=== PATIENT | female | born 1940 | race Caucasian/White ===

== ENCOUNTER 2017-06-24 11:00 | Inpatient (IN) | payer MEDICARE ==
[2017-06-24] MEDS ORDERED: NS 0.9% 1000 ML* 1,000 ML IV ONE ×2 (11:01→11:21)
[2017-06-24] MEDS ORDERED: Piperacillin/Tazobac ADVAN(*) 3.375 GM in NS 0.9% 100 ML* 100 ML IVPB ONE (11:21)
[2017-06-24] MEDS ORDERED: Acetaminophen TAB* 325 MG PO ONE (11:27)
--- NOTE | 2017-06-24 11:28 | RAD ---
INDICATION: "Head feels funny" COMPARISON: None. TECHNIQUE: Contiguous axial sections of the brain were obtained from the skull base to the vertex without contrast. Sagittal and coronal reformats were created and reviewed FINDINGS: The ventricles, cisterns and sulci are within normal limits. There is mild periventricular and subcortical white matter hypoattenuation most consistent with mild microvascular disease. Otherwise the thompson-white matter differentiation is adequately maintained and there is no sulcal effacement. On the first set of axial images there is the appearance of loss of differentiation of the thompson-white matter at the right posterior parietal and occipital lobes (axial image 20 of 36). Subsequent axial imaging acquired 3 minutes later does not demonstrate this finding and this is likely secondary to oblique positioning as opposed to a true intracranial abnormality. This appearance is not discernible in either the coronal or sagittal reformats. No significant focal abnormality or mass effect is present. There is no evidence for intracranial hemorrhage. No significant focal osseous abnormality is present. The visualized portion of the paranasal sinuses and mastoid air cells appear clear. IMPRESSION: Evidence of mild microvascular disease without acute intracranial hemorrhage or other acute intracranial abnormality. Findings discussed with Dr. Epperson over the telephone at 1122 hours on June 24, 2017.
[2017-06-24] MEDS ORDERED: Vancomycin(*) 1,250 MG in NS 0.9% 250 ML* 250 ML IVPB ONE (11:44)
[2017-06-24] MEDS ORDERED: LORazepam INJ* 2 MG/ML 1 ML VIAL IV PUSH ONE (11:45)
[2017-06-24 12:04] LABS: ABS Basophils 0.2 10^3/ul (0-0.2); ABS Eosinophils 0 10^3/ul (0-0.6); ABS Lymphocytes 0.3 10^3/ul (1.0-4.8); ABS Monocytes 0.6 10^3/ul (0-0.8); ABS Neutrophils 14.8 10^3/ul (1.5-7.7); ABS Nucleated RBC 0 10^3/ul; Eosinophil % 0 % (0-6); Hematocrit 37 % (35-47); Hemoglobin 12.4 g/dl (12.0-16.0); Mean Corpuscular HGB Conc 34 g/dl (31-36); Mean Corpuscular Hemoglobin 35 pg (27-31); Mean Corpuscular Volume 105 fL (80-97); Mean Platelet Volume 8 um3 (7.4-10.4); Nucleated Red Blood Cells % 0; Platelet Count 192 10^3/ul (150-450); Red Cell Distribution Width 14 % (10.5-15)
[2017-06-24 12:13] LABS: INR 1.02 (0.77-1.02)
[2017-06-24] MEDS ORDERED: Acetaminophen SUPP* 650 MG SUPP PR ONE (12:14)
--- NOTE | 2017-06-24 12:26 | RAD ---
INDICATION: Neurologic change. Code thompson COMPARISON: None TECHNIQUE: An AP portable view obtained at 1200 hours is submitted. FINDINGS: Bones/Soft Tissues: There are no acute bony findings. Cardiomediastinal: The cardiomediastinal silhouette is normal. Lungs: The interstitium is prominent likely related to a component of interstitial congestion. There may be underlying chronic changes as well. Pleura: There are no pleural effusions. Other: None IMPRESSION: MILD INTERSTITIAL PROMINENCE WITH SUSPECTED INTERSTITIAL CONGESTION.
[2017-06-24 12:28] LABS: EGFR Non-African American 85.1 (>60)
[2017-06-24 12:52] LABS: Monocytes % 3 % (0-13)
[2017-06-24] MEDS ORDERED: D5W IVPB ONE (13:00)
[2017-06-24] MEDS ORDERED: VANCOMYCIN IVPB ONE (13:00)
[2017-06-24] MEDS ORDERED: NS 0.9% 1000 ML* 2,000 ML IV ONE (13:34)
[2017-06-24] MEDS ORDERED: ACYCLOVIR IVPB ONE (14:00)
[2017-06-24] MEDS ORDERED: NS 0.9% IVPB ONE (14:00)
[2017-06-24] MEDS ORDERED: Acetaminophen SUPP* 650 MG SUPP PR PRN (14:37)
[2017-06-24] MEDS ORDERED: Vancomycin per Pharmacy* NOTE FOLLOW UP SCH (15:00)
[2017-06-24 15:09] LABS: Urine Appearance Cloudy; Urine Blood 2+ (Negative); Urine Color Yellow; Urine Ketones Trace (Negative); Urine Protein 1+(30 mg/dL) (Negative); Urine Specific Gravity 1.017 (1.010-1.030); Urine Urobilinogen Negative (Negative)
[2017-06-24] MEDS ORDERED: Ondansetron INJ* 2 MG/ML VIAL ONE (15:43)
[2017-06-24] MEDS ORDERED: Ondansetron INJ* 2 MG/ML VIAL IV ONE (15:47)
[2017-06-24] MEDS: cefTRIAXone(*) 2 GM in NS 0.9% 100 ML* 100 ML IVPB SCH (16:34)
--- NOTE | 2017-06-24 17:08 | PN ---
Progress Note - Progress Note Date of Service: 06/24/08 - Note: Case discussed with Adrianna Carey RN, and patient examined at bedside. This is a 77 y/o female admitted with an acute meningitis that is most likely bacterial ( low CSF glucose) - she is being treated with high-dose ceftriaxone and vancomycin, and a consult has been sent to the ID service. Is hemodynamically stable. Cultures (CSF and blood) pending, and pneumococcal urinary antigen pending. Patient has a history of rheumatoid arthritis, Rx methotrexate and ? steroids.
[2017-06-24] MEDS: methylPREDNISolone 125 MG* 2 ML VIAL IV SCH (18:31)
[2017-06-24] MEDS: NS 0.9% 1000 ML* 1,000 ML IV SCH (19:26)
--- NOTE | 2017-06-24 19:35 | PN ---
Hospitalist Progress Note Date of Service: 06/24/17 . Hospitalist Cross Cover Note: In consultation with Dr. Rod (ICU Attending) I am adding high dose ampicillin to Vancomycin and Ceftriaxone, in accordance with "recommendations for the empiric antimicrobial therapy for purulent meningitis based on patient age and specific predisposing conditions". Reference: [email or web address]= [email or web address]=[email or web address]&rank=2~150&source=see_link
[2017-06-24] MEDS ORDERED: NS 0.9% IVPB SCH (20:00)
[2017-06-24] MEDS ORDERED: ACYCLOVIR IVPB SCH (20:00)
--- NOTE | 2017-06-24 21:22 | HP ---
CC: Rosy Arora NP * HOSPITAL MEDICINE HISTORY AND PHYSICAL: DATE OF ADMISSION: 06/24/17 DOWELER: Rosy Arora NP ATTENDING PHYSICIAN: Ever Rod MD * (Dictation provided by Adrianna Carey NP ) CHIEF COMPLAINT: Patient found confused and down on floor. HISTORY OF PRESENT ILLNESS: Ms. Hernandes is a 77-year-old female with a past medical history of rheumatoid arthritis who presented to the hospital today after her family found her on the floor in the bathroom. Ms. Hernandes was reportedly in her normal state of health. She lives independently with her grandson and is very active. She is on multiple medications including Humira, methotrexate, and hydroxychloroquine for rheumatoid arthritis. She reportedly told her son's girlfriend that she was having some pain in her arm and was going to go to bed early last night. This morning, they called over and when she did not answer the phone, they drove down to check on her. They found her in the bathroom. She appeared restless and uncomfortable. She had slurred speech and EMS was called. EMS reports the patient was complaining of pain along her ribs. The patient also reported when she arrived to the emergency room that she had had increased diarrhea yesterday. I note that from Rosy Arora's note that the patient has 2 to 3 loose stools at baseline daily, but it seems perhaps that this is worsened in the past 24 hours. In the emergency room, the patient has had three loose stools. She seems to be evidencing abdominal pain. Because of her fever and her altered mental status, Ms. Hernandes had an LP. The results of that are pending; however, emergency room physicians made note of extremely purulent CSF by visual inspection. The patient was given Ativan to tolerate this procedure and is now minimally responsive with me. Prior to that, nursing staff reports that she was stiff and moaning, but able to say her name, knew where she was and was able to offer some details about the events leading up to today, more specifically this issue with diarrhea. The patient evidenced severe sepsis with white blood cell count of 16.0, her bands are 7, her neutrophils are 89. Her blood gas shows an acidosis, likely a mixed metabolic and respiratory acidosis with a pH of 7.30. Her BUN and creatinine are normal. She has mild hyponatremia. Her vital signs show a temperature of 102.1. She was hypotensive after getting Ativan with a systolic blood pressure running in the 70s to 80s, but now has systolic blood pressure running around 110. She is not tachycardic. PAST MEDICAL HISTORY: 1. Rheumatoid arthritis. 2. SBO x3. 3. Appendectomy. 4. Hysterectomy. 5. History of cholecystectomy. MEDICATIONS: The patient's pharmacy was called for a list of medications and it was confirmed that she is on: 1. Methotrexate 15 mg p.o. weekly. 2. Folic acid 2 mg p.o. daily. 3. Hydroxychloroquine 200 mg p.o. b.i.d. 4. The note from the patient's commercial collector also notes fexofenadine 60 mg daily. 5. Humira every other week 40 mg. 6. Lidoderm patch as needed. 7. Voltaren 1% to affected area b.i.d. 8. Prolia 60 mg subcutaneous q.6 months. 9. Vitamin E 1 p.o. daily. 10. Vitamin D 1000 units p.o. daily. 11. Lactose intolerance pill 1 daily. 12. Multivitamin 1 p.o. daily. 13. Vitamin C 500 mg p.o. 1 daily. 14. Calcium 1250 mg 1 p.o. daily. 15. Fiber cap 1 p.o. daily. 16. Imodium 2 mg p.r.n. 17. Vitamin A 10,000 units p.o. daily. 18. Combigan 0.2/0.5% one drop both eyes b.i.d. 19. Tylenol Arthritis Pain 650 mg as needed. ALLERGIES: No known drug allergies. FAMILY HISTORY: Unobtainable. SOCIAL HISTORY: Unobtainable, though I do note from the patient's nurse practitioner Ulysses that she is a current smoker, at least she was as of January. REVIEW OF SYSTEMS: Unobtainable. PHYSICAL EXAMINATION GENERAL: Ms. Hernandes is lying on her side in the bed. She appears uncomfortable. Her brow was furrowed and she is moaning gently. The patient is a cachectic elderly female. VITAL SIGNS: Temperature 102.1, pulse rate 93, respiratory rate 29, O2 saturation 98% on room air, blood pressure 120/70. LUNGS: Clear to auscultation bilaterally with no accessory muscle use and good aeration. HEART: S1, S2. No murmur, rub, or gallop, and regular. ABDOMEN: Soft. It appears tender to palpation as the patient has evidence of pain and more moaning when I pressed on her abdomen. The bowel sounds are hyperactive. EXTREMITIES: No cyanosis or edema. NEURO: She is minimally responsive to painful stimulus, withdrawing somewhat. She has positive Babinski's in both legs. She has pupils that are equal and reactive. SKIN: Intact. DIAGNOSTIC STUDIES/LABORATORY DATA: Sodium 132, potassium 3.9, chloride 100, serum bicarbonate 23, BUN 15, creatinine 0.67, glucose 144. Lactic acid 1.6. WBC 16.0, hemoglobin 12.4, hematocrit 37, platelet count 192. INR is 1.02. Blood gas, it is a VBG, showing pH 7.30, pCO2 49, pO2 20, bicarbonate 21.3. Base excess negative 2.7. The patient had a CT brain, which was read as follows, "evidence of mild microvascular disease without acute intracranial hemorrhage or other intracranial abnormality." Chest x-ray is read as follows, "mild interstitial prominence with suspected interstitial congestion." EKG shows a sinus rhythm with a heart rate of 90 with no overt evidence of ischemia. ASSESSMENT: Ms. Hernandes is a 77-year-old female with a past medical history of rheumatoid arthritis, on immunosuppressants, who presents to the hospital with complaint of possible diarrhea over the past 24 hours culminating being found down on the floor in her bathroom by family. In the emergency room today , she had an LP with concern for purulent CSF and possible bacterial meningitis. She is also evidencing severe sepsis with altered mental status. Our plans are for inpatient admission to the intensive care unit for the followin. Severe sepsis. Based on the description of the CSF, bacterial meningitis is the most likely cause of her severe sepsis, especially in the setting of the patient's immunocompromised state. The CSF testing is still being run at this time. In the meantime, she will have ceftriaxone 2 g q.12 hours for meningitis dosing. She will continue on vancomycin per pharmacy dosing and I would like to continue acyclovir until the determination is made regarding meningitis. The patient has 4 L of IV fluids ordered in the emergency room. Blood cultures have been ordered. Lactic acid is normal. 2. Rheumatoid arthritis, plan to hold on her immunosuppressants while she is acutely ill. She will have pain medications as needed. 3. Diarrhea. The patient has had report of increased diarrhea and 3 bowel movements since arriving to the ED. On my examination, I am concerned that she is tender to palpation in the abdomen. Consideration will be given for a CT of the abdomen based on the clinical course. 4. Code status is DNR/DNI and a MOLST form was completed with the patient's son who is at the bedside today. TIME SPENT: Approximately 75 minutes were spent on the admission of this patient, more than half of the time was spent with the patient at the bedside reviewing the events leading up to this hospitalization, performing the physical examination, and reviewing the plan of care. ADRIANNA CAREY, JAQUAN [id number]/[facility] #: [id number] I agree with Adrianna Carey's assessment and management plan - after admission, patient was discovered to have a pneumococcal meningitis, which was managed with ceftriaxone and vancomycin. Ever RODGERS
[2017-06-24] MEDS: Ampicillin IV* 2 GM in NS 0.9% 100 ML* 100 ML IVPB SCH (21:53)
[2017-06-24] MEDS: Heparin VIAL(*) 5000 UNITS/ML VIAL (FIVE THOUSAND) SUBCUT SCH (21:53)
[2017-06-25] MEDS ORDERED: VANCOMYCIN IVPB SCH (02:00)
[2017-06-25] MEDS ORDERED: D5W IVPB SCH (02:00)
[2017-06-25] MEDS: Ampicillin IV* 2 GM in NS 0.9% 100 ML* 100 ML IVPB SCH ×2 (03:38→09:21)
[2017-06-25] MEDS: cefTRIAXone(*) 2 GM in NS 0.9% 100 ML* 100 ML IVPB SCH ×2 (04:16→18:06)
[2017-06-25] MEDS ORDERED: Morphine INJ* 2 MG/ML 1 ML SYRINGE (TWO MG - NEW SYRINGE VERSION) ONE (04:37)
[2017-06-25] MEDS: Heparin VIAL(*) 5000 UNITS/ML VIAL (FIVE THOUSAND) SUBCUT SCH ×3 (06:05→22:47)
[2017-06-25] MEDS: NS 0.9% 1000 ML* 1,000 ML IV SCH (06:06)
[2017-06-25 06:46] LABS: ABS Basophils 0 10^3/ul (0-0.2); ABS Eosinophils 0 10^3/ul (0-0.6); ABS Lymphocytes 0.5 10^3/ul (1.0-4.8); ABS Monocytes 1.1 10^3/ul (0-0.8); ABS Neutrophils 19.1 10^3/ul (1.5-7.7); ABS Nucleated RBC 0.03 10^3/ul; Eosinophil % 0 % (0-6); Hematocrit 34 % (35-47); Hemoglobin 11.6 g/dl (12.0-16.0); Lymphocyte % 2.2 % (25-47); Mean Corpuscular HGB Conc 34 g/dl (31-36); Mean Corpuscular Hemoglobin 35 pg (27-31); Mean Corpuscular Volume 104 fL (80-97); Mean Platelet Volume 9 um3 (7.4-10.4); Nucleated Red Blood Cells % 0.1; Platelet Count 166 10^3/ul (150-450); Red Blood Count 3.29 10^6/ul (4.0-5.4); Red Cell Distribution Width 14 % (10.5-15); White Blood Count 20.7 10^3/ul (3.5-10.8)
[2017-06-25 06:57] LABS: EGFR Non-African American 138.3 (>60)
[2017-06-25] MEDS: methylPREDNISolone 125 MG* 2 ML VIAL IV SCH (08:31)
[2017-06-25] MEDS: Famotidine TAB* 20 MG PO SCH (08:37)
--- NOTE | 2017-06-25 10:22 | PN ---
Critical Care Services: Patient has bacteremic pneumococcal meningitis, with positive cultures in CSF and blood (x2). Is on high-dose ceftriaxone and vancomycin (the recommended initial Rx), and there is no evidence of multiorgan involvement or septic shock. The patient is somnolent but arousable this AM, and complains of a headache when awake. Vital Signs: Temp Pulse Resp BP SpO2 FiO2 98.4 F 85 28 118/63 92 Physical Exam: Gen:Somnolent but arouses. Asking "will I get better" when awake. HEENT: Pupils midposition and reactive. No nuchal rigidity Lungs: clear Extremities: Warm Fluid Balance (Past 24 Hours): 06/25/17 06:59 Intake Total 1619 Output Total 1100 Balance +519 Weight 97 lb Intake: IV Fluids 979 NS (0.9%) 879 IVPB 640 NS (0.9%) 640 Oral 0 Output: [place] 1100 Other: Date of Last Bowel 06/24/2017 Movement Labs: 06/24/17 06/25/17 06/25/17 15:30 06:10 06:10 WBC 20.7 Hgb 11.6 Hct 34 Plt Count 166 Sodium 133 Potassium 3.2 Chloride 103 Carbon Dioxide 22 BUN 8 Creatinine 0.44 Glucose 119 Influenza A (Rapid) Negative Influenza B (Rapid) Negative Studies: CSF and blood cultures: as reported above. Nutrition: None at present. Impression: Pneumococcal meningitis with bacteremia. No evidence for pneumococcal pneumonia. Plan: 1. Continue high-dose ceftriaxone and vancomycin (with target trough level of 20 -25 mcg/mL), pending sensitivities. 2. Begin oral feeding as soon as feasible. 3. ID consult pending.
[2017-06-25] MEDS: KCL premix 10MEQ/50 ML x 3 RUNS IV SCH ×4 (11:30→16:01)
[2017-06-25] MEDS ORDERED: KCL 20 MEQ/100 ML IVPREMIX* 20 MEQ/100 ML BAG IV SCH (12:00)
[2017-06-25] MEDS: Morphine INJ* 2 MG/ML 1 ML SYRINGE (TWO MG - NEW SYRINGE VERSION) IV PRN ×2 (14:29→20:34)
[2017-06-25] MEDS: Vancomycin(*) 750 MG in NS 0.9% 250 ML* 250 ML IVPB SCH ×2 (14:42→22:41)
--- NOTE | 2017-06-25 20:02 | CONS ---
CONSULTATION REPORT: DATE OF CONSULT: 06/25/17 REQUESTING PHYSICIAN: Dr. Willson. CONSULTING SERVICE: Infectious Disease. REASON FOR CONSULT: Bacterial meningitis. IMPRESSION: 1. Invasive pneumococcal infection with bacterial meningitis and pneumococcal bacteremia. 2. Sepsis present on admission due to #1. 3. Encephalopathy present on admission and persistent due to #1. 4. Rheumatoid arthritis, on low-dose corticosteroid and methotrexate. RECOMMENDATION: 1. Agree with ceftriaxone 2 g IV twice daily and vancomycin until the pneumococcal susceptibility data is back, if it is not intermediate to cephalosporins, we could stop the vancomycin. She is still critically ill and has a reasonable risk of mortality from this infection. If she improves then, plan on 2 weeks of IV ceftriaxone. 2. Stress-dose steroids. HISTORY OF PRESENT ILLNESS: This is a 77-year-old woman with rheumatoid arthritis, admitted with severe headache and neck stiffness on 06/24/17. She cannot provide any history of admission because of her infection, which was obtained instead from discussion with Dr. Willson and review of the medical records. The family had found her on the floor in her home and she is otherwise a pretty active person and independent. She had apparently had worsening diarrhea. She had a lumbar puncture done in the emergency room. It showed 2800 white cells, 100% neutrophils, glucose less than 10, protein 420, Gram stain showed gram-positive cocci in chains. I discussed the case with Dr. Willson last night and recommended antibiotics as has been done. She was in the ICU overnight and transferred out with a stable blood pressure. She still cannot provide any history. PAST MEDICAL HISTORY: 1. Rheumatoid arthritis. 2. Small bowel obstruction. 3. Appendectomy. 4. Status post hysterectomy. 5. Status post cholecystectomy. MEDICATIONS: 1. Tylenol. 2. Famotidine. 3. Heparin subcutaneous injection. 4. Methylprednisolone 60 mg a day. 5. Ceftriaxone 2 g every 12 hours. 6. Vancomycin 750 mg every 8 hours. ALLERGIES: No known drug allergies. FAMILY HISTORY: Unobtainable. SOCIAL HISTORY: Unobtainable. REVIEW OF SYSTEMS: Unobtainable given her mental status. PHYSICAL EXAM: Vital Signs: Temperature 37, heart rate 70, respiratory rate 30 , blood pressure 109/43, O2 sat 94% on room air. General: She is asleep. She withdraws to pain. She answers yes or no to a couple of questions; otherwise does not participate. She does not open her eyes. HEENT: There is no conjunctival hemorrhage. Oropharynx without lesions. Neck: Neck is rigid. Lymph Nodes: There is no cervical, supraclavicular, inguinal, axillary, or epitrochlear lymphadenopathy. Heart: Regular and tachycardic without murmurs. Lungs: Clear to auscultation bilaterally. Abdomen: Soft, nontender, and nondistended. There are bowel sounds present. Skin: There is no rash or splinter hemorrhages. Musculoskeletal: There is no spine tenderness to palpation. There is no joint synovitis. She maintains her hips and knees flexed in bed. Neurologic: She withdraws both feet to painful stimuli, both arms to painful stimuli. LABORATORY DATA: White blood cell count 20, hemoglobin 11, and platelets 166. Creatinine is 0.4. Please see impressions and recommendations as outlined above. Thanks for asking me to see Ms. Hernandes in consultation. [id number]/[facility] #: [id number] VISHAL
[2017-06-26] MEDS: Morphine INJ* 2 MG/ML 1 ML SYRINGE (TWO MG - NEW SYRINGE VERSION) IV PRN ×2 (02:56→08:21)
[2017-06-26] MEDS: cefTRIAXone(*) 2 GM in NS 0.9% 100 ML* 100 ML IVPB SCH ×2 (05:06→17:02)
[2017-06-26] MEDS: Heparin VIAL(*) 5000 UNITS/ML VIAL (FIVE THOUSAND) SUBCUT SCH ×3 (05:16→21:41)
[2017-06-26] MEDS: Vancomycin(*) 750 MG in NS 0.9% 250 ML* 250 ML IVPB SCH (05:54)
[2017-06-26 08:20] LABS: Hematocrit 32 % (35-47); Hemoglobin 11.1 g/dl (12.0-16.0); Mean Corpuscular HGB Conc 34 g/dl (31-36); Mean Corpuscular Hemoglobin 35 pg (27-31); Mean Corpuscular Volume 102 fL (80-97); Mean Platelet Volume 8 um3 (7.4-10.4); Platelet Count 184 10^3/ul (150-450); Red Blood Count 3.17 10^6/ul (4.0-5.4); Red Cell Distribution Width 14 % (10.5-15); White Blood Count 25.5 10^3/ul (3.5-10.8)
[2017-06-26] MEDS: methylPREDNISolone 125 MG* 2 ML VIAL IV SCH (08:20)
[2017-06-26] MEDS: Famotidine TAB* 20 MG PO SCH (08:21)
[2017-06-26 08:56] LABS: EGFR Non-African American 138.3 (>60)
--- NOTE | 2017-06-26 09:08 | PN ---
Subjective Date of Service: 06/26/17 Interval History: Pt is c/o mild tailbone pain this AM. She also states she has a persistent headache. She has tried to get up to the side of the bed to go to the bathroom this AM. She had a loose stool and was able to tell me that she will have diarrhea at home intermittently. Objective Active Medications: Acetaminophen (Tylenol Supp*) 650 mg NC Q6H PRN PRN Reason: FEVER Last Admin: 06/25/17 00:46 Dose: 650 mg Famotidine (Pepcid Tab*) 20 mg PO DAILY [facility] Last Admin: 06/26/17 08:21 Dose: 20 mg Heparin Sodium (Porcine) (Heparin Vial(*)) 5,000 units SUBCUT Q8HR [facility] Last Admin: 06/26/17 05:16 Dose: 5,000 units Ceftriaxone Sodium 2 gm/ (Sodium Chloride) 100 mls @ 200 mls/hr IVPB Q12H [facility] Last Admin: 06/26/17 05:06 Dose: 200 mls/hr Lactated Ringer's (Lactated Ringers 1000 Ml Bag*) 1,000 mls @ 75 mls/hr IV PER RATE [facility] Last Admin: 06/26/17 03:21 Dose: 75 mls/hr Methylprednisolone Sodium Succinate (Solu-Medrol 125mg *) 60 mg IV DAILY [facility] Last Admin: 06/26/17 08:20 Dose: 60 mg Morphine Sulfate (Morphine Inj (Syringe)*) 2 mg IV Q4H PRN PRN Reason: PAIN - MILD Last Admin: 06/26/17 08:21 Dose: 2 mg Oxycodone/Acetaminophen (Percocet 5/325 Tab*) 1 tab PO Q4H PRN PRN Reason: PAIN Vital Signs - 8 hr 06/26/17 06/26/17 06/26/17 02:50 02:56 03:06 Temperature 98.8 F Pulse Rate 75 Respiratory 20 20 16 Rate Blood Pressure 106/45 (mmHg) O2 Sat by Pulse 95 Oximetry 06/26/17 06/26/17 06:12 08:21 Temperature 99.1 F Pulse Rate 75 Respiratory 15 18 Rate Blood Pressure 107/43 (mmHg) O2 Sat by Pulse 97 Oximetry Oxygen Devices in Use Now: Nasal Cannula - 2L Appearance: Elderly cachectic female lying in bed getting cleaned up, NAD Eyes: No Scleral Icterus Ears/Nose/Mouth/Throat: - - dry oral mucosa Respiratory: Symmetrical Chest Expansion and Respiratory Effort, Clear to Auscultation Cardiovascular: NL Sounds; No Murmurs; No JVD, RRR, No Edema Abdominal: NL Sounds; No Tenderness; No Distention Extremities: No Clubbing, Cyanosis, - - RA related joint changes Skin: No Rash or Ulcers, No Nodules or Sclerosis Neurological: - - alert, oriented to being at [facility] [place] and year Result Diagrams: 06/26/17 07:59 06/26/17 07:59 Microbiology and Other Data: Microbiology 06/24/17 20:30 Nasal Screen MRSA (PCR)(MICHAEL) - Final Nasal Mrsa Negative Assess/Plan/Problems-Billing Ms Hernandes is a 77 yo F who has a h/o RA and is on MTX weekly who presented to the ER with AMS and was found to have S. pneumoniae bacteremia and meningitis. - Patient Problems (1) Streptococcus pneumoniae meningitis Current Visit: Yes Status: Acute Code(s): G00.1 - PNEUMOCOCCAL MENINGITIS SNOMED Code(s): 42330540 Comment: The patient presented to the ER with altered mental status and was subsequently found to be septic secondary to S pneumoniae bacteremia and meningitis. The patient was treated with initially vancomycin and high dose ceftriaxone. Sensitivities are back on the blood cultures and she is sensitive to ceftriaxone so will stop the vancomycin. Will get follow up blood cultures to ensure she has cleared her blood. She will need 2 weeks of IV abx per Dr. Fernandez. Continue pain control for her headache. WBC count up today-? secondary to her infection vs solumedrol. (2) E-coli UTI Current Visit: Yes Status: Acute Code(s): N39.0 - URINARY TRACT INFECTION, SITE NOT SPECIFIED; B96.20 - UNSP ESCHERICHIA COLI THE CAUSE OF DISEASES CLASSD [facility] SNOMED Code(s): 072135817 Comment: The patient's urine has grown Ecoli. Sensitivities are pending, for now continue ceftriaxone alone. (3) Rheumatoid arthritis Current Visit: Yes Status: Acute Code(s): M06.9 - RHEUMATOID ARTHRITIS, UNSPECIFIED SNOMED Code(s): 96424112 Comment: MTX on hold and will need to be held while being treated for her meningitis. (4) DVT prophylaxis Current Visit: Yes Status: Acute Code(s): GHJ3538 - SNOMED Code(s): 083637060 Comment: SQ heparin (5) Full code status Current Visit: Yes Status: Acute Code(s): Z78.9 - OTHER SPECIFIED HEALTH STATUS SNOMED Code(s): 971886004
[2017-06-26] MEDS ORDERED: Potassium Chlor TAB* 20 MEQ TAB.ER PO ONE (09:12)
[2017-06-26] MEDS: KCL 10 MEQ/50 ML IVPREMIX* 10 MEQ/50 ML BAG IV SCH ×3 (09:52→12:50)
[2017-06-26] MEDS ORDERED: Vancomycin Trough Check NOTE FOLLOW UP ONE (14:00)
[2017-06-26] MEDS: oxyCODONE/Acetamin 5/325 MG* TAB PO PRN ×2 (17:13→21:45)
[2017-06-27] MEDS: cefTRIAXone(*) 2 GM in NS 0.9% 100 ML* 100 ML IVPB SCH ×2 (04:24→18:00)
[2017-06-27] MEDS: Heparin VIAL(*) 5000 UNITS/ML VIAL (FIVE THOUSAND) SUBCUT SCH ×3 (05:35→22:18)
[2017-06-27 07:22] LABS: Hematocrit 33 % (35-47); Hemoglobin 11.4 g/dl (12.0-16.0); Mean Corpuscular HGB Conc 34 g/dl (31-36); Mean Corpuscular Hemoglobin 35 pg (27-31); Mean Corpuscular Volume 103 fL (80-97); Mean Platelet Volume 8 um3 (7.4-10.4); Platelet Count 232 10^3/ul (150-450); Red Blood Count 3.26 10^6/ul (4.0-5.4); Red Cell Distribution Width 14 % (10.5-15); White Blood Count 19.4 10^3/ul (3.5-10.8)
[2017-06-27 07:37] LABS: EGFR Non-African American 138.3 (>60)
[2017-06-27] MEDS: Famotidine TAB* 20 MG PO SCH (09:10)
[2017-06-27] MEDS: oxyCODONE/Acetamin 5/325 MG* TAB PO PRN ×2 (09:10→18:34)
[2017-06-27] MEDS: methylPREDNISolone 125 MG* 2 ML VIAL IV SCH (09:13)
[2017-06-27] MEDS ORDERED: Potassium Chlor TAB* 20 MEQ TAB.ER PO ONE (11:47)
--- NOTE | 2017-06-27 12:09 | PN ---
Subjective Date of Service: 06/27/17 Interval History: Pt is generally feeling ok. She developed some RLQ abdominal pain earlier today. She had some diarrhea this AM. She continues to have headache. No nausea. Objective Active Medications: Acetaminophen (Tylenol Supp*) 650 mg ME Q6H PRN PRN Reason: FEVER Last Admin: 06/25/17 00:46 Dose: 650 mg Famotidine (Pepcid Tab*) 20 mg PO DAILY [facility] Last Admin: 06/27/17 09:10 Dose: 20 mg Heparin Sodium (Porcine) (Heparin Vial(*)) 5,000 units SUBCUT Q8HR [facility] Last Admin: 06/27/17 05:35 Dose: 5,000 units Ceftriaxone Sodium 2 gm/ (Sodium Chloride) 100 mls @ 200 mls/hr IVPB Q12H [facility] Last Admin: 06/27/17 04:24 Dose: 200 mls/hr Lactated Ringer's (Lactated Ringers 1000 Ml Bag*) 1,000 mls @ 75 mls/hr IV PER RATE [facility] Last Admin: 06/27/17 00:10 Dose: 75 mls/hr Methylprednisolone Sodium Succinate (Solu-Medrol 125mg *) 60 mg IV DAILY [facility] Last Admin: 06/27/17 09:13 Dose: 60 mg Morphine Sulfate (Morphine Inj (Syringe)*) 2 mg IV Q4H PRN PRN Reason: PAIN - MILD Last Admin: 06/26/17 08:21 Dose: 2 mg Oxycodone/Acetaminophen (Percocet 5/325 Tab*) 1 tab PO Q4H PRN PRN Reason: PAIN Last Admin: 06/27/17 09:10 Dose: 1 tab Vital Signs - 8 hr 06/27/17 09:10 Respiratory 16 Rate Oxygen Devices in Use Now: Nasal Cannula Appearance: Elderly thin female sitting up in bed, visiting with family, NAD Eyes: No Scleral Icterus Ears/Nose/Mouth/Throat: - - dry oral mucosa Respiratory: Symmetrical Chest Expansion and Respiratory Effort, Clear to Auscultation Cardiovascular: NL Sounds; No Murmurs; No JVD, RRR, No Edema Abdominal: NL Sounds; No Tenderness; No Distention Extremities: No Clubbing, Cyanosis Skin: No Rash or Ulcers, No Nodules or Sclerosis Neurological: Alert and Oriented x 3 Result Diagrams: 06/27/17 06:46 06/27/17 06:46 Microbiology and Other Data: Microbiology 06/24/17 20:30 Nasal Screen MRSA (PCR)(MICHAEL) - Final Nasal Mrsa Negative Assess/Plan/Problems-Billing Ms Hernandes is a 77 yo F who has a h/o RA and is on MTX weekly who presented to the ER with AMS and was found to have S. pneumoniae bacteremia and meningitis. - Patient Problems (1) Streptococcus pneumoniae meningitis Current Visit: Yes Status: Acute Code(s): G00.1 - PNEUMOCOCCAL MENINGITIS SNOMED Code(s): 68601018 Comment: The patient presented to the ER with altered mental status and was subsequently found to be septic secondary to S pneumoniae bacteremia and meningitis. Continue ceftriaxone 2g IV daily. She will need 14 days of IV Abx. Continue pain control. WBC count has improved some today. Stop solumedrol today. She has had 4 doses of solumedrol. (2) E-coli UTI Current Visit: Yes Status: Acute Code(s): N39.0 - URINARY TRACT INFECTION, SITE NOT SPECIFIED; B96.20 - UNSP ESCHERICHIA COLI THE CAUSE OF DISEASES CLASSD [facility] SNOMED Code(s): 061407708 Comment: The patient's urine has grown Ecoli sensitive to ceftriaxone. (3) Rheumatoid arthritis Current Visit: Yes Status: Acute Code(s): M06.9 - RHEUMATOID ARTHRITIS, UNSPECIFIED SNOMED Code(s): 26930269 Comment: MTX on hold and will need to be held while being treated for her meningitis. (4) DVT prophylaxis Current Visit: Yes Status: Acute Code(s): XVB3284 - SNOMED Code(s): 271172581 Comment: SQ heparin (5) Full code status Current Visit: Yes Status: Acute Code(s): Z78.9 - OTHER SPECIFIED HEALTH STATUS SNOMED Code(s): 835867968
--- NOTE | 2017-06-27 13:39 | RAD ---
Indication: LEFT shoulder pain post fall. Comparison: No relevant prior exams available on the [facility] PACS for comparison. Technique: Internal and external rotation AP and scapular Y views LEFT shoulder Report: Normal acromioclavicular and glenohumeral joint alignment. Mild acromioclavicular and moderate glenohumeral joint osteophytic lipping. Mild glenohumeral joint space narrowing. Suggestion of small loose bodies at the axillary recess of the glenohumeral joint. Negative for fracture. Unremarkable soft tissue contours. Patchy interstitial and alveolar opacity throughout the visualized LEFT lung similar to the prior exam. IMPRESSION: Negative for LEFT shoulder fracture or dislocation. Osteoarthritis.
[2017-06-27] MEDS: Morphine INJ* 2 MG/ML 1 ML SYRINGE (TWO MG - NEW SYRINGE VERSION) IV PRN ×2 (15:17→19:43)
[2017-06-28] MEDS: oxyCODONE/Acetamin 5/325 MG* TAB PO PRN ×2 (02:36→17:30)
[2017-06-28] MEDS: cefTRIAXone(*) 2 GM in NS 0.9% 100 ML* 100 ML IVPB SCH ×2 (04:51→17:14)
[2017-06-28] MEDS: Heparin VIAL(*) 5000 UNITS/ML VIAL (FIVE THOUSAND) SUBCUT SCH ×3 (04:51→22:03)
[2017-06-28 06:32] LABS: Hematocrit 31 % (35-47); Hemoglobin 10.7 g/dl (12.0-16.0); Mean Corpuscular HGB Conc 34 g/dl (31-36); Mean Corpuscular Hemoglobin 35 pg (27-31); Mean Corpuscular Volume 101 fL (80-97); Mean Platelet Volume 8 um3 (7.4-10.4); Platelet Count 252 10^3/ul (150-450); Red Cell Distribution Width 14 % (10.5-15); White Blood Count 13.2 10^3/ul (3.5-10.8)
[2017-06-28] MEDS: Morphine INJ* 2 MG/ML 1 ML SYRINGE (TWO MG - NEW SYRINGE VERSION) IV PRN ×3 (09:15→23:04)
[2017-06-28] MEDS: Famotidine TAB* 20 MG PO SCH (09:18)
[2017-06-28] MEDS: methylPREDNISolone 125 MG* 2 ML VIAL IV SCH (09:18)
[2017-06-28] MEDS ORDERED: Magnesium Hydroxide LIQ* 30 ML UDC PO ONE (15:26)
--- NOTE | 2017-06-28 16:01 | PN ---
Progress Note - Progress Note Date of Service: 06/28/17 SOAP: Subjective: CC: headache HPI: 77 year old woman with meningitis; more awake and feels less confused but her headache continues, though seems better. Still stiff neck. Tylenol and pain medicine help. No weakness in arms or legs. Hearing is ok. No fever, rash or diarrhea. Objective: [] Vital Signs Temp 36.6 C 06/28/17 07:35 Pulse 57 06/28/17 07:35 Resp 18 06/28/17 11:45 BP 113/56 06/28/17 07:35 Pulse Ox 99 06/28/17 07:35 Intake & Output 06/27/17 06/28/17 06/28/17 18:59 06:59 18:59 Intake Total 1388 936 316 Output Total 200 1650 Balance 1188 -714 316 Intake: IV Fluids 618 646 196 LR 618 616 196 NS (0.9%) 30 IVPB 50 ABX - CEFTRIAXONE 50 Oral 770 240 120 Output: Urine 200 1650 Other: Estimated Void Medium Medium Large # Bowel Movements 3 0 Estimated Stool Amount Medium # Voids 1 1 1 Gen:awake, no distress HEENT:MMM, no thrush Neuro: awake and alert, answers questions appropriately; moves all extremities. Heart:RRR no murmur Lungs:CTA BL Abd:+BS NTND soft Skin: no rash MSK: neck non tender but stiff Laboratory Results - last 24 hr 06/24/17 06/28/17 13:35 06:23 WBC 13.2 H RBC 3.10 L Hgb 10.7 L Hct 31 L MCV 101 H MCH 35 H MCHC 34 RDW 14 Plt Count 252 MPV 8 Fluid Cell Count Rvw By Assessment: 1. Pneumococcal meningitis 2. Rheumatoid arthritis 3. headache Plan: 1. continue ceftriaxone 2 gm IV Q12hrs day 10/08 2. anti-inlammatories as able
--- NOTE | 2017-06-28 16:15 | PN ---
Subjective Date of Service: 06/28/17 Interval History: Pt is still confused and c/o headache and constipation Objective Active Medications: Acetaminophen (Tylenol Supp*) 650 mg [place] Q6H PRN PRN Reason: FEVER Last Admin: 06/25/17 00:46 Dose: 650 mg Docusate Sodium (Colace Cap*) 100 mg PO BID [facility] Heparin Sodium (Porcine) (Heparin Vial(*)) 5,000 units SUBCUT Q8HR [facility] Last Admin: 06/28/17 14:49 Dose: 5,000 units Ceftriaxone Sodium 2 gm/ (Sodium Chloride) 100 mls @ 200 mls/hr IVPB Q12H [facility] Last Admin: 06/28/17 04:51 Dose: 200 mls/hr Lactated Ringer's (Lactated Ringers 1000 Ml Bag*) 1,000 mls @ 75 mls/hr IV PER RATE [facility] Last Admin: 06/28/17 15:52 Dose: 75 mls/hr Morphine Sulfate (Morphine Inj (Syringe)*) 2 mg IV Q4H PRN PRN Reason: PAIN - MILD Last Admin: 06/28/17 09:15 Dose: 2 mg Oxycodone/Acetaminophen (Percocet 5/325 Tab*) 1 tab PO Q4H PRN PRN Reason: PAIN Last Admin: 06/28/17 02:36 Dose: 1 tab Vital Signs - 8 hr 06/28/17 06/28/17 09:15 11:45 Respiratory 20 18 Rate Oxygen Devices in Use Now: Nasal Cannula Appearance: 77 yo F in NAD, AAOx1 Eyes: No Scleral Icterus, PERRLA Ears/Nose/Mouth/Throat: NL Teeth, Lips, Gums, Mucous Membranes Moist Neck: NL Appearance and Movements; NL JVP, Trachea Midline Respiratory: Symmetrical Chest Expansion and Respiratory Effort Cardiovascular: NL Sounds; No Murmurs; No JVD, RRR Abdominal: - - mild tenderness in r mid abdomen, no rebound, no guarding, BS+ Lymphatic: No Cervical Adenopathy Extremities: No Edema, No Clubbing, Cyanosis Skin: No Rash or Ulcers, No Nodules or Sclerosis Neurological: NL Muscle Strength and Tone, - - neck stiffness present Result Diagrams: 06/28/17 06:23 06/27/17 06:46 Microbiology and Other Data: Microbiology 06/24/17 20:30 Nasal Screen MRSA (PCR)(MICHAEL) - Final Nasal Mrsa Negative Assess/Plan/Problems-Billing Ms Hernandes is a 77 yo F who has a h/o RA and is on MTX weekly who presented to the ER with AMS and was found to have S. pneumoniae bacteremia and meningitis. - Patient Problems (1) Streptococcus pneumoniae meningitis Comment: The patient presented to the ER with altered mental status and was subsequently found to be septic secondary to S pneumoniae bacteremia and meningitis. Continue ceftriaxone 2g IV daily-day 10/08 Continue pain control. WBC count has improved some today. Solumedrol stopped on 06/27/17. She has had 4 doses of solumedrol. (2) E-coli UTI Comment: The patient's urine has grown Ecoli sensitive to ceftriaxone. (3) Rheumatoid arthritis Comment: MTX on hold and will need to be held while being treated for her meningitis. (4) Abdominal tenderness Comment: may be due to constipation. start laxatives (5) DVT prophylaxis Comment: SQ heparin Status and Disposition: inpatient
[2017-06-28] MEDS: predniSONE TAB* 20 MG PO SCH (17:14)
[2017-06-28] MEDS: Docusate CAP* 100 MG PO SCH (22:03)
[2017-06-29] MEDS: cefTRIAXone(*) 2 GM in NS 0.9% 100 ML* 100 ML IVPB SCH ×2 (04:33→17:47)
[2017-06-29] MEDS: Heparin VIAL(*) 5000 UNITS/ML VIAL (FIVE THOUSAND) SUBCUT SCH ×3 (05:30→22:29)
[2017-06-29 06:32] LABS: Hematocrit 37 % (35-47); Hemoglobin 12.8 g/dl (12.0-16.0); Mean Corpuscular HGB Conc 35 g/dl (31-36); Mean Corpuscular Hemoglobin 36 pg (27-31); Mean Corpuscular Volume 103 fL (80-97); Red Blood Count 3.57 10^6/ul (4.0-5.4); Red Cell Distribution Width 14 % (10.5-15); White Blood Count 9.9 10^3/ul (3.5-10.8)
[2017-06-29 06:52] LABS: EGFR Non-African American 199.7 (>60)
[2017-06-29 07:32] LABS: Monocytes % 7 % (0-13)
[2017-06-29 07:33] LABS: ABS Basophils 0 10^3/ul (0-0.2); ABS Eosinophils 0 10^3/ul (0-0.6); ABS Lymphocytes 2.1 10^3/ul (1.0-4.8); ABS Monocytes 0.7 10^3/ul (0-0.8); ABS Neutrophils 7.1 10^3/ul (1.5-7.7); Platelet Count 302 10^3/ul (150-450)
[2017-06-29] MEDS ORDERED: Sodium Citrate/Citric Acid* 15 ML UDC PO ONE (08:27)
--- NOTE | 2017-06-29 08:34 | PN ---
Subjective Date of Service: 06/29/17 Interval History: Pt c/o headache, more oriented today. Objective Active Medications: Acetaminophen (Tylenol Supp*) 650 mg [place] Q6H PRN PRN Reason: FEVER Last Admin: 06/25/17 00:46 Dose: 650 mg Citric Acid/Sodium Citrate (Bicitra*) 15 ml PO ONCE ONE Stop: 06/29/17 08:28 Docusate Sodium (Colace Cap*) 100 mg PO BID [facility] Last Admin: 06/28/17 22:03 Dose: 100 mg Heparin Sodium (Porcine) (Heparin Vial(*)) 5,000 units SUBCUT Q8HR [facility] Last Admin: 06/29/17 05:30 Dose: 5,000 units Ceftriaxone Sodium 2 gm/ (Sodium Chloride) 100 mls @ 200 mls/hr IVPB Q12H [facility] Last Admin: 06/29/17 04:33 Dose: 200 mls/hr Lactated Ringer's (Lactated Ringers 1000 Ml Bag*) 1,000 mls @ 75 mls/hr IV PER RATE [facility] Morphine Sulfate (Morphine Inj (Syringe)*) 2 mg IV Q4H PRN PRN Reason: PAIN - MILD Last Admin: 06/28/17 23:04 Dose: 2 mg Oxycodone/Acetaminophen (Percocet 5/325 Tab*) 1 tab PO Q4H PRN PRN Reason: PAIN Last Admin: 06/28/17 17:30 Dose: 1 tab Prednisone (Deltasone Tab*) 40 mg PO DAILY [facility] Last Admin: 06/28/17 17:14 Dose: 40 mg Vital Signs - 8 hr 06/29/17 06/29/17 00:35 02:40 Temperature 98.0 F Pulse Rate 62 Respiratory 16 16 Rate Blood Pressure 124/48 (mmHg) O2 Sat by Pulse 100 Oximetry Oxygen Devices in Use Now: None Appearance: 77 yo f in nAD, AAOx2 Eyes: No Scleral Icterus, PERRLA Ears/Nose/Mouth/Throat: NL Teeth, Lips, Gums, Mucous Membranes Moist Neck: NL Appearance and Movements; NL JVP, Trachea Midline Respiratory: Symmetrical Chest Expansion and Respiratory Effort, Clear to Auscultation Cardiovascular: NL Sounds; No Murmurs; No JVD, RRR Abdominal: NL Sounds; No Tenderness; No Distention, No Hepatosplenomegaly Lymphatic: No Cervical Adenopathy Extremities: No Edema, No Clubbing, Cyanosis Skin: No Rash or Ulcers, No Nodules or Sclerosis Neurological: - - neck stiffness still present, motor 5/5 b/l Result Diagrams: 06/29/17 06:18 06/29/17 07:30 Microbiology and Other Data: Microbiology 06/24/17 20:30 Nasal Screen MRSA (PCR)(MICHAEL) - Final Nasal Mrsa Negative Assess/Plan/Problems-Billing Ms Hernandes is a 77 yo F who has a h/o RA and is on MTX weekly who presented to the ER with AMS and was found to have S. pneumoniae bacteremia and meningitis. - Patient Problems (1) Streptococcus pneumoniae meningitis Comment: The patient presented to the ER with altered mental status and was subsequently found to be septic secondary to S pneumoniae bacteremia and meningitis. Continue ceftriaxone 2g IV daily-day 11/07 Continue pain control.. Solumedrol stopped on 06/27/17. She has had 4 doses of solumedrol, on 06/28/16 started on Prednisone with aim of a slow taper-for now will cont the dose of 40 mg QD. (2) E-coli UTI Comment: The patient's urine has grown Ecoli sensitive to ceftriaxone. (3) Rheumatoid arthritis Comment: MTX on hold and will need to be held while being treated for her meningitis. (4) Abdominal tenderness Comment: may be due to constipation.Resolved (5) DVT prophylaxis Comment: SQ heparin Status and Disposition: inpatient
[2017-06-29] MEDS: Morphine INJ* 2 MG/ML 1 ML SYRINGE (TWO MG - NEW SYRINGE VERSION) IV PRN ×2 (08:43→17:48)
[2017-06-29] MEDS: predniSONE TAB* 20 MG PO SCH (08:47)
[2017-06-29] MEDS: Docusate CAP* 100 MG PO SCH ×2 (08:47→20:38)
[2017-06-30] MEDS: cefTRIAXone(*) 2 GM in NS 0.9% 100 ML* 100 ML IVPB SCH ×2 (04:37→17:28)
[2017-06-30] MEDS: Heparin VIAL(*) 5000 UNITS/ML VIAL (FIVE THOUSAND) SUBCUT SCH ×3 (05:38→22:41)
[2017-06-30] MEDS: Docusate CAP* 100 MG PO SCH ×2 (09:08→22:40)
[2017-06-30] MEDS: predniSONE TAB* 20 MG PO SCH (09:28)
[2017-06-30] MEDS: Lactobacillus Acidophilu (GG)* 1 CAP CAP PO SCH ×2 (09:28→22:41)
[2017-06-30] MEDS: oxyCODONE/Acetamin 5/325 MG* TAB PO PRN ×3 (09:40→22:41)
[2017-06-30 09:57] LABS: EGFR Non-African American 174.3 (>60)
--- NOTE | 2017-06-30 11:36 | PN ---
Subjective Date of Service: 06/30/17 Interval History: pt was seen with family by the bedside. Feels better. Sitting up and eating, still mildly disoriented. C/o 5/10 headache. C/o frequent loose stools, no abd pain Objective Active Medications: Acetaminophen (Tylenol Supp*) 650 mg [place] Q6H PRN PRN Reason: FEVER Last Admin: 06/25/17 00:46 Dose: 650 mg Docusate Sodium (Colace Cap*) 100 mg PO BID [facility] Last Admin: 06/30/17 09:08 Dose: Not Given Heparin Sodium (Porcine) (Heparin Vial(*)) 5,000 units SUBCUT Q8HR [facility] Last Admin: 06/30/17 05:38 Dose: 5,000 units Ceftriaxone Sodium 2 gm/ (Sodium Chloride) 100 mls @ 200 mls/hr IVPB Q12H [facility] Last Admin: 06/30/17 04:37 Dose: 200 mls/hr Lactated Ringer's (Lactated Ringers 1000 Ml Bag*) 1,000 mls @ 75 mls/hr IV PER RATE [facility] Last Admin: 06/30/17 05:38 Dose: 75 mls/hr Lactobacillus Rhamnosus (Culturelle*) 1 cap PO BID [facility] Last Admin: 06/30/17 09:28 Dose: 1 cap Morphine Sulfate (Morphine Inj (Syringe)*) 2 mg IV Q4H PRN PRN Reason: PAIN - MILD Last Admin: 06/29/17 17:48 Dose: 2 mg Oxycodone/Acetaminophen (Percocet 5/325 Tab*) 1 tab PO Q4H PRN PRN Reason: PAIN Last Admin: 06/30/17 09:40 Dose: 1 tab Prednisone (Deltasone Tab*) 40 mg PO DAILY [facility] Last Admin: 06/30/17 09:28 Dose: 40 mg Vital Signs - 8 hr 06/30/17 09:40 Respiratory 16 Rate Oxygen Devices in Use Now: None Appearance: 77 yo F in NAD, AAOx2 Eyes: No Scleral Icterus, PERRLA Ears/Nose/Mouth/Throat: NL Teeth, Lips, Gums, Mucous Membranes Moist Neck: NL Appearance and Movements; NL JVP, Trachea Midline Respiratory: Symmetrical Chest Expansion and Respiratory Effort, Clear to Auscultation Cardiovascular: NL Sounds; No Murmurs; No JVD, RRR Abdominal: NL Sounds; No Tenderness; No Distention Lymphatic: No Cervical Adenopathy Extremities: No Edema, No Clubbing, Cyanosis Skin: No Rash or Ulcers, No Nodules or Sclerosis Neurological: - - neck stiffness still present Result Diagrams: 06/29/17 06:18 06/30/17 09:13 Microbiology and Other Data: Microbiology 06/24/17 20:30 Nasal Screen MRSA (PCR)(MICHAEL) - Final Nasal Mrsa Negative Assess/Plan/Problems-Billing Ms Hernandes is a 77 yo F who has a h/o RA and is on MTX weekly who presented to the ER with AMS and was found to have S. pneumoniae bacteremia and meningitis. - Patient Problems (1) Streptococcus pneumoniae meningitis Comment: The patient presented to the ER with altered mental status and was subsequently found to be septic secondary to S pneumoniae bacteremia and meningitis. Continue ceftriaxone 2g IV daily-day 6 Continue pain control. Solumedrol stopped on 06/27/17. She has had 4 doses of solumedrol, on 06/28/16 started on Prednisone with aim of a slow taper-for now will cont the dose of 40 mg QD. (2) E-coli UTI Comment: The patient's urine has grown Ecoli sensitive to ceftriaxone. (3) Rheumatoid arthritis Comment: MTX on hold and will need to be held while being treated for her meningitis. (4) Abdominal tenderness Comment: may be due to constipation.Resolved (5) DVT prophylaxis Comment: SQ heparin Status and Disposition: inpatient
[2017-07-01] MEDS: cefTRIAXone(*) 2 GM in NS 0.9% 100 ML* 100 ML IVPB SCH ×2 (04:30→17:14)
[2017-07-01] MEDS: Heparin VIAL(*) 5000 UNITS/ML VIAL (FIVE THOUSAND) SUBCUT SCH ×3 (06:05→23:12)
[2017-07-01] MEDS: oxyCODONE/Acetamin 5/325 MG* TAB PO PRN ×2 (06:05→20:46)
[2017-07-01] MEDS ORDERED: Potassium Chlor TAB* 20 MEQ TAB.ER PO SCH (09:00)
[2017-07-01] MEDS: Docusate CAP* 100 MG PO SCH ×2 (10:15→20:45)
[2017-07-01] MEDS: Lactobacillus Acidophilu (GG)* 1 CAP CAP PO SCH ×2 (10:15→20:46)
[2017-07-01] MEDS: predniSONE TAB* 20 MG PO SCH (10:16)
--- NOTE | 2017-07-01 17:34 | PN ---
Subjective Date of Service: 07/01/17 Interval History: Pt feels better, but is very weak, needs 2 person assistance to walk Objective Active Medications: Acetaminophen (Tylenol Supp*) 650 mg [place] Q6H PRN PRN Reason: FEVER Last Admin: 06/25/17 00:46 Dose: 650 mg Docusate Sodium (Colace Cap*) 100 mg PO BID [facility] Last Admin: 07/01/17 10:15 Dose: 100 mg Heparin Sodium (Porcine) (Heparin Vial(*)) 5,000 units SUBCUT Q8HR [facility] Last Admin: 07/01/17 15:40 Dose: 5,000 units Ceftriaxone Sodium 2 gm/ (Sodium Chloride) 100 mls @ 200 mls/hr IVPB Q12H [facility] Last Admin: 07/01/17 17:14 Dose: 200 mls/hr Lactated Ringer's (Lactated Ringers 1000 Ml Bag*) 1,000 mls @ 75 mls/hr IV PER RATE [facility] Last Admin: 07/01/17 10:27 Dose: 75 mls/hr Lactobacillus Rhamnosus (Culturelle*) 1 cap PO BID [facility] Last Admin: 07/01/17 10:15 Dose: 1 cap Morphine Sulfate (Morphine Inj (Syringe)*) 2 mg IV Q4H PRN PRN Reason: PAIN - MILD Last Admin: 06/29/17 17:48 Dose: 2 mg Oxycodone/Acetaminophen (Percocet 5/325 Tab*) 1 tab PO Q4H PRN PRN Reason: PAIN Last Admin: 07/01/17 06:05 Dose: 1 tab Potassium Chloride (Klor Con Er Tab*) 40 meq PO DAILY [facility] Last Admin: 07/01/17 10:16 Dose: 40 meq Prednisone (Deltasone Tab*) 20 mg PO DAILY [facility] Last Admin: 07/01/17 10:16 Dose: 20 mg Oxygen Devices in Use Now: Nasal Cannula Appearance: 77 yo F in nAD, aAOx3 Eyes: No Scleral Icterus, PERRLA Ears/Nose/Mouth/Throat: NL Teeth, Lips, Gums, Clear Oropharnyx, Mucous Membranes Moist Neck: NL Appearance and Movements; NL JVP, Trachea Midline Respiratory: Symmetrical Chest Expansion and Respiratory Effort, Clear to Auscultation Cardiovascular: NL Sounds; No Murmurs; No JVD, RRR Abdominal: NL Sounds; No Tenderness; No Distention Lymphatic: No Cervical Adenopathy Extremities: No Edema, No Clubbing, Cyanosis Skin: No Rash or Ulcers, No Nodules or Sclerosis Neurological: Alert and Oriented x 3, NL Muscle Strength and Tone, - - neck stiffness resolving Result Diagrams: 06/29/17 06:18 06/30/17 09:13 Microbiology and Other Data: Microbiology 06/24/17 20:30 Nasal Screen MRSA (PCR)(MICHAEL) - Final Nasal Mrsa Negative Assess/Plan/Problems-Billing Ms Hernandes is a 77 yo F who has a h/o RA and is on MTX weekly who presented to the ER with AMS and was found to have S. pneumoniae bacteremia and meningitis. - Patient Problems (1) Streptococcus pneumoniae meningitis Comment: The patient presented to the ER with altered mental status and was subsequently found to be septic secondary to S pneumoniae bacteremia and meningitis. Continue ceftriaxone 2g IV daily-day 7/14 Continue pain control. Solumedrol stopped on 06/27/17. She has had 4 doses of solumedrol, on 06/28/16 started on Prednisone with aim of a slow taper (2) E-coli UTI Comment: The patient's urine has grown Ecoli sensitive to ceftriaxone. (3) Rheumatoid arthritis Comment: MTX on hold and will need to be held while being treated for her meningitis. (4) Abdominal tenderness Comment: may be due to constipation.Resolved (5) DVT prophylaxis Comment: SQ heparin Status and Disposition: inpatient
[2017-07-02] MEDS: cefTRIAXone(*) 2 GM in NS 0.9% 100 ML* 100 ML IVPB SCH ×2 (05:00→16:04)
[2017-07-02] MEDS: Heparin VIAL(*) 5000 UNITS/ML VIAL (FIVE THOUSAND) SUBCUT SCH ×3 (07:08→21:42)
[2017-07-02] MEDS: Lactobacillus Acidophilu (GG)* 1 CAP CAP PO SCH ×2 (09:00→21:41)
[2017-07-02] MEDS: Potassium Chlor TAB* 20 MEQ TAB.ER PO SCH (09:00)
[2017-07-02] MEDS: predniSONE TAB* 20 MG PO SCH (09:00)
[2017-07-02] MEDS: Docusate CAP* 100 MG PO SCH ×2 (09:01→21:41)
[2017-07-02] MEDS ORDERED: Morphine INJ* 2 MG/ML 1 ML CARPUJECT IV PRN (09:30)
[2017-07-02] MEDS: oxyCODONE/Acetamin 5/325 MG* TAB PO PRN (10:45)
[2017-07-02 11:45] LABS: Hematocrit 37 % (35-47); Hemoglobin 12.5 g/dl (12.0-16.0); Mean Corpuscular HGB Conc 34 g/dl (31-36); Mean Corpuscular Hemoglobin 35 pg (27-31); Mean Corpuscular Volume 103 fL (80-97); Mean Platelet Volume 8 um3 (7.4-10.4); Platelet Count 360 10^3/ul (150-450); Red Blood Count 3.56 10^6/ul (4.0-5.4); Red Cell Distribution Width 14 % (10.5-15); White Blood Count 12.5 10^3/ul (3.5-10.8)
[2017-07-02 12:07] LABS: EGFR Non-African American 168.9 (>60)
[2017-07-02 13:30] LABS: ABS Basophils 0 10^3/ul (0-0.2); ABS Eosinophils 0.1 10^3/ul (0-0.6); ABS Lymphocytes 0.7 10^3/ul (1.0-4.8); ABS Monocytes 0.4 10^3/ul (0-0.8); ABS Neutrophils 11.3 10^3/ul (1.5-7.7); ABS Nucleated RBC 0 10^3/ul; Eosinophil % 0.7 % (0-6); Lymphocyte % 5.6 % (25-47); Nucleated Red Blood Cells % 0
--- NOTE | 2017-07-02 15:05 | PN ---
Subjective Date of Service: 07/02/17 Interval History: Had headache this AM, then felt dizzy after morphine, but overall feels stronger Objective Active Medications: Acetaminophen (Tylenol Tab*) 650 mg PO Q4H PRN PRN Reason: FEVER/PAIN Docusate Sodium (Colace Cap*) 100 mg PO BID [facility] Last Admin: 07/02/17 09:01 Dose: Not Given Heparin Sodium (Porcine) (Heparin Vial(*)) 5,000 units SUBCUT Q8HR [facility] Last Admin: 07/02/17 13:39 Dose: 5,000 units Ceftriaxone Sodium 2 gm/ (Sodium Chloride) 100 mls @ 200 mls/hr IVPB Q12H [facility] Last Admin: 07/02/17 05:00 Dose: 200 mls/hr Lactated Ringer's (Lactated Ringers 1000 Ml Bag*) 1,000 mls @ 75 mls/hr IV PER RATE [facility] Last Admin: 07/02/17 00:03 Dose: 75 mls/hr Lactobacillus Rhamnosus (Culturelle*) 1 cap PO BID [facility] Last Admin: 07/02/17 09:00 Dose: 1 cap Morphine Sulfate (Morphine Inj (Syringe)*) 1 mg IV Q4H PRN PRN Reason: PAIN Oxycodone/Acetaminophen (Percocet 5/325 Tab*) 1 tab PO Q4H PRN PRN Reason: PAIN Last Admin: 07/02/17 10:45 Dose: 1 tab Potassium Chloride (Klor Con Er Tab*) 40 meq PO DAILY WITH MEAL [facility] Last Admin: 07/02/17 09:00 Dose: 40 meq Prednisone (Deltasone Tab*) 20 mg PO DAILY [facility] Last Admin: 07/02/17 09:00 Dose: 20 mg Vital Signs - 8 hr 07/02/17 07/02/17 07/02/17 07:21 10:45 12:00 Temperature 98.2 F 98.1 F Pulse Rate 63 65 Respiratory 16 18 16 Rate Blood Pressure 117/57 110/55 (mmHg) O2 Sat by Pulse 100 99 Oximetry 07/02/17 13:40 Temperature Pulse Rate Respiratory 16 Rate Blood Pressure (mmHg) O2 Sat by Pulse Oximetry Oxygen Devices in Use Now: Nasal Cannula Appearance: 77 yo F in nAD, aAOx3 Eyes: No Scleral Icterus, PERRLA Ears/Nose/Mouth/Throat: NL Teeth, Lips, Gums, Mucous Membranes Moist Neck: NL Appearance and Movements; NL JVP, Trachea Midline Respiratory: Symmetrical Chest Expansion and Respiratory Effort, Clear to Auscultation Cardiovascular: NL Sounds; No Murmurs; No JVD, RRR Abdominal: NL Sounds; No Tenderness; No Distention Lymphatic: No Cervical Adenopathy Extremities: No Edema, No Clubbing, Cyanosis Skin: No Rash or Ulcers, No Nodules or Sclerosis Neurological: Alert and Oriented x 3, NL Muscle Strength and Tone, - - neck stiffness resolving Result Diagrams: 07/02/17 11:37 07/02/17 11:37 Microbiology and Other Data: Microbiology 06/24/17 20:30 Nasal Screen MRSA (PCR)(MICHAEL) - Final Nasal Mrsa Negative Assess/Plan/Problems-Billing Ms Hernandes is a 77 yo F who has a h/o RA and is on MTX weekly who presented to the ER with AMS and was found to have S. pneumoniae bacteremia and meningitis. - Patient Problems (1) Streptococcus pneumoniae meningitis Comment: The patient presented to the ER with altered mental status and was subsequently found to be septic secondary to S pneumoniae bacteremia and meningitis. Continue ceftriaxone 2g IV daily-day 8 Continue pain control. Solumedrol stopped on 06/27/17. She has had 4 doses of solumedrol, on 06/28/16 started on Prednisone with aim of a slow taper (2) E-coli UTI Comment: The patient's urine has grown Ecoli sensitive to ceftriaxone. (3) Rheumatoid arthritis Comment: MTX on hold and will need to be held while being treated for her meningitis. (4) Abdominal tenderness Comment: may be due to constipation.Resolved (5) DVT prophylaxis Comment: SQ heparin Status and Disposition: inpatient
[2017-07-02] MEDS: Acetaminophen TAB* 325 MG PO PRN (21:42)
[2017-07-03] MEDS: Magic M W2 Ben/Maal/Nyst/Lido* 240 ML MOUTHWASH (alt formulation) SWISH SPIT SCH ×5 (03:27→22:29)
[2017-07-03] MEDS: cefTRIAXone(*) 2 GM in NS 0.9% 100 ML* 100 ML IVPB SCH ×2 (04:33→16:51)
[2017-07-03] MEDS: Heparin VIAL(*) 5000 UNITS/ML VIAL (FIVE THOUSAND) SUBCUT SCH ×3 (06:52→22:12)
[2017-07-03] MEDS: Acetaminophen TAB* 325 MG PO PRN ×3 (07:42→22:13)
[2017-07-03] MEDS: Potassium Chlor TAB* 20 MEQ TAB.ER PO SCH (07:43)
[2017-07-03] MEDS: Lactobacillus Acidophilu (GG)* 1 CAP CAP PO SCH ×2 (07:43→22:13)
[2017-07-03] MEDS: predniSONE TAB* 20 MG PO SCH (07:43)
[2017-07-03] MEDS: Docusate CAP* 100 MG PO SCH (07:44)
--- NOTE | 2017-07-03 12:22 | PN ---
Subjective Date of Service: 07/03/17 Interval History: Pt c/o frontal headache at 6/10, dizzy when moving head. appetite good, no abd pain. diarrhea up o 12x/day Objective Active Medications: Acetaminophen (Tylenol Tab*) 650 mg PO Q4H PRN PRN Reason: FEVER/PAIN Last Admin: 07/03/17 07:42 Dose: 650 mg Heparin Sodium (Porcine) (Heparin Vial(*)) 5,000 units SUBCUT Q8HR [facility] Last Admin: 07/03/17 06:52 Dose: 5,000 units Ceftriaxone Sodium 2 gm/ (Sodium Chloride) 100 mls @ 200 mls/hr IVPB Q12H [facility] Last Admin: 07/03/17 04:33 Dose: 200 mls/hr Lactated Ringer's (Lactated Ringers 1000 Ml Bag*) 1,000 mls @ 75 mls/hr IV PER RATE [facility] Last Admin: 07/02/17 20:16 Dose: 75 mls/hr Lactobacillus Rhamnosus (Culturelle*) 1 cap PO BID [facility] Last Admin: 07/03/17 07:43 Dose: 1 cap Morphine Sulfate (Morphine Inj (Syringe)*) 1 mg IV Q4H PRN PRN Reason: PAIN Multi-Ingredient Mouthwash/Gargle (Magic M W2 Rigo/Maal/Nyst/Lido*) 5 ml SWISH SPIT QID [facility] Stop: 07/05/17 23:59 Last Admin: 07/03/17 07:45 Dose: 5 ml Oxycodone/Acetaminophen (Percocet 5/325 Tab*) 1 tab PO Q4H PRN PRN Reason: PAIN Last Admin: 07/02/17 10:45 Dose: 1 tab Potassium Chloride (Klor Con Er Tab*) 40 meq PO DAILY WITH MEAL [facility] Last Admin: 07/03/17 07:43 Dose: 40 meq Prednisone (Deltasone Tab*) 10 mg PO DAILY [facility] Last Admin: 07/03/17 07:43 Dose: 10 mg Oxygen Devices in Use Now: None Appearance: 77 yo F in nAD, aAOx3 Eyes: No Scleral Icterus, PERRLA Ears/Nose/Mouth/Throat: NL Teeth, Lips, Gums, Mucous Membranes Moist Neck: NL Appearance and Movements; NL JVP, Trachea Midline Respiratory: Symmetrical Chest Expansion and Respiratory Effort, Clear to Auscultation Cardiovascular: NL Sounds; No Murmurs; No JVD Abdominal: NL Sounds; No Tenderness; No Distention Lymphatic: No Cervical Adenopathy Extremities: No Edema, No Clubbing, Cyanosis Skin: No Rash or Ulcers, No Nodules or Sclerosis Neurological: Alert and Oriented x 3, - - neck stiffness improving Result Diagrams: 07/02/17 11:37 07/02/17 11:37 Microbiology and Other Data: Microbiology 06/24/17 20:30 Nasal Screen MRSA (PCR)(MICHALE) - Final Nasal Mrsa Negative Assess/Plan/Problems-Billing Ms Hernandes is a 77 yo F who has a h/o RA and is on MTX weekly who presented to the ER with AMS and was found to have S. pneumoniae bacteremia and meningitis. - Patient Problems (1) Streptococcus pneumoniae meningitis Comment: The patient presented to the ER with altered mental status and was subsequently found to be septic secondary to S pneumoniae bacteremia and meningitis. Continue ceftriaxone 2g IV daily-day 03/10 Continue pain control. Solumedrol stopped on 06/27/17. She has had 4 doses of solumedrol, on 06/28/16 started on Prednisone with aim of a slow taper (2) E-coli UTI Comment: The patient's urine has grown Ecoli sensitive to ceftriaxone. (3) Rheumatoid arthritis Comment: MTX on hold and will need to be held while being treated for her meningitis. (4) DVT prophylaxis Comment: SQ heparin (5) Diarrhea Comment: Antibiotic associated, C. Diff neg will start Flagyl Status and Disposition: inpatient Cont PT, family not interested in STR.
[2017-07-03] MEDS: metroNIDAZOLE TAB* 250 MG PO SCH ×2 (13:58→22:13)
[2017-07-04] MEDS: cefTRIAXone(*) 2 GM in NS 0.9% 100 ML* 100 ML IVPB SCH ×2 (04:31→17:33)
[2017-07-04] MEDS: Acetaminophen TAB* 325 MG PO PRN ×3 (05:20→16:05)
[2017-07-04] MEDS: Heparin VIAL(*) 5000 UNITS/ML VIAL (FIVE THOUSAND) SUBCUT SCH ×3 (06:31→20:42)
[2017-07-04] MEDS: Potassium Chlor TAB* 20 MEQ TAB.ER PO SCH (09:29)
[2017-07-04] MEDS: metroNIDAZOLE TAB* 250 MG PO SCH (09:29)
[2017-07-04] MEDS: predniSONE TAB* 20 MG PO SCH (09:29)
[2017-07-04] MEDS: Lactobacillus Acidophilu (GG)* 1 CAP CAP PO SCH ×2 (09:29→20:41)
[2017-07-04] MEDS: Magic M W2 Ben/Maal/Nyst/Lido* 240 ML MOUTHWASH (alt formulation) SWISH SPIT SCH ×4 (10:00→20:41)
--- NOTE | 2017-07-04 10:09 | PN ---
Progress Note - Progress Note Date of Service: 07/04/17 SOAP: Subjective: CC: headache HPI: 77 year old woman with meningitis; has been up walking around without difficulty. Neck stiffness better. Headache persists, a little worse when she is upright. Tylenol and pain medicine help. No weakness in arms or legs. No fever or rash. Has multiple loose stools per day, no abd pain. Hasn't tried imodium, probiotics haven't helped. Objective: [] Vital Signs Temp 36.8 C 07/04/17 07:37 Pulse 71 07/04/17 07:37 Resp 16 07/04/17 07:37 BP 103/44 07/04/17 07:37 Pulse Ox 99 07/04/17 07:37 Intake & Output 07/03/17 07/04/17 07/04/17 18:59 06:59 18:59 Intake Total 420 606 Balance 420 606 Intake: IV Fluids 478 NS (0.9%) 478 IVPB 128 ABX - CEFTRIAXONE 128 Oral 420 0 Other: Estimated Void Medium Small # Bowel Movements 5 1 Estimated Stool Amount Medium Small # Voids 3 1 Gen:awake, no distress HEENT:MMM, no thrush Neuro: awake and alert, answers questions appropriately; moves all extremities. Heart:RRR no murmur Lungs:CTA BL Abd:+BS NTND soft Skin: no rash MSK: no spine tenderness Microbiology 07/03/17 10:28 C. difficile DNA Amplification - Final Stool 027 Presumptive NEGATIVE Toxigenic C.diff NEGATIVE Assessment: 1. Pneumococcal meningitis and bacteremia; no peripheral stigmata IE 2. Rheumatoid arthritis 3. headache, combination of infection and may be a component of post dural puncture headache 4. diarrhea, abx associated Plan: 1. continue ceftriaxone 2 gm IV Q12hrs day 04/09 2. anti-inlammatories as able 3. Trans thoracic echo (ordered) 4. imodium prn
[2017-07-04] MEDS: Loperamide CAP* 2 MG PO PRN (11:51)
[2017-07-04] MEDS: oxyCODONE/Acetamin 5/325 MG* TAB PO PRN (13:09)
--- NOTE | 2017-07-04 15:17 | ECHO ---
Patient: CONRADO GLOVER [facility] Rec#: [id number] : 1940 Date: 07/04/2017 Age: 77y Height: 160.02 cm / 63.0 in Weight: 44 kg / 97.0 lbs Sex: F BSA: 1.42 Room#: 405 Admit Date#: 06/24/2017 Type: Inpatient Referring: Faraz Fernandez MD Reading: Surjit Amaya MD Novelty Maker: Cynthia Gonzalez,RDCS,RDMS CC: Rosy Arora Transthoracic Echocardiogram Indication: Bacteremia BP: 103/44 HR: 72 Rhythm: NSR Findings History: Meningitis, smoker Technical Comments: The study is technically limited due to patient body habitus. Left Ventricle: The left ventricular chamber size is normal. There is no left ventricular hypertrophy. Global left ventricular wall motion and contractility are within normal limits. There is normal left ventricular systolic function. The estimated ejection fraction is 55-60%. There is no consistent Doppler evidence of clinically significant diastolic dysfunction. Left Atrium: The left atrium is slightly dilated. Right Ventricle: The right ventricular chamber size and systolic function are within normal limits. Right Atrium: The right atrial cavity size is normal. Aortic Valve: The aortic valve leaflets are mildly thickened. There is no evidence of aortic regurgitation. There is no evidence of aortic stenosis. Mitral Valve: There is mitral annular calcification. The mitral valve leaflets are mildly thickened. There is no evidence of mitral regurgitation. There is no evidence of mitral stenosis. Tricuspid Valve: The tricuspid valve leaflets are mildly thickened. There is trace tricuspid regurgitation. Unable to estimate the right ventricular systolic pressure. Pulmonic Valve: The pulmonic valve structure is not well visualized. Pericardium: There is no significant pericardial effusion. Aorta: The aorta is not well visualized. Pulmonary Artery: The main pulmonary artery is not well visualized. Venous: The inferior vena cava appears normal in size. There is a greater than 50% respiratory change in the inferior vena cava dimension. Summary: There was not any prior study for comparison. Conclusions Global left ventricular wall motion and contractility are within normal limits. There is normal left ventricular systolic function. The estimated ejection fraction is 55-60%. The right ventricular chamber size and systolic function are within normal limits. There is no evidence of aortic stenosis. There is no evidence of aortic regurgitation. The mitral valve leaflets are mildly thickened. There is no evidence of mitral regurgitation. There is trace tricuspid regurgitation. Unable to estimate the right ventricular systolic pressure. The pulmonic valve structure is not well visualized. There is no significant pericardial effusion. No obvious abnormalities to mitral and tricuspid valves Aortic valve no full visualized. but normal function Measurements Name Value Normal Range RVIDd (AP) 2D 2.5 cm (0.9 - 2.6) RVDdMajor (2D) 2.5 cm (2.2 - 4.4) RAd ISD 4CH 3 cm (3.4 - 4.9) RA (A4C)W 2.9 cm (2.9 - 4.6) IVSd (2D) 0.7 cm (0.6 - 1) LVPWd (2D) 0.9 cm (0.6 - 1) LVIDd (2D) 3.3 cm (3.6 - 5.4) LVIDs (2D) 2.5 cm - LV FS (2D) 23 % (25 - 45) LA dimension (AP) 2D 4.5 cm (2.3 - 3.8) Name Value Normal Range MV E-wave Vmax 0.8 m/sec - MV deceleration time 181 msec - MV A-wave Vmax 0.6 m/sec - MV E:A ratio 1.2 ratio - LV septal e' Vmax 0.07 m/sec - LV lateral e' Vmax 0.07 m/sec - LV E:e' septal ratio 11.4 ratio - LV E:e' lateral ratio 11.4 ratio - Name Value Normal Range AV Vmax 1.1 m/sec - AV VTI 24.3 cm - AV peak gradient 5 mmHg - AV mean gradient 2.8 mmHg - LVOT Vmax 0.8 m/sec - LVOT VTI 17 cm - LVOT peak gradient 2.6 mmHg - LVOT mean gradient 1.1 mmHg - RITA Vmax 0.4 m/sec - Name Value Normal Range RAP 8 mmHg - IVC diameter 1.5 cm -
--- NOTE | 2017-07-04 19:44 | PN ---
Subjective Date of Service: 07/04/17 Interval History: Pt is feeling ok. She does c/o headache that is worse in the AM. She states the headache is also worse when upright. She has had 5 loose BMs already today. Objective Active Medications: Acetaminophen (Tylenol Tab*) 650 mg PO Q4H PRN PRN Reason: FEVER/PAIN Last Admin: 07/04/17 16:05 Dose: 650 mg Heparin Sodium (Porcine) (Heparin Vial(*)) 5,000 units SUBCUT Q8HR [facility] Last Admin: 07/04/17 13:10 Dose: 5,000 units Ceftriaxone Sodium 2 gm/ (Sodium Chloride) 100 mls @ 200 mls/hr IVPB Q12H [facility] Last Admin: 07/04/17 17:33 Dose: 200 mls/hr Lactated Ringer's (Lactated Ringers 1000 Ml Bag*) 1,000 mls @ 75 mls/hr IV PER RATE [facility] Last Admin: 07/04/17 16:06 Dose: 75 mls/hr Lactobacillus Rhamnosus (Culturelle*) 1 cap PO BID [facility] Last Admin: 07/04/17 09:29 Dose: 1 cap Loperamide HCl (Imodium Cap*) 2 mg PO DAILY PRN PRN Reason: DIARRHEA Last Admin: 07/04/17 11:51 Dose: 2 mg Morphine Sulfate (Morphine Inj (Syringe)*) 1 mg IV Q4H PRN PRN Reason: PAIN Multi-Ingredient Mouthwash/Gargle (Magic M W2 Rigo/Maal/Nyst/Lido*) 5 ml SWISH SPIT QID [facility] Stop: 07/05/17 23:59 Last Admin: 07/04/17 18:35 Dose: 5 ml Oxycodone/Acetaminophen (Percocet 5/325 Tab*) 1 tab PO Q4H PRN PRN Reason: PAIN Last Admin: 07/04/17 13:09 Dose: 1 tab Potassium Chloride (Klor Con Er Tab*) 40 meq PO DAILY WITH MEAL [facility] Last Admin: 07/04/17 09:29 Dose: 40 meq Prednisone (Deltasone Tab*) 10 mg PO DAILY [facility] Last Admin: 07/04/17 09:29 Dose: 10 mg Vital Signs - 8 hr 07/04/17 07/04/17 07/04/17 11:38 11:51 13:09 Temperature 98.0 F Pulse Rate 78 Respiratory 16 18 18 Rate Blood Pressure 111/50 (mmHg) O2 Sat by Pulse 99 Oximetry Oxygen Devices in Use Now: None Appearance: Elderly female sitting up in bed, NAD Eyes: No Scleral Icterus Ears/Nose/Mouth/Throat: Mucous Membranes Moist Respiratory: Symmetrical Chest Expansion and Respiratory Effort, Clear to Auscultation Cardiovascular: NL Sounds; No Murmurs; No JVD, RRR, No Edema Abdominal: NL Sounds; No Tenderness; No Distention Extremities: No Clubbing, Cyanosis Skin: No Rash or Ulcers, No Nodules or Sclerosis, - - small ulceration on upper lip Neurological: Alert and Oriented x 3 Result Diagrams: 07/02/17 11:37 07/02/17 11:37 Microbiology and Other Data: Microbiology 06/24/17 20:30 Nasal Screen MRSA (PCR)(MICHAEL) - Final Nasal Mrsa Negative Assess/Plan/Problems-Billing Ms Hernandes is a 77 yo F who has a h/o RA and is on MTX weekly who presented to the ER with AMS and was found to have S. pneumoniae bacteremia and meningitis. - Patient Problems (1) Streptococcus pneumoniae meningitis Current Visit: Yes Status: Acute Code(s): G00.1 - PNEUMOCOCCAL MENINGITIS SNOMED Code(s): 44215841 Comment: Today is D#10/14 of ceftriaxone for pneumococcal meningitis. I am concerned that the patient needs STR but the patient's family has been against this. Continue prednisone slow taper. (2) E-coli UTI Current Visit: Yes Status: Acute Code(s): N39.0 - URINARY TRACT INFECTION, SITE NOT SPECIFIED; B96.20 - UNSP ESCHERICHIA COLI THE CAUSE OF DISEASES CLASSD [facility] SNOMED Code(s): 549694636 Comment: The patient's urine has grown Ecoli sensitive to ceftriaxone. Today is D#9 of therapy. (3) Rheumatoid arthritis Current Visit: Yes Status: Acute Code(s): M06.9 - RHEUMATOID ARTHRITIS, UNSPECIFIED SNOMED Code(s): 89464403 Comment: MTX on hold and will need to be held while being treated for her meningitis. (4) DVT prophylaxis Current Visit: Yes Status: Acute Code(s): NVL3805 - SNOMED Code(s): 933130184 Comment: SQ heparin (5) Full code status Current Visit: Yes Status: Acute Code(s): Z78.9 - OTHER SPECIFIED HEALTH STATUS SNOMED Code(s): 853595543 Status and Disposition: inpatient Cont PT, family not interested in STR.
[2017-07-05] MEDS ORDERED: NS 0.9% 1000 ML* 1,000 ML IV ONE (03:40)
[2017-07-05] MEDS: cefTRIAXone(*) 2 GM in NS 0.9% 100 ML* 100 ML IVPB SCH (04:38)
[2017-07-05] MEDS: Heparin VIAL(*) 5000 UNITS/ML VIAL (FIVE THOUSAND) SUBCUT SCH (04:38)
[2017-07-05] MEDS: Potassium Chlor TAB* 20 MEQ TAB.ER PO SCH (08:30)
[2017-07-05] MEDS: predniSONE TAB* 20 MG PO SCH (08:32)
[2017-07-05] MEDS: Magic M W2 Ben/Maal/Nyst/Lido* 240 ML MOUTHWASH (alt formulation) SWISH SPIT SCH ×2 (08:32→12:52)
[2017-07-05] MEDS: Lactobacillus Acidophilu (GG)* 1 CAP CAP PO SCH (08:41)
[2017-07-05] MEDS: oxyCODONE/Acetamin 5/325 MG* TAB PO PRN (08:41)
[2017-07-05] MEDS: Loperamide CAP* 2 MG PO PRN (08:41)
[2017-07-05 10:09] VITALS: BP 118/36
--- NOTE | 2017-07-05 11:42 | ED ---
Jeff Bradshaw Angela, scribed for Nate Epperson MD on 06/24/17 at 1118 . Neurological HPI - HPI Summary HPI Summary: MANUEL OLSON OVERHEARD ETA 10 minutes at 10:48 This pt is a 77 y/o female presenting to [facility] via EMS for slurred speech. Per EMS, pt had nausea and a headache, so she got up to go to the bathroom approximately 1-2 hours [employer]. Friend spoke with the pt yesterday and was well, only reporting left arm pain. Pt notes she got into bed last night and this morning she fell as she was going to the bathroom. Friend reports that upon arrival to pt's house, the pt was on the floor and was alert. Friend states the pt said she thought she fell yesterday. Pt c/o cough, headache, diarrhea, and neck pain. Denies vomiting. Per EMS glucose is 219. Pt's temporal temp is 102.1 in the ED. PMHx includes RA. Pt reports she is still on methotrexate. - History of Current Complaint Stated Complaint: MANUEL GUILLEN Time Seen by Provider: 06/24/17 11:01 Hx Obtained From: Patient Onset/Duration: Started hours ago, Still Present Timing: Constant Pain Intensity: 0 Character: Impaired Speech - slurred speech, Confusion Syncope Context: Unwitnessed Aggravating: Nothing Alleviating: Nothing Associated Signs and Symptoms: Positive: Headache, Confusion, Pain - neck pain, Nausea/Vomiting - nausea, Diarrhea - Allergy/Home Medications Allergies/Adverse Reactions: Allergies Allergy/AdvReac Type Severity Reaction Status Date / Time No Known Allergies Allergy Verified 04/11/13 09:44 Home Medications: Home Medications Folic Acid TAB* [Folvite TAB*] 2 mg PO DAILY 06/24/17 [History Confirmed ] Hydroxychloroquine TAB* [Plaquenil TAB*] 200 mg PO BID 06/24/17 [History Confirmed 06/24/17] Methotrexate TAB* 15 mg PO WEEKLY 06/24/17 [History Confirmed 06/24/17] Adalimumab (NF) 1 syringe SUBCUT SEE INSTRUCTIONS 06/28/17 [History Confirmed ] PMH/Surg Hx/FS Hx/Imm Hx Endocrine/Hematology History: Denies: Hx Diabetes Cardiovascular History: Denies: Hx Hypertension GI History: Reports: Hx Obstructive Bowel Musculoskeletal History: Reports: Hx Rheumatoid Arthritis - Surgical History Surgery Procedure, Year, and Place: appendectomy, gall bladder surgery, hysterectomy Infectious Disease History: No Infectious Disease History: Denies: Traveled Outside the [place] in Last 30 Days - Family History Known Family History: Positive: Cardiac Disease - Mother: angina, Diabetes - maternal grandmother, Other - Father: liver CA. - Social History Alcohol Use: None Substance Use Type: Reports: None Smoking Status (MU): Light Every Day Tobacco Smoker Review of Systems Negative: Fever, Chills Negative: Erythema Negative: Sore Throat Negative: Chest Pain Positive: Cough. Negative: Shortness Of Breath Positive: Diarrhea, Nausea. Negative: Abdominal Pain, Vomiting Negative: dysuria, hematuria Musculoskeletal: Other - neck pain Negative: Myalgia, Edema Negative: Rash Neurological: Other - POS: slurred speech. NEG: dizziness Positive: Headache All Other Systems Reviewed And Are Negative: Yes Physical Exam - Summary Physical Exam Summary: Constitutional: Well-developed, Well-nourished, Alert, Ill-looking. Skin: Warm, Dry HENT: Normocephalic; Atraumatic. Dry oral mucosa. Eyes: Conjunctiva normal Neck: Musculoskeletal ROM normal neck. (-) JVD, (-) Stridor, (-) Tracheal deviation Cardio: Rhythm regular, rate normal, Heart sounds normal; Intact distal pulses; The pedal pulses are 2+ and symmetric. Radial pulses are 2+ and symmetric. (-) Murmur Pulmonary/Chest wall: Effort normal. (-) Respiratory distress, (-) Wheezes, (-) Rales Abd: Soft, (-) Tenderness, (-) Distension, (-) Guarding, (-) Rebound Musculoskeletal: (-) Edema Lymph: (-) Cervical adenopathy Neuro: Alert, Oriented x3 Psych: Mood and affect Normal Triage Information Reviewed: Yes Vital Signs On Initial Exam: Initial Vitals Temp Pulse Resp BP Pulse Ox 102.1 F 93 29 120/70 98 06/24/17 11:14 06/24/17 11:14 06/24/17 11:14 06/24/17 11:14 06/24/17 11:14 Vital Signs Reviewed: Yes Diagnostics - Vital Signs Vital Signs Temp Pulse Resp BP Pulse Ox 06/24/17 11:14 102.1 F 93 29 120/70 98 - Laboratory Lab Results: Lab Results 06/24/17 06/24/17 06/24/17 Range/Units 11:50 11:50 11:50 WBC 16.0 H (3.5-10.8) 10^3/ul RBC 3.50 L (4.0-5.4) 10^6/ul Hgb 12.4 (12.0-16.0) g/dl Hct 37 (35-47) % MCV 105 H (80-97) fL MCH 35 H (27-31) pg MCHC 34 (31-36) g/dl RDW 14 (10.5-15) % Plt Count 192 (150-450) 10^3/ul MPV 8 (7.4-10.4) um3 Neut % (Auto) 92.6 H (38-83) % Lymph % (Auto) 2.0 L (25-47) % Wilson % (Auto) 3.9 (1-9) % Eos % (Auto) 0 (0-6) % Baso % (Auto) 1.5 (0-2) % Absolute Neuts (auto) 14.8 H (1.5-7.7) 10^3/ul Absolute Lymphs (auto) 0.3 L (1.0-4.8) 10^3/ul Absolute Monos (auto) 0.6 (0-0.8) 10^3/ul Absolute Eos (auto) 0 (0-0.6) 10^3/ul Absolute Basos (auto) 0.2 (0-0.2) 10^3/ul Absolute Nucleated RBC 0 10^3/ul Immature Gran % 7 (0-9) % Neutrophils % 89 H (38-83) % Band Neutrophils % 7 (0-8) % Lymphocytes % 1 L (25-47) % Monocytes % 3 (0-13) % Nucleated RBC % 0 Normal RBC Morphology Not Reportable Macrocytosis 1+ INR (Anticoag Therapy) 1.02 (0.77-1.02) APTT 28.0 (26.0-36.3) seconds VBG pH (7.33-7.43) VBG pCO2 (41-51) mmHg VBG pO2 (35-45) mmHg VBG HCO3 (24-28) mmol/L VBG O2 Saturation (70-80) % VBG Base Excess (0-4) Sodium 132 L (133-145) mmol/L Potassium 3.9 (3.5-5.0) mmol/L Chloride 100 L (101-111) mmol/L Carbon Dioxide 23 (22-32) mmol/L Anion Gap 9 (2-11) mmol/L BUN 15 (6-24) mg/dL Creatinine 0.67 (0.51-0.95) mg/dL Est GFR ( Amer) 109.5 (>60) Est GFR (Non-Af Amer) 85.1 (>60) BUN/Creatinine Ratio 22.4 H (8-20) Glucose 144 H (70-100) mg/dL Lactic Acid (0.5-2.0) mmol/L Calcium 7.9 L (8.6-10.3) mg/dL Total Bilirubin 0.50 (0.2-1.0) mg/dL AST 59 H (13-39) U/L ALT 40 (7-52) U/L Alkaline Phosphatase 98 (34-104) U/L Total Creatine Kinase 279 H (10-223) U/L Troponin I 0.02 (<0.04) ng/mL Total Protein 6.4 (6.4-8.9) g/dL Albumin 3.2 (3.2-5.2) g/dL Globulin 3.2 (2-4) g/dL Albumin/Globulin Ratio 1.0 (1-3) Triglycerides 120 mg/dL Cholesterol 128 mg/dL LDL Cholesterol 60 mg/dL HDL Cholesterol 44.2 mg/dL Urine Color Urine Appearance Urine pH (5-9) Ur Specific Greenfield (1.010-1.030) Urine Protein (Negative) Urine Ketones (Negative) Urine Blood (Negative) Urine Nitrate (Negative) Urine Bilirubin (Negative) Urine Urobilinogen (Negative) Ur Leukocyte Esterase (Negative) Urine WBC (Auto) (Absent) Urine RBC (Auto) (Absent) Urine Bacteria (Absent) Urine Glucose (Negative) Urine Ascorbic Acid (Negative) Fluid Source Fluid Volume mL Fluid Color Fluid Appearance Fluid WBC /mcL Fluid RBC /mcL Fluid Tot Cell Count Fluid Neutrophils % Fluid Cell Count Rvw By CSF Cell Count Tube # CSF Glucose (40-70) mg/dL CSF Total Protein (15-45) mg/dL Blood Type Antibody Screen 12/29/17 12/29/17 12/29/17 Range/Units 11:50 11:50 12:56 WBC (3.5-10.8) 10^3/ul RBC (4.0-5.4) 10^6/ul Hgb (12.0-16.0) g/dl Hct (35-47) % MCV (80-97) fL MCH (27-31) pg MCHC (31-36) g/dl RDW (10.5-15) % Plt Count (150-450) 10^3/ul MPV (7.4-10.4) um3 Neut % (Auto) (38-83) % Lymph % (Auto) (25-47) % Wilson % (Auto) (1-9) % Eos % (Auto) (0-6) % Baso % (Auto) (0-2) % Absolute Neuts (auto) (1.5-7.7) 10^3/ul Absolute Lymphs (auto) (1.0-4.8) 10^3/ul Absolute Monos (auto) (0-0.8) 10^3/ul Absolute Eos (auto) (0-0.6) 10^3/ul Absolute Basos (auto) (0-0.2) 10^3/ul Absolute Nucleated RBC 10^3/ul Immature Gran % (0-9) % Neutrophils % (38-83) % Band Neutrophils % (0-8) % Lymphocytes % (25-47) % Monocytes % (0-13) % Nucleated RBC % Normal RBC Morphology Macrocytosis INR (Anticoag Therapy) (0.77-1.02) APTT (26.0-36.3) seconds VBG pH 7.30 L (7.33-7.43) VBG pCO2 49 (41-51) mmHg VBG pO2 20 L (35-45) mmHg VBG HCO3 21.3 L (24-28) mmol/L VBG O2 Saturation 37.5 L (70-80) % VBG Base Excess -2.7 L (0-4) Sodium (133-145) mmol/L Potassium (3.5-5.0) mmol/L Chloride (101-111) mmol/L Carbon Dioxide (22-32) mmol/L Anion Gap (2-11) mmol/L BUN (6-24) mg/dL Creatinine (0.51-0.95) mg/dL Est GFR ( Amer) (>60) Est GFR (Non-Af Amer) (>60) BUN/Creatinine Ratio (8-20) Glucose (70-100) mg/dL Lactic Acid 1.6 (0.5-2.0) mmol/L Calcium (8.6-10.3) mg/dL Total Bilirubin (0.2-1.0) mg/dL AST (13-39) U/L ALT (7-52) U/L Alkaline Phosphatase (34-104) U/L Total Creatine Kinase (10-223) U/L Troponin I (<0.04) ng/mL Total Protein (6.4-8.9) g/dL Albumin (3.2-5.2) g/dL Globulin (2-4) g/dL Albumin/Globulin Ratio (1-3) Triglycerides mg/dL Cholesterol mg/dL LDL Cholesterol mg/dL HDL Cholesterol mg/dL Urine Color Urine Appearance Urine pH (5-9) Ur Specific Green[place] (1.010-1.030) Urine Protein (Negative) Urine Ketones (Negative) Urine Blood (Negative) Urine Nitrate (Negative) Urine Bilirubin (Negative) Urine Urobilinogen (Negative) Ur Leukocyte Esterase (Negative) Urine WBC (Auto) (Absent) Urine RBC (Auto) (Absent) Urine Bacteria (Absent) Urine Glucose (Negative) Urine Ascorbic Acid (Negative) Fluid Source Fluid Volume mL Fluid Color Fluid Appearance Fluid WBC /mcL Fluid RBC /mcL Fluid Tot Cell Count Fluid Neutrophils % Fluid Cell Count Rvw By CSF Cell Count Tube # CSF Glucose (40-70) mg/dL CSF Total Protein (15-45) mg/dL Blood Type O Positive Antibody Screen Negative 06/24/17 06/24/17 06/24/17 Range/Units 13:35 13:35 14:41 WBC (3.5-10.8) 10^3/ul RBC (4.0-5.4) 10^6/ul Hgb (12.0-16.0) g/dl Hct (35-47) % MCV (80-97) fL MCH (27-31) pg MCHC (31-36) g/dl RDW (10.5-15) % Plt Count (150-450) 10^3/ul MPV (7.4-10.4) um3 Neut % (Auto) (38-83) % Lymph % (Auto) (25-47) % Wilson % (Auto) (1-9) % Eos % (Auto) (0-6) % Baso % (Auto) (0-2) % Absolute Neuts (auto) (1.5-7.7) 10^3/ul Absolute Lymphs (auto) (1.0-4.8) 10^3/ul Absolute Monos (auto) (0-0.8) 10^3/ul Absolute Eos (auto) (0-0.6) 10^3/ul Absolute Basos (auto) (0-0.2) 10^3/ul Absolute Nucleated RBC 10^3/ul Immature Gran % (0-9) % Neutrophils % (38-83) % Band Neutrophils % (0-8) % Lymphocytes % (25-47) % Monocytes % (0-13) % Nucleated RBC % Normal RBC Morphology Macrocytosis INR (Anticoag Therapy) (0.77-1.02) APTT (26.0-36.3) seconds VBG pH (7.33-7.43) VBG pCO2 (41-51) mmHg VBG pO2 (35-45) mmHg VBG HCO3 (24-28) mmol/L VBG O2 Saturation (70-80) % VBG Base Excess (0-4) Sodium (133-145) mmol/L Potassium (3.5-5.0) mmol/L Chloride (101-111) mmol/L Carbon Dioxide (22-32) mmol/L Anion Gap (2-11) mmol/L BUN (6-24) mg/dL Creatinine (0.51-0.95) mg/dL Est GFR ( Amer) (>60) Est GFR (Non-Af Amer) (>60) BUN/Creatinine Ratio (8-20) Glucose (70-100) mg/dL Lactic Acid (0.5-2.0) mmol/L Calcium (8.6-10.3) mg/dL Total Bilirubin (0.2-1.0) mg/dL AST (13-39) U/L ALT (7-52) U/L Alkaline Phosphatase (34-104) U/L Total Creatine Kinase (10-223) U/L Troponin I (<0.04) ng/mL Total Protein (6.4-8.9) g/dL Albumin (3.2-5.2) g/dL Globulin (2-4) g/dL Albumin/Globulin Ratio (1-3) Triglycerides mg/dL Cholesterol mg/dL LDL Cholesterol mg/dL HDL Cholesterol mg/dL Urine Color Yellow Urine Appearance Cloudy Urine pH 6.0 (5-9) Ur Specific [place] 1.017 (1.010-1.030) Urine Protein 1+(30 mg/dl) H (Negative) Urine Ketones Trace H (Negative) Urine Blood 2+ H (Negative) Urine Nitrate Negative (Negative) Urine Bilirubin Negative (Negative) Urine Urobilinogen Negative (Negative) Ur Leukocyte Esterase 1+ H (Negative) Urine WBC (Auto) 3+(>20/hpf) H (Absent) Urine RBC (Auto) 3+(>10/hpf) H (Absent) Urine Bacteria 1+ H (Absent) Urine Glucose 1+(50 mg/dl) H (Negative) Urine Ascorbic Acid * H (Negative) Fluid Source Cerebral spinal Fluid Volume 1 mL Fluid Color Colorless Fluid Appearance Cloudy Fluid WBC 2800 H* /mcL Fluid RBC 9 /mcL Fluid Tot Cell Count 100 Fluid Neutrophils 100 % Fluid Cell Count Rvw By CSF Cell Count Tube # 4 CSF Glucose < 10 L* (40-70) mg/dL CSF Total Protein 420 H (15-45) mg/dL Blood Type Antibody Screen Result Diagrams: 07/02/17 11:37 07/02/17 11:37 Lab Statement: Any lab studies that have been ordered have been reviewed, and results considered in the medical decision making process. - Radiology chest XR Xray Interpretation: Positive (See Comments) - IMPRESSION: Mild interstitial prominence with suspected interstitial congestion. Dr. Epperson has reviewed this radiology report. Radiology Interpretation Completed By: Radiologist - CT Brain CT CT Interpretation: No Acute Changes - IMPRESSION: Evidence of mild microvascular disease without acute intracranial hemorrhage or other acute intracranial abnormality. Dr. Epperson has reviewed this radiology report. CT Interpretation Completed By: Radiologist - EKG 11:16 Cardiac Rate: NL EKG Rhythm: Sinus Rhythm - at 92 bpm EKG Interpretation: No STEMI. Course/Dx - Course Course Of Treatment: CODE OLSON OVERHEARD ETA 10 minutes at 10:48. This pt is a 77 y/o female presenting to [facility] via EMS for slurred speech. Per EMS, pt had nausea and a headache, so she got up to go to the bathroom approximately 1-2 hours [employer]. Friend spoke with the pt yesterday and was well, only reporting left arm pain. Pt notes she got into bed last night and this morning she fell as she was going to the bathroom. Friend reports that upon arrival to pt's house, the pt was on the floor and was alert. Friend states the pt said she thought she fell yesterday. Pt c/o cough, headache, diarrhea, and neck pain. Denies vomiting. EKG shows NSR at [address] brain reveals evidence of mild microvascular disease without acute intracranial hemorrhage or other acute intracranial abnormality. Chest XR shows mild interstitial prominence with suspected interstitial congestion. A lumbar puncture was performed without any complications. Consent was obtained from the pt's son. I explained the risks of headache, infection and bleeding. Please see lumbar puncture note, where 4 ml of cloudy fluid was obtained. I discussed pt care with Dr. Willson, hospitalist , who has agreed to admit the pt. CSF shows WBC of 2800, glucose of <10 and total protein of 420. - Diagnoses Provider Diagnoses: Streptococcus pneumoniae meningitis During the Visit The Following Alert/Code Occurred: Code Olson - Overheard ETA 10 minutes at 10:48 - Physician Notifications Discussed Care Of Patient With: Linda Willson Time Discussed With Above Provider: 13:30 Instructed by Provider To: Other - I discussed pt care with Dr. Willson, who has agreed to admit the pt. - Critical Care Time Critical Care Time: 30-74 min Discharge - Discharge Plan Condition: Stable Disposition: ADMITTED TO [facility] Procedure Note Lumbar Puncture - Lumbar Puncture Informed Conset (Refer to Hospital Form): Yes Position: Lateral Decubitus - on L3, L4 Aseptic Technique: Lidocaine - 1% - 3 ml Spinal Needle Used: 22 Gauge - 3.5 inch Attempts: Atraumatic Number of Attempts: 1 - on L3, L4 Results: WNL Additional Comments: cloudy fluid obtained - 4 ml The documentation as recorded by the Jeff gonzalez Angela accurately reflects the service I personally performed and the decisions made by me, Nate Epperson MD.
[2017-07-05] MEDS: Acetaminophen TAB* 325 MG PO PRN (12:52)
--- NOTE | 2017-07-05 13:24 | PN ---
Subjective Date of Service: 07/05/17 Interval History: Pt is feeling ok but has a headache currently. She has agreed to go to [facility] today. Objective Active Medications: Acetaminophen (Tylenol Tab*) 650 mg PO Q4H PRN PRN Reason: FEVER/PAIN Last Admin: 07/05/17 12:52 Dose: 650 mg Heparin Sodium (Porcine) (Heparin Vial(*)) 5,000 units SUBCUT Q8HR [facility] Last Admin: 07/05/17 04:38 Dose: 5,000 units Ceftriaxone Sodium 2 gm/ (Sodium Chloride) 100 mls @ 200 mls/hr IVPB Q12H [facility] Last Admin: 07/05/17 04:38 Dose: 200 mls/hr Lactated Ringer's (Lactated Ringers 1000 Ml Bag*) 1,000 mls @ 75 mls/hr IV PER RATE [facility] Last Admin: 07/05/17 04:38 Dose: 75 mls/hr Lactobacillus Rhamnosus (Culturelle*) 1 cap PO BID [facility] Last Admin: 07/05/17 08:41 Dose: 1 cap Loperamide HCl (Imodium Cap*) 2 mg PO DAILY PRN PRN Reason: DIARRHEA Last Admin: 07/05/17 08:41 Dose: 2 mg Morphine Sulfate (Morphine Inj (Syringe)*) 1 mg IV Q4H PRN PRN Reason: PAIN Multi-Ingredient Mouthwash/Gargle (Magic M W2 Rigo/Maal/Nyst/Lido*) 5 ml SWISH SPIT QID [facility] Stop: 07/05/17 23:59 Last Admin: 07/05/17 12:52 Dose: 5 ml Oxycodone/Acetaminophen (Percocet 5/325 Tab*) 1 tab PO Q4H PRN PRN Reason: PAIN Last Admin: 07/05/17 08:41 Dose: 1 tab Potassium Chloride (Klor Con Er Tab*) 40 meq PO DAILY WITH MEAL [facility] Last Admin: 07/05/17 08:30 Dose: 40 meq Prednisone (Deltasone Tab*) 10 mg PO DAILY [facility] Last Admin: 07/05/17 08:32 Dose: 10 mg Vital Signs - 8 hr 07/05/17 07/05/17 07/05/17 07:31 08:00 08:41 Temperature 98.0 F Pulse Rate 69 Respiratory 16 16 18 Rate Blood Pressure 96/43 (mmHg) O2 Sat by Pulse 99 99 Oximetry 07/05/17 07/05/17 07/05/17 09:30 11:00 13:02 Temperature Pulse Rate Respiratory 18 16 Rate Blood Pressure 118/36 (mmHg) O2 Sat by Pulse Oximetry Oxygen Devices in Use Now: None Appearance: Elderly thin female sitting up in a chair, NAD Eyes: No Scleral Icterus Ears/Nose/Mouth/Throat: Mucous Membranes Moist Respiratory: Symmetrical Chest Expansion and Respiratory Effort, Clear to Auscultation Cardiovascular: NL Sounds; No Murmurs; No JVD, RRR, No Edema Abdominal: NL Sounds; No Tenderness; No Distention Extremities: No Clubbing, Cyanosis Skin: No Rash or Ulcers, No Nodules or Sclerosis Neurological: Alert and Oriented x 3 Result Diagrams: 07/02/17 11:37 07/02/17 11:37 Additional Lab and Data: Lab Results 06/24/17 06/24/17 06/24/17 Range/Units 11:50 11:50 11:50 WBC 16.0 H (3.5-10.8) 10^3/ul RBC 3.50 L (4.0-5.4) 10^6/ul Hgb 12.4 (12.0-16.0) g/dl Hct 37 (35-47) % MCV 105 H (80-97) fL MCH 35 H (27-31) pg MCHC 34 (31-36) g/dl RDW 14 (10.5-15) % Plt Count 192 (150-450) 10^3/ul MPV 8 (7.4-10.4) um3 Neut % (Auto) 92.6 H (38-83) % Lymph % (Auto) 2.0 L (25-47) % [place] % (Auto) 3.9 (1-9) % Eos % (Auto) 0 (0-6) % Baso % (Auto) 1.5 (0-2) % Absolute Neuts (auto) 14.8 H (1.5-7.7) 10^3/ul Absolute Lymphs (auto) 0.3 L (1.0-4.8) 10^3/ul Absolute Monos (auto) 0.6 (0-0.8) 10^3/ul Absolute Eos (auto) 0 (0-0.6) 10^3/ul Absolute Basos (auto) 0.2 (0-0.2) 10^3/ul Absolute Nucleated RBC 0 10^3/ul Immature Gran % 7 (0-9) % Neutrophils % 89 H (38-83) % Band Neutrophils % 7 (0-8) % Lymphocytes % 1 L (25-47) % Monocytes % 3 (0-13) % Nucleated RBC % 0 Normal RBC Morphology Not Reportable Macrocytosis 1+ INR (Anticoag Therapy) 1.02 (0.77-1.02) APTT 28.0 (26.0-36.3) seconds VBG pH (7.33-7.43) VBG pCO2 (41-51) mmHg VBG pO2 (35-45) mmHg VBG HCO3 (24-28) mmol/L VBG O2 Saturation (70-80) % VBG Base Excess (0-4) Sodium 132 L (133-145) mmol/L Potassium 3.9 (3.5-5.0) mmol/L Chloride 100 L (101-111) mmol/L Carbon Dioxide 23 (22-32) mmol/L Anion Gap 9 (2-11) mmol/L BUN 15 (6-24) mg/dL Creatinine 0.67 (0.51-0.95) mg/dL Est GFR ( Amer) 109.5 (>60) Est GFR (Non-Af Amer) 85.1 (>60) BUN/Creatinine Ratio 22.4 H (8-20) Glucose 144 H (70-100) mg/dL Lactic Acid (0.5-2.0) mmol/L Calcium 7.9 L (8.6-10.3) mg/dL Total Bilirubin 0.50 (0.2-1.0) mg/dL AST 59 H (13-39) U/L ALT 40 (7-52) U/L Alkaline Phosphatase 98 (34-104) U/L Total Creatine Kinase 279 H (10-223) U/L Troponin I 0.02 (<0.04) ng/mL Total Protein 6.4 (6.4-8.9) g/dL Albumin 3.2 (3.2-5.2) g/dL Globulin 3.2 (2-4) g/dL Albumin/Globulin Ratio 1.0 (1-3) Triglycerides 120 mg/dL Cholesterol 128 mg/dL LDL Cholesterol 60 mg/dL HDL Cholesterol 44.2 mg/dL Urine Color Urine Appearance Urine pH (5-9) Ur Specific [place] (1.010-1.030) Urine Protein (Negative) Urine Ketones (Negative) Urine Blood (Negative) Urine Nitrate (Negative) Urine Bilirubin (Negative) Urine Urobilinogen (Negative) Ur Leukocyte Esterase (Negative) Urine WBC (Auto) (Absent) Urine RBC (Auto) (Absent) Urine Bacteria (Absent) Urine Glucose (Negative) Urine Ascorbic Acid (Negative) Fluid Source Fluid Volume mL Fluid Color Fluid Appearance Fluid WBC /mcL Fluid RBC /mcL Fluid Tot Cell Count Fluid Neutrophils % Fluid Cell Count Rvw By CSF Cell Count Tube # CSF Glucose (40-70) mg/dL CSF Total Protein (15-45) mg/dL Blood Type Antibody Screen 06/24/17 06/24/17 06/24/17 Range/Units 11:50 11:50 12:56 WBC (3.5-10.8) 10^3/ul RBC (4.0-5.4) 10^6/ul Hgb (12.0-16.0) g/dl Hct (35-47) % MCV (80-97) fL MCH (27-31) pg MCHC (31-36) g/dl RDW (10.5-15) % Plt Count (150-450) 10^3/ul MPV (7.4-10.4) um3 Neut % (Auto) (38-83) % Lymph % (Auto) (25-47) % [place]as[place] % (Auto) (1-9) % Eos % (Auto) (0-6) % Baso % (Auto) (0-2) % Absolute Neuts (auto) (1.5-7.7) 10^3/ul Absolute Lymphs (auto) (1.0-4.8) 10^3/ul Absolute Monos (auto) (0-0.8) 10^3/ul Absolute Eos (auto) (0-0.6) 10^3/ul Absolute Basos (auto) (0-0.2) 10^3/ul Absolute Nucleated RBC 10^3/ul Immature Gran % (0-9) % Neutrophils % (38-83) % Band Neutrophils % (0-8) % Lymphocytes % (25-47) % Monocytes % (0-13) % Nucleated RBC % Normal RBC Morphology Macrocytosis INR (Anticoag Therapy) (0.77-1.02) APTT (26.0-36.3) seconds VBG pH 7.30 L (7.33-7.43) VBG pCO2 49 (41-51) mmHg VBG pO2 20 L (35-45) mmHg VBG HCO3 21.3 L (24-28) mmol/L VBG O2 Saturation 37.5 L (70-80) % VBG Base Excess -2.7 L (0-4) Sodium (133-145) mmol/L Potassium (3.5-5.0) mmol/L Chloride (101-111) mmol/L Carbon Dioxide (22-32) mmol/L Anion Gap (2-11) mmol/L BUN (6-24) mg/dL Creatinine (0.51-0.95) mg/dL Est GFR ( Amer) (>60) Est GFR (Non-Af Amer) (>60) BUN/Creatinine Ratio (8-20) Glucose (70-100) mg/dL Lactic Acid 1.6 (0.5-2.0) mmol/L Calcium (8.6-10.3) mg/dL Total Bilirubin (0.2-1.0) mg/dL AST (13-39) U/L ALT (7-52) U/L Alkaline Phosphatase (34-104) U/L Total Creatine Kinase (10-223) U/L Troponin I (<0.04) ng/mL Total Protein (6.4-8.9) g/dL Albumin (3.2-5.2) g/dL Globulin (2-4) g/dL Albumin/Globulin Ratio (1-3) Triglycerides mg/dL Cholesterol mg/dL LDL Cholesterol mg/dL HDL Cholesterol mg/dL Urine Color Urine Appearance Urine pH (5-9) Ur Specific [place] (1.010-1.030) Urine Protein (Negative) Urine Ketones (Negative) Urine Blood (Negative) Urine Nitrate (Negative) Urine Bilirubin (Negative) Urine Urobilinogen (Negative) Ur Leukocyte Esterase (Negative) Urine WBC (Auto) (Absent) Urine RBC (Auto) (Absent) Urine Bacteria (Absent) Urine Glucose (Negative) Urine Ascorbic Acid (Negative) Fluid Source Fluid Volume mL Fluid Color Fluid Appearance Fluid WBC /mcL Fluid RBC /mcL Fluid Tot Cell Count Fluid Neutrophils % Fluid Cell Count Rvw By CSF Cell Count Tube # CSF Glucose (40-70) mg/dL CSF Total Protein (15-45) mg/dL Blood Type O Positive Antibody Screen Negative 06/24/17 06/24/17 06/24/17 Range/Units 13:35 13:35 14:41 WBC (3.5-10.8) 10^3/ul RBC (4.0-5.4) 10^6/ul Hgb (12.0-16.0) g/dl Hct (35-47) % MCV (80-97) fL MCH (27-31) pg MCHC (31-36) g/dl RDW (10.5-15) % Plt Count (150-450) 10^3/ul MPV (7.4-10.4) um3 Neut % (Auto) (38-83) % Lymph % (Auto) (25-47) % [place] % (Auto) (1-9) % Eos % (Auto) (0-6) % Baso % (Auto) (0-2) % Absolute Neuts (auto) (1.5-7.7) 10^3/ul Absolute Lymphs (auto) (1.0-4.8) 10^3/ul Absolute Monos (auto) (0-0.8) 10^3/ul Absolute Eos (auto) (0-0.6) 10^3/ul Absolute Basos (auto) (0-0.2) 10^3/ul Absolute Nucleated RBC 10^3/ul Immature Gran % (0-9) % Neutrophils % (38-83) % Band Neutrophils % (0-8) % Lymphocytes % (25-47) % Monocytes % (0-13) % Nucleated RBC % Normal RBC Morphology Macrocytosis INR (Anticoag Therapy) (0.77-1.02) APTT (26.0-36.3) seconds VBG pH (7.33-7.43) VBG pCO2 (41-51) mmHg VBG pO2 (35-45) mmHg VBG HCO3 (24-28) mmol/L VBG O2 Saturation (70-80) % VBG Base Excess (0-4) Sodium (133-145) mmol/L Potassium (3.5-5.0) mmol/L Chloride (101-111) mmol/L Carbon Dioxide (22-32) mmol/L Anion Gap (2-11) mmol/L BUN (6-24) mg/dL Creatinine (0.51-0.95) mg/dL Est GFR ( Amer) (>60) Est GFR (Non-Af Amer) (>60) BUN/Creatinine Ratio (8-20) Glucose (70-100) mg/dL Lactic Acid (0.5-2.0) mmol/L Calcium (8.6-10.3) mg/dL Total Bilirubin (0.2-1.0) mg/dL AST (13-39) U/L ALT (7-52) U/L Alkaline Phosphatase (34-104) U/L Total Creatine Kinase (10-223) U/L Troponin I (<0.04) ng/mL Total Protein (6.4-8.9) g/dL Albumin (3.2-5.2) g/dL Globulin (2-4) g/dL Albumin/Globulin Ratio (1-3) Triglycerides mg/dL Cholesterol mg/dL LDL Cholesterol mg/dL HDL Cholesterol mg/dL Urine Color Yellow Urine Appearance Cloudy Urine pH 6.0 (5-9) Ur Specific [place] 1.017 (1.010-1.030) Urine Protein 1+(30 mg/dl) H (Negative) Urine Ketones Trace H (Negative) Urine Blood 2+ H (Negative) Urine Nitrate Negative (Negative) Urine Bilirubin Negative (Negative) Urine Urobilinogen Negative (Negative) Ur Leukocyte Esterase 1+ H (Negative) Urine WBC (Auto) 3+(>20/hpf) H (Absent) Urine RBC (Auto) 3+(>10/hpf) H (Absent) Urine Bacteria 1+ H (Absent) Urine Glucose 1+(50 mg/dl) H (Negative) Urine Ascorbic Acid * H (Negative) Fluid Source Cerebral spinal Fluid Volume 1 mL Fluid Color Colorless Fluid Appearance Cloudy Fluid WBC 2800 H* /mcL Fluid RBC 9 /mcL Fluid Tot Cell Count 100 Fluid Neutrophils 100 % Fluid Cell Count Rvw By CSF Cell Count Tube # 4 CSF Glucose < 10 L* (40-70) mg/dL CSF Total Protein 420 H (15-45) mg/dL Blood Type Antibody Screen Microbiology and Other Data: Microbiology 06/24/17 20:30 Nasal Screen MRSA (PCR)(MICHAEL) - Final Nasal Mrsa Negative Assess/Plan/Problems-Billing Ms Hernandes is a 77 yo F who has a h/o RA and is on MTX weekly who presented to the ER with AMS and was found to have S. pneumoniae bacteremia and meningitis. - Patient Problems (1) Streptococcus pneumoniae meningitis Current Visit: Yes Status: Acute Code(s): G00.1 - PNEUMOCOCCAL MENINGITIS SNOMED Code(s): 61788660 Comment: Today is D#11/14 of ceftriaxone for pneumococcal meningitis. Continue prednisone 10mg daily. Plan is for the patient to go to [facility] today. (2) E-coli UTI Current Visit: Yes Status: Acute Code(s): N39.0 - URINARY TRACT INFECTION, SITE NOT SPECIFIED; B96.20 - UNSP ESCHERICHIA COLI THE CAUSE OF DISEASES [facility] SNOMED Code(s): 007586311 Comment: The patient's urine has grown Ecoli sensitive to ceftriaxone. Today is D#11 of therapy. (3) Rheumatoid arthritis Current Visit: Yes Status: Acute Code(s): M06.9 - RHEUMATOID ARTHRITIS, UNSPECIFIED SNOMED Code(s): 50475604 Comment: MTX on hold and will need to be held while being treated for her meningitis. (4) DVT prophylaxis Current Visit: Yes Status: Acute Code(s): XKR6701 - SNOMED Code(s): 212668262 Comment: SQ heparin (5) Full code status Current Visit: Yes Status: Acute Code(s): Z78.9 - OTHER SPECIFIED HEALTH STATUS SNOMED Code(s): 785124649 Status and Disposition: inpatient Cont PT, family not interested in STR.
--- NOTE | 2017-07-06 04:42 | DS ---
Cc: Dr. Strauss; Rosy Arora NP * DISCHARGE SUMMARY: DATE OF ADMISSION: 06/24/17 DATE OF DISCHARGE TO [facility]: 07/05/17 PRIMARY CARE PROVIDER: Dr. Strauss. GEOTHERMAL OPERATIONS MANAGER: Rosy Arora NP. PRINCIPAL DIAGNOSES: 1. Pneumococcal meningitis and bacteremia. 2. E. coli urinary tract infection. SECONDARY DIAGNOSES: 1. Rheumatoid arthritis on immunosuppressant therapy. 2. Osteoporosis. DISCHARGE MEDICATIONS: 1. Adalimumab, to be held until seen by Dr. Mccollum/Rosy Arora. 2. Methotrexate 15 mg p.o. weekly - to be held until seen by Dr. Mccollum or Rosy Arora. 3. Plaquenil 200 mg p.o. twice daily. 4. Voltaren gel apply topically p.r.n. pain. 5. Vitamin E 1000 units p.o. daily. 6. Vitamin A 10,000 units p.o. daily. 7. Prolia. 8. Protonix 40 mg p.o. daily p.r.n. indigestion. 9. Multivitamin 1 tab p.o. daily. 10. Forteo 20 mcg subcutaneous daily to be on hold until seen by PCP. 11. Folic acid 1 mg p.o. b.i.d. 12. Diclofenac sodium 75 mg p.o. twice daily. 13. Combigan 1 drop to both eyes twice daily. 14. Vitamin D 1000 units p.o. daily. 15. Calcium carbonate 1250 mg p.o. t.i.d. 16. Ascorbic acid 1000 mg p.o. daily. 17. Prednisone 10 mg p.o. daily. 18. Percocet 5/325 one tab p.o. q.4 hours p.r.n. pain. 19. Ceftriaxone 2 g IV q. 12 hours x7 doses. 20. Potassium chloride 40 mEq p.o. daily. 21. Magic mouthwash 5 ml swish and spit 4 times daily. 22. Loperamide 2 mg p.o. after each loose stool, maximum 8 tablets per day. 23. Culturelle 1 cap p.o. b.i.d. 24. Tylenol 650 mg p.o. q. 4 hours p.r.n. pain. HOSPITAL COURSE: Ms. Hernandes is a 77-year-old female who presented to the emergency room on 06/24/17 after she was found confused and down on the floor. The patient underwent a lumbar puncture in the emergency room where a purulent fluid was encountered. Very quickly the patient's CSF appeared consistent with bacterial meningitis. Her CSF ultimately grew Streptococcus pneumoniae. The patient was also bacteremic with 4/4 bottles positive for Streptococcus pneumoniae. The patient was initially started on vancomycin and ceftriaxone and when the Streptococcus pneumoniae result returned her antibiotic therapy was narrowed to ceftriaxone 2 g IV q. 12 h. Additionally the patient was found to have an E. coli urinary tract infection. Remarkably the patient improved relatively rapidly in terms of her mental status. She was essentially minimally responsive initially; however, now was awake, alert, and oriented, conversing and participating with physical therapy. The patient was seen in consultation by Dr. Fernandez who recommended 14 days of IV antibiotic therapy. She has 7 doses left to her ceftriaxone. The patient does continue to have daily headaches. She states they are worse in the morning or when she is upright. When she takes the pain medication, she essentially falls asleep and when she wakes up the headache is a little bit better. The patient did undergo a transthoracic echocardiogram on 07/04/17 that revealed an EF of 55% to 60% with normal left ventricular wall motion and contractility. No evidence of aortic stenosis, no evidence of aortic regurgitation. No evidence of mitral regurgitation and trace tricuspid regurgitation is noted. The patient at this point, has improved dramatically and is now ready for short-term rehab. The patient has been accepted to [facility] for rehab and will be discharged there today. The patient has a history of rheumatoid arthritis and appears to be on Humira and methotrexate as well as Plaquenil at home. Her Humira and methotrexate are currently on hold. The patient's medication list was difficult to obtain on admission and prior to discharge from [facility], we will need to ensure that an accurate medication list is provided to the patient on discharge. The patient has been having some diarrhea which is felt to be secondary to her ceftriaxone. She has been started on Imodium and Culturelle. C. diff testing was sent and was negative. FOLLOWUP CONCERNS: The patient is being discharged to [facility] today, 07/05/17. ACTIVITY LEVEL: As tolerated. DIET: Regular. CONDITION ON DISCHARGE: Stable. TIME SPENT: Thirty-five minutes was spent discharging this patient. [id number]/[facility] #: [id number] MTDThomas
== END 2017-07-05 13:25 | DRG 871 ==
LOC: ED 11:00 → MERGE 11:00 → ICU 15:08 → MED 06-25 11:06
PROVIDERS: ADMIT Hospitalist; ATTEND Hospitalist
PROC: 009U3ZX Drainage of Spinal Canal, Percutaneous Approach, Diagnostic (ICD-10-PCS; principal; 2017-06-24)
DX: A40.3 Sepsis due to Streptococcus pneumoniae (principal); G00.1 Pneumococcal meningitis; G93.41 Metabolic encephalopathy; R65.20 Severe sepsis without septic shock; N39.0 Urinary tract infection, site not specified; B96.20 Unspecified Escherichia coli [E. coli] as the cause of diseases classified elsewhere; M06.9 Rheumatoid arthritis, unspecified; M81.0 Age-related osteoporosis without current pathological fracture; F17.210 Nicotine dependence, cigarettes, uncomplicated; R19.7 Diarrhea, unspecified; Z66 Do not resuscitate; G97.1 Other reaction to spinal and lumbar puncture; Z79.899 Other long term (current) drug therapy; Z79.1 Long term (current) use of non-steroidal anti-inflammatories (NSAID)
CPT/HCPCS: 36415; 70450; 71010; 80048; 80053; 80061; 81003; 81015; 82040; 82550; 82803; 82945; 83605; 84157; 84484; 85025; 85027; 85060; 85610; 85730; 86850; 86900; 86901; 87040; 87070; 87077; 87086; 87186; 87205; 87493; 87502; 87641; 87899; 89051; 93005; 93306; 99406; A9270-GY; J0133; J0290; J0696; J1644; J2060; J2270; J2405; J2543; J2930; J3370; J3480; J7512

== ENCOUNTER 2017-07-05 12:49 | Inpatient (IN) | payer MEDICARE, BC ==
[2017-07-05] MEDS ORDERED: Acetaminophen TAB* 325 MG PO PRN (16:05)
[2017-07-05] MEDS ORDERED: Magnesium Hydroxide LIQ* 30 ML UDC PO PRN (16:05)
[2017-07-05] MEDS ORDERED: Docusate CAP* 100 MG PO PRN (16:05)
[2017-07-05] MEDS ORDERED: Senna TAB PO PRN (16:05)
[2017-07-05] MEDS: cefTRIAXone(*) 2 GM in NS 0.9% 100 ML* 100 ML IVPB SCH (17:29)
[2017-07-05] MEDS: Magic M W2 Ben/Maal/Nyst/Lido* 240 ML MOUTHWASH (alt formulation) SWISH SPIT SCH ×2 (18:31→20:48)
--- NOTE | 2017-07-05 20:16 | HP ---
HISTORY AND PHYSICAL: DATE OF ADMISSION: 07/05/17 REASON FOR ADMISSION: Bacterial meningitis; rheumatoid arthritis. HISTORY OF ILLNESS: Renee Hernandes is a 77-year-old female. She has a medical history significant for rheumatoid arthritis. Normally she takes Humira for her rheumatoid arthritis in addition to methotrexate. She treats with Dr. Mccollum's office and usually sees the nurse practitioner, Rosy Arora. The patient apparently lives with her grandson. On June 24, her son tried to call her and she did not answer on the phone. They drove to the house and tried to check on her. They found her on the bathroom floor. She had slurred speech. EMS was called. The patient was brought to [facility]. She had fever and altered mental status. In the emergency room, she had a lumbar puncture. The lumbar puncture fluid looked cloudy. There was a concern for bacterial meningitis. The patient was started on ceftriaxone 2 g every 12 hours for meningitis dosing. The patient's blood cultures eventually grew out Streptococcus pneumonia. Her cerebrospinal fluid also grew out Streptococcus pneumonia. The patient was kept on IV ceftriaxone. The patient had a consultation done with Dr. Faraz Fernandez. At that time, she was on ceftriaxone as well as vancomycin. As the cultures came back, the vancomycin was stopped and she was kept on ceftriaxone. With time, she became gradually more alert. Dr. Fernandez recommended 2 week course of ceftriaxone. She initially had a great deal of trouble with headaches. This seem to get better with time, although she tells me she still wakes up with a tremendous headache. The patient also developed diarrhea as a result of antibiotics. The patient was also given stress-dose steroids, IV Solu-Medrol initially, later changed to prednisone. She is still on prednisone at this time. The patient because of her prolonged illness and the fact that her disease modifying antirheumatic drugs had to be held because of her illness, has trouble mobilizing. She is felt to have physical therapy and occupational therapy needs. She is now being admitted for inpatient rehab, so she may return to independent living. PAST MEDICAL HISTORY: Significant for the aforementioned rheumatoid arthritis. In addition, she has history of small bowel obstruction. She has had a hysterectomy in the past and a cholecystectomy. CURRENT MEDICATIONS: Include: 1. Ceftriaxone 2 g IV every 12 hours. 2. She is also on heparin for DVT prophylaxis. 3. She is on Culturelle for antibiotic associated diarrhea. 4. Imodium for the same. 5. She is on magic mouthwash. 6. Potassium. 7. Prednisone. ALLERGIES: The patient has no known drug allergies. SOCIAL HISTORY: She is a nonsmoker, nondrinker. She lives with her grandson in a 2-dirk house. REVIEW OF SYSTEMS: The patient reports no current shortness of breath or chest pain. PHYSICAL EXAMINATION VITAL SIGNS: The patient's temperature is 98.3, blood pressure is 95/51, pulse is 80, respirations 16. HEENT: Her extraocular movements are intact. LUNGS: Sounded clear to auscultation. HEART: Sounds are regular. S1 and S2 are audible. ABDOMEN: Soft and nontender. EXTREMITIES: Showed normal muscle, bulk, and tone. Peripheral pulses were intact. NEUROLOGIC: She is awake, alert, oriented. Muscle strength is about 4+/5 throughout. FUNCTIONAL EXAM: She transfers with min assist. ASSESSMENT: 1. Bacterial meningitis. 2. Rheumatoid arthritis. PLAN: Integrate her into a comprehensive and therapeutic rehab program with the following goals: 1. Physical Therapy will see the patient. They are going to work on functional transfer training, ambulation training with a walker. 2. Occupational Therapy will see the patient, work on her activities of daily living including toileting and toilet transfers. 3. We will continue IV ceftriaxone for 3 more days. 4. Heparin for DVT prophylaxis. 5. Adequate analgesia for her headaches. We are going to try Fioricet. 6. For her diarrhea, we are going to continue Imodium and the probiotic. 7. Her disease modifying antirheumatic drugs have to be held with her recent illness. 8. Continue prednisone. 9. Family training as appropriate. 10. Advance directives: The patient has a MOLST form. She does not wish to be resuscitated in case of medical emergency. I have written a DNR chart in the order. 11. Volleyball Assembler will be closely involved to make sure that any services and equipment the patient requires are in place prior to discharge. 12. Home with appropriate services. ESTIMATED LENGTH OF STAY: 12 days. [id number]/[facility] #: [id number] [facility]ITAL[facility]
[2017-07-05] MEDS: Lactobacillus Acidophilu (GG)* 1 CAP CAP PO SCH (20:47)
[2017-07-05] MEDS: Heparin VIAL(*) 5000 UNITS/ML VIAL (FIVE THOUSAND) SUBCUT SCH (21:24)
[2017-07-06] MEDS: Heparin VIAL(*) 5000 UNITS/ML VIAL (FIVE THOUSAND) SUBCUT SCH ×3 (05:31→21:37)
[2017-07-06] MEDS: cefTRIAXone(*) 2 GM in NS 0.9% 100 ML* 100 ML IVPB SCH ×2 (05:31→18:03)
[2017-07-06] MEDS: Potassium Chlor TAB* 20 MEQ TAB.ER PO SCH (08:14)
[2017-07-06] MEDS: predniSONE TAB* 10 MG PO SCH (08:16)
[2017-07-06] MEDS: Lactobacillus Acidophilu (GG)* 1 CAP CAP PO SCH ×2 (08:16→21:36)
[2017-07-06] MEDS: Butalb/Acetamin/Caff TAB* 1 TAB PO PRN (08:16)
[2017-07-06 09:52] LABS: ABS Basophils 0.1 10^3/ul (0-0.2); ABS Eosinophils 0.1 10^3/ul (0-0.6); ABS Lymphocytes 1.4 10^3/ul (1.0-4.8); ABS Monocytes 0.5 10^3/ul (0-0.8); ABS Neutrophils 4.3 10^3/ul (1.5-7.7); ABS Nucleated RBC 0 10^3/ul; Eosinophil % 1.4 % (0-6); Hematocrit 35 % (35-47); Hemoglobin 11.8 g/dl (12.0-16.0); Lymphocyte % 21.8 % (25-47); Mean Corpuscular HGB Conc 34 g/dl (31-36); Mean Corpuscular Hemoglobin 35 pg (27-31); Mean Corpuscular Volume 103 fL (80-97); Mean Platelet Volume 8 um3 (7.4-10.4); Nucleated Red Blood Cells % 0; Platelet Count 335 10^3/ul (150-450); Red Blood Count 3.37 10^6/ul (4.0-5.4); Red Cell Distribution Width 14 % (10.5-15); White Blood Count 6.4 10^3/ul (3.5-10.8)
[2017-07-06 10:04] LABS: EGFR Non-African American 100.5 (>60)
[2017-07-06] MEDS: Magic M W2 Ben/Maal/Nyst/Lido* 240 ML MOUTHWASH (alt formulation) SWISH SPIT SCH ×4 (11:49→21:36)
--- NOTE | 2017-07-06 19:37 | PN ---
Progress Note - Progress Note Date of Service: 07/06/17 Note: Renee visited. Therapy notes read and reviewed. She has not had diarrhea today. She had a headache this morning and this was relieved by Fioricet. She is still on IV fluids, will try to lower to 60 ml/hour. Current Medications Acetaminophen (Tylenol Tab*) 650 mg PO Q6H PRN PRN Reason: FEVER/PAIN Acetaminophen/Butalbital/Caffeine (Fioricet Tab*) 1 tab PO Q6H PRN PRN Reason: HEADACHE Last Admin: 07/06/17 08:16 Dose: 1 tab Docusate Sodium (Colace Cap*) 100 mg PO BID PRN PRN Reason: CONSTIPATION Heparin Sodium (Porcine) (Heparin Vial(*)) 5,000 units SUBCUT Q8HR [facility] Last Admin: 07/06/17 14:58 Dose: 5,000 units Ceftriaxone Sodium 2 gm/ (Sodium Chloride) 100 mls @ 200 mls/hr IVPB Q12H [facility] Stop: 07/08/17 23:59 Last Admin: 07/06/17 18:03 Dose: 200 mls/hr Lactated Ringer's (Lactated Ringers 1000 Ml Bag*) 1,000 mls @ 75 mls/hr IV PER RATE [facility] Last Admin: 07/06/17 11:00 Dose: 75 mls/hr Lactobacillus Rhamnosus (Culturelle*) 1 cap PO BID [facility] Last Admin: 07/06/17 08:16 Dose: 1 cap Loperamide HCl (Imodium Cap*) 2 mg PO DAILY PRN PRN Reason: DIARRHEA Magnesium Hydroxide (Milk Of Magnesia Liq*) 30 ml PO Q6H PRN PRN Reason: CONSTIPATION Multi-Ingredient Mouthwash/Gargle (Magic M W2 Rigo/Maal/Nyst/Lido*) 5 ml SWISH SPIT QID [facility] Last Admin: 07/06/17 18:04 Dose: 5 ml Potassium Chloride (Klor Con Er Tab*) 40 meq PO DAILY [facility] Last Admin: 07/06/17 08:14 Dose: 40 meq Prednisone (Deltasone Tab*) 10 mg PO DAILY [facility] Last Admin: 07/06/17 08:16 Dose: 10 mg Senna (Senokot Tab*) 2 tab PO BEDTIME PRN PRN Reason: CONSTIPATION Laboratory Results - last 24 hr 07/06/17 07/06/17 09:25 09:26 WBC 6.4 RBC 3.37 L Hgb 11.8 L Hct 35 MCV 103 H MCH 35 H MCHC 34 RDW 14 Plt Count 335 MPV 8 Neut % (Auto) 67.3 Lymph % (Auto) 21.8 L [place] % (Auto) 8.3 Eos % (Auto) 1.4 Baso % (Auto) 1.2 Absolute Neuts (auto) 4.3 Absolute Lymphs (auto) 1.4 Absolute Monos (auto) 0.5 Absolute Eos (auto) 0.1 Absolute Basos (auto) 0.1 Absolute Nucleated RBC 0 Nucleated RBC % 0 Sodium 139 Potassium 3.8 Chloride 105 Carbon Dioxide 29 Anion Gap 5 BUN 13 Creatinine 0.58 Est GFR ( Amer) 129.3 Est GFR (Non-Af Amer) 100.5 BUN/Creatinine Ratio 22.4 H Glucose 152 H Calcium 8.0 L Total Bilirubin 0.30 AST 61 H ALT 64 H Alkaline Phosphatase 68 Total Protein 5.4 L Albumin 2.7 L Globulin 2.7 Albumin/Globulin Ratio 1.0 Vital Signs Temp Pulse Resp BP Pulse Ox 98.4 F 70 16 95/56 98 07/06/17 15:48 07/06/17 15:48 07/06/17 16:14 07/06/17 15:48 07/06/17 16:14 EXAM: HEENT: lips chapped LUNGS: scattered ronchi HEART: reg rhythm ABDOMEN: soft +BS ASSESSMENT/PLAN: 1. Meningitis/Sepsis: Ceftriaxone, 2 gm IV Q 12, day 12/14. Prednisone. PT/OT 2. Rheumatoid Arthritis: MTX/Humira on hold due to sepsis. On prednisone. Will coontact rheum 3. Antibiotic associated diarrhea: better today 4. Headaches: fioricet helped 5. DVT Prophylaxis: heparin S/Q 6. Hypokalemia: on Potassium 7. Hypotension: on IV fluids. Pressures improving 8. Advanced directives: has MOLST. DNR 9. Chapped lips: will order vaseline
[2017-07-06] MEDS: Petrolatum 5 GM* 5 GM PACKET TOPICAL SCH ×2 (21:33→21:37)
[2017-07-07] MEDS: Butalb/Acetamin/Caff TAB* 1 TAB PO PRN (00:09)
[2017-07-07] MEDS: Heparin VIAL(*) 5000 UNITS/ML VIAL (FIVE THOUSAND) SUBCUT SCH ×3 (05:46→21:19)
[2017-07-07] MEDS: cefTRIAXone(*) 2 GM in NS 0.9% 100 ML* 100 ML IVPB SCH ×2 (05:48→16:30)
[2017-07-07] MEDS: Potassium Chlor TAB* 20 MEQ TAB.ER PO SCH (08:24)
[2017-07-07] MEDS: Lactobacillus Acidophilu (GG)* 1 CAP CAP PO SCH ×2 (08:24→21:19)
[2017-07-07] MEDS: predniSONE TAB* 10 MG PO SCH (08:24)
[2017-07-07] MEDS: Magic M W2 Ben/Maal/Nyst/Lido* 240 ML MOUTHWASH (alt formulation) SWISH SPIT SCH ×4 (09:47→21:19)
[2017-07-07] MEDS: Petrolatum 5 GM* 5 GM PACKET TOPICAL SCH ×2 (09:53→21:18)
--- NOTE | 2017-07-07 18:29 | PN ---
Progress Note - Progress Note Date of Service: 07/07/17 Note: Renee visited. She had less headache today and overall feels a little better. Her BP is doing better. Will stop IV fluids. Therapy notes read and reviewed. Current Medications Acetaminophen (Tylenol Tab*) 650 mg PO Q6H PRN PRN Reason: FEVER/PAIN Acetaminophen/Butalbital/Caffeine (Fioricet Tab*) 1 tab PO Q6H PRN PRN Reason: HEADACHE Last Admin: 07/07/17 00:09 Dose: 1 tab Docusate Sodium (Colace Cap*) 100 mg PO BID PRN PRN Reason: CONSTIPATION Heparin Sodium (Porcine) (Heparin Vial(*)) 5,000 units SUBCUT Q8HR [facility] Last Admin: 07/07/17 14:24 Dose: 5,000 units Hydrocortisone (Hytone Cream 1%*) 1 applic TOPICAL BID [facility] Ceftriaxone Sodium 2 gm/ (Sodium Chloride) 100 mls @ 200 mls/hr IVPB Q12H [facility] Stop: 07/08/17 23:59 Last Admin: 07/07/17 16:30 Dose: 200 mls/hr Lactobacillus Rhamnosus (Culturelle*) 1 cap PO BID [facility] Last Admin: 07/07/17 08:24 Dose: 1 cap Loperamide HCl (Imodium Cap*) 2 mg PO DAILY PRN PRN Reason: DIARRHEA Magnesium Hydroxide (Milk Of Magnesia Liq*) 30 ml PO Q6H PRN PRN Reason: CONSTIPATION Multi-Ingredient Mouthwash/Gargle (Magic M W2 Rigo/Maal/Nyst/Lido*) 5 ml SWISH SPIT QID [facility] Last Admin: 07/07/17 16:30 Dose: 5 ml Petrolatum (Vaseline*) 5 gm TOPICAL BID [facility] Last Admin: 07/07/17 09:53 Dose: 5 gm Potassium Chloride (Klor Con Er Tab*) 40 meq PO DAILY [facility] Last Admin: 07/07/17 08:24 Dose: 40 meq Prednisone (Deltasone Tab*) 10 mg PO DAILY [facility] Last Admin: 07/07/17 08:24 Dose: 10 mg Senna (Senokot Tab*) 2 tab PO BEDTIME PRN PRN Reason: CONSTIPATION Vital Signs Temp Pulse Resp BP Pulse Ox 98.1 F 73 16 93/44 98 07/07/17 15:20 07/07/17 15:20 07/07/17 15:20 07/07/17 15:20 07/07/17 15:20 EXAM: HEENT: lips chapped LUNGS: scattered ronchi HEART: reg rhythm ABDOMEN: soft +BS ASSESSMENT/PLAN: 1. Strep Pneumoniae Meningitis/Sepsis: Ceftriaxone, 2 gm IV Q 12, day 13/14. Prednisone. PT/OT 2. Rheumatoid Arthritis: MTX/Humira on hold due to sepsis. On prednisone. Will contact rheum 3. Antibiotic associated diarrhea: better today 4. Headaches: fioricet helping 5. DVT Prophylaxis: heparin S/Q 6. Hypokalemia: on Potassium 7. Hypotension: will d/c IV fluids. Pressures improving 8. Advanced directives: has MOLST. DNR 9. Chapped lips: looking better since vaseline started
[2017-07-07] MEDS: Hydrocortisone 1% CREAM* 30 GM TUBE TOPICAL SCH (21:19)
[2017-07-08] MEDS: Butalb/Acetamin/Caff TAB* 1 TAB PO PRN (00:23)
[2017-07-08] MEDS: Heparin VIAL(*) 5000 UNITS/ML VIAL (FIVE THOUSAND) SUBCUT SCH ×3 (05:43→21:37)
[2017-07-08] MEDS: cefTRIAXone(*) 2 GM in NS 0.9% 100 ML* 100 ML IVPB SCH (05:45)
[2017-07-08] MEDS: Hydrocortisone 1% CREAM* 30 GM TUBE TOPICAL SCH ×2 (08:22→21:37)
[2017-07-08] MEDS: Lactobacillus Acidophilu (GG)* 1 CAP CAP PO SCH ×2 (08:23→21:37)
[2017-07-08] MEDS: predniSONE TAB* 10 MG PO SCH (08:23)
[2017-07-08] MEDS: Potassium Chlor TAB* 20 MEQ TAB.ER PO SCH (08:23)
[2017-07-08] MEDS: Magic M W2 Ben/Maal/Nyst/Lido* 240 ML MOUTHWASH (alt formulation) SWISH SPIT SCH ×4 (09:45→21:36)
[2017-07-08] MEDS: Petrolatum 5 GM* 5 GM PACKET TOPICAL SCH ×2 (09:45→21:38)
--- NOTE | 2017-07-08 12:51 | PMRUTEAM ---
PMRU: Goals Current Status: Nursing: Current Status Skin Deviations [Lip] Other Skin Deviations [Coccyx] Other Skin Deviations [Upper Back] Rash Skin Deviation Description [ cold sore scabbed. much improved with vaseline Lip] application Skin Deviation Description [ bruise on tailbone. new mepilex applied after Coccyx] patient showered Skin Deviation Description [ hydrocortizone cream applied Upper Back] Physical Therapy: Current Status Bed Mobility Assistance Supervision Transfer Moblility Assistance cga Transfer/Bed Mobility Rolling Walker Recommended Devices Ambulation Assistance cga Ambulation Assistive Devices Rolling Walker Number of Feet Patient 150' Ambulated Stairs Recommended Devices CGA and cues with Two Rails Number of Stairs 6 Occupational Therapy: Current Status Upper Body Dressing Supervision Lower Body Dressing Supervision Bathing Supervision Toileting Supervision Toilet Transfer Supervision Shower Transfer Supervision Eating Ind with Adaptive Equip Rec Therapy: Current Status Summary of Assessment and Pt. was in bed, tired and feeling cold. Pt. was Clinical Impression open to conversation - appeared to need a moment to answer questions after they were asked. Pt. was cooperative and states she was engaging in leisure activities until she fell. Pt. was open to continued leisure visits. Treatment Goals Pt. will engage in leisure activities while on the unit. Treatment Plan Provide RT services and encourage involvement. Social Work: Current Status Discharge Plan return home with home care svs and 24hr supervision from family Potential for Family Training pt's family is involved and supportive Anticipated Discharge Home Destination Discharge With home care svs and family support Goals: Physical Therapy: Initial Goals Bed Mobility Assistance Independent Transfer Mobility Assistance Independent Transfer/Bed Mobility None Recommended Devices Ambulation Independent Ambulation Recommended Devices None Stairs Assistance Independent Stair Recommended Devices One Rail Number of Stairs 5 Occupational Therapy: Initial Goals Goals to be Completed in (Days 7-10 ) Upper Body Bathing Routine Independent Lower Body Bathing Routine Modified Independent with Upper Body Dressing Routine Independent Lower Body Dressing Routine Modified Independent with Toilet Hygeine and Clothing Modified Independent with Management Routine Toilet Transfer Routine Modified Independent with Step-In Shower Transfer Modified Independent with Routine Functional Transfers for ADL Modified Independent with Grooming Routine Modified Independent with Feeding Routine Modified Independent with Light Housekeeping Tasks Independent Will request speech cognitive evaluation. Social Work: Goals Discharge Plan return home with home care svs and 24hr supervision from family Potential for Family Training pt's family is involved and supportive Anticipated Discharge Home Destination Discharge With home care svs and family support Care Plan: Care Plan ADL's - Improve/Maintain Start: 07/05/17 23:14 Freq: DAILY Status: Active Target: Protocol: Activity Type Activity Date Activity User E-Sign Co-Sign Detail Recorded Client Recorded Date Recorded By Document 07/08/17 12:01 [id number] [email or web address] 07/08/17 12:01 [id number] 07/08/17 12:01 PMRU Outcome: ADL's/ADL Transfers Orders/Interventions Occupational Therapy Evaluation & Treatment Communication Tool in Patient Room Device Yes Address Deficits Secondary To: sepsis 2* meningitis Patient to receive OT 5x/wk for 60-120 Therex min/day Self Care Management Group Therapy UE/LE ADL's with Assist Yes: Sakina ADL Transfers with Assist Yes: Sakina Toileting: Transfers,Clothing Management Yes: Sakina ,Hygeine w/Assist Light Kitchen/Laundry w/Assist Yes: Nohemy Progression Toward Outcome/Goals Progressing Outcome/Goals Met Pt participated well in ADL treatment session, increased standing balance and tolerance with ADL routine this date. Communication-Improve/Maintain Start: 07/06/17 09:22 Freq: DAILY Status: Active Target: Protocol: Activity Type Activity Date Activity User E-Sign Co-Sign Detail Recorded Client Recorded Date Recorded By Document 07/08/17 00:51 [id number] [email or web address] 07/08/17 00:51 [id number] 07/08/17 00:51 PMRU Outcome: Communication/Cognitive Status Outcome/Goals Makes Needs Known Effectively Progression Toward Outcomes/Goals Progressing DVT Prophylaxis- Improve/Maintain Start: 07/06/17 09:22 Freq: DAILY Status: Active Target: Protocol: Activity Type Activity Date Activity User E-Sign Co-Sign Detail Recorded Client Recorded Date Recorded By Document 07/08/17 10:08 [id number] 07/08/17 10:10 [id number] 07/08/17 10:08 PMRU Outcome: DVT Prophylaxis Outcome/Goals Remains Free of DVT TEDS Stockings on Every AM, Off at HS Progression Toward Outcome/Goals Progressing Discharge Planning - Improve/Maintain Start: 07/05/17 23:14 Freq: DAILY Status: Active Target: Protocol: Activity Type Activity Date Activity User E-Sign Co-Sign Detail Recorded Client Recorded Date Recorded By Document 07/08/17 00:51 [id number] [id number] 07/08/17 00:51 [id number] 07/08/17 00:51 PMRU Outcome: Discharge Planning Update Patient Family No Outcome/Goals Demonstrates Understanding of Discharge Plan Progression Toward Outcome/Goals Progressing Education-Improve/Maintain Start: 07/06/17 09:22 Freq: DAILY Status: Active Target: Protocol: Activity Type Activity Date Activity User E-Sign Co-Sign Detail Recorded Client Recorded Date Recorded By Document 07/08/17 10:08 [id number] [email or web address] 07/08/17 10:10 [id number] 07/08/17 10:08 PMRU Outcome: Education Outcome/Goals Encourage Questions Other Outcome/Goals grandchildren will be helping at home Progression Toward Outcome/Goals Progressing /GI-Improve/Maintain Start: 07/06/17 09:22 Freq: DAILY Status: Active Target: Protocol: Activity Type Activity Date Activity User E-Sign Co-Sign Detail Recorded Client Recorded Date Recorded By Document 07/08/17 10:08 [id number] [email or web address] 07/08/17 10:10 [id number] 07/08/17 10:08 PMRU Outcome: Genitourinary/ Gastrointestinal Genitourinary- Outcome/Goals Maintain/ Achieve Urinary Continence Remain Free of Hospital- Acquired UTI Gastrointestinal-Outcome/Goals Maintain/ Achieve Bowel Regularity in Accordance with Pt's Baseline Prevent Constipation Laxatives as Ordered Progression Toward Outcome/Goals - Progressing Progression Toward Outcome/Goals - GI Progressing Medication Administration Start: 07/06/17 09:22 Freq: DAILY Status: Active Target: Protocol: Activity Type Activity Date Activity User E-Sign Co-Sign Detail Recorded Client Recorded Date Recorded By Document 07/08/17 10:08 [id number] [email or web address] 07/08/17 10:10 [id number] 07/08/17 10:08 PMRU Outcome: Medication Administration Assess Patient Knowledge/Teach Med Yes Education for all Meds Outcome/Goals Family/ Caregiver Administer Medications at Home Progression Towards Outcome/Goals Progressing Is Patient Going Home on Lovenox? No Mobility- Improve/Maintain Start: 07/05/17 23:14 Freq: DAILY Status: Active Target: Protocol: Activity Type Activity Date Activity User E-Sign Co-Sign Detail Recorded Client Recorded Date Recorded By Document 07/08/17 12:18 [id number] [email or web address] 07/08/17 12:18 [id number] 07/08/17 12:18 PMRU Outcome: Mobility Progression Toward Outcome/Goals Progressing Pain/Comfort- Improve/Maintain Start: 07/06/17 09:22 Freq: DAILY Status: Active Target: Protocol: Activity Type Activity Date Activity User E-Sign Co-Sign Detail Recorded Client Recorded Date Recorded By Document 07/08/17 10:08 [id number] [email or web address] 07/08/17 10:10 [id number] 07/08/17 10:08 PMRU Outcome: Pain/Comfort Outcome/Goals Demonstrates Knowledge and Use of Available Comfort Measures Achieves Acceptable Comfort/Pain Level as Determined by Patient/Condit Maintain Comfort Level Allowing Patient to Fully Participate in Rehab Progression Toward Outcome/Goals Progressing Outcome/Goals Met Comment no c/o LOYA at this time Safety- Improve/Maintain Start: 07/05/17 23:14 Freq: DAILY Status: Active Target: Protocol: Activity Type Activity Date Activity User E-Sign Co-Sign Detail Recorded Client Recorded Date Recorded By Document 07/08/17 10:08 [id number] [email or web address] 07/08/17 10:10 [id number] 07/08/17 10:08 PMRU Outcome: Safety Outcome/Goals Remain Free of Injury or Harm Prevent Falls/ Injury Progression Toward Outcome/Goals Progressing Outcome/Goals Met Comment PA in place, room close to nurses station Skin- Improve/Maintain Start: 07/05/17 23:14 Freq: DAILY Status: Active Target: Protocol: Activity Type Activity Date Activity User E-Sign Co-Sign Detail Recorded Client Recorded Date Recorded By Document 07/08/17 10:08 [id number] [email or web address] 07/08/17 10:10 [id number] 07/08/17 10:08 PMRU Outcome: Skin Skin Risk Level Medium Skin Orders Air Mattress Spenco Boots Heels Off Bed Turn/Position q2hr While in Bed Outcome/Goals Maintain/ Improve Skin Intergrity Free from Decubitus Outcome/Goals Comment air mattress on bed, new mepilex applied after showering to protect tailbone Progression Toward Outcome/Goals Progressing Medicine Note: Length of Stay: [5 days] Anticipated Discharge Destination: Home Tentative Discharge Date: [07/13/17] Discharged to: [home]
--- NOTE | 2017-07-08 13:48 | PN ---
Progress Note - Progress Note Date of Service: 07/08/17 Note: Nursing and therapy notes reviewed. Diarrhea better with probiotic. Headaches respond to prn fioricet. No chest pain, shortness of breath or abdominal pain. therapists question some confusion. Acetaminophen (Tylenol Tab*) 650 mg PO Q6H PRN PRN Reason: FEVER/PAIN Acetaminophen/Butalbital/Caffeine (Fioricet Tab*) 1 tab PO Q6H PRN PRN Reason: HEADACHE Last Admin: 07/08/17 00:23 Dose: 1 tab Docusate Sodium (Colace Cap*) 100 mg PO BID PRN PRN Reason: CONSTIPATION Heparin Sodium (Porcine) (Heparin Vial(*)) 5,000 units SUBCUT Q8HR [facility] Last Admin: 07/08/17 05:43 Dose: 5,000 units Hydrocortisone (Hytone Cream 1%*) 1 applic TOPICAL BID [facility] Last Admin: 07/08/17 08:22 Dose: 1 applic Ceftriaxone Sodium 2 gm/ (Dextrose) 50 mls @ 100 mls/hr IV Q12H [facility] Lactobacillus Rhamnosus (Culturelle*) 1 cap PO BID [facility] Last Admin: 07/08/17 08:23 Dose: 1 cap Loperamide HCl (Imodium Cap*) 2 mg PO DAILY PRN PRN Reason: DIARRHEA Magnesium Hydroxide (Milk Of Magnesia Liq*) 30 ml PO Q6H PRN PRN Reason: CONSTIPATION Multi-Ingredient Mouthwash/Gargle (Magic M W2 Rigo/Maal/Nyst/Lido*) 5 ml SWISH SPIT QID [facility] Last Admin: 07/08/17 09:45 Dose: 5 ml Petrolatum (Vaseline*) 5 gm TOPICAL BID [facility] Last Admin: 07/08/17 09:45 Dose: 5 gm Potassium Chloride (Klor Con Er Tab*) 40 meq PO DAILY [facility] Last Admin: 07/08/17 08:23 Dose: 40 meq Prednisone (Deltasone Tab*) 10 mg PO DAILY [facility] Last Admin: 07/08/17 08:23 Dose: 10 mg Senna (Senokot Tab*) 2 tab PO BEDTIME PRN PRN Reason: CONSTIPATION Vital Signs 07/07/17 07/07/17 07/08/17 15:20 18:48 00:23 Temperature 98.1 F Pulse Rate 73 Respiratory 16 16 18 Rate Blood Pressure 93/44 (mmHg) O2 Sat by Pulse 98 98 Oximetry 07/08/17 07/08/17 02:07 05:28 Temperature 98.5 F Pulse Rate 61 Respiratory 16 20 Rate Blood Pressure 108/50 (mmHg) O2 Sat by Pulse 99 Oximetry EXAM: GEN: No acute distress. Alert and appropriate. LUNGS: clear bilaterally. HEART: regular rate and rhythm ABDOMEN: soft, +BS, non-tender, non-distended. EXT: no edema. ASSESSMENT/PLAN: 77yo woman with RA and bacterial meningitis. 1. Strep Pneumoniae Meningitis/Sepsis: Ceftriaxone, 2 gm IV Q 12, day 14/14. Prednisone. PT/OT 2. Rheumatoid Arthritis: MTX/Humira on hold due to sepsis. On prednisone. Needs rheumatology follow-up 3. Antibiotic associated diarrhea: culturelle and prn imodium 4. Headaches: fioricet prn 5. DVT Prophylaxis: heparin S/Q 6. Hypokalemia: on Potassium 7. Hypotension: s/p IVF. Encourage po fluids 8. Question some cognitive impairment: Will have speech do cognitive eval. Was managing own finances and meds at home. 9. Advanced directives: has MOLST. DNR 10. Dispo: After discussion in IPOC today anticipate d/c 07/13, Tuesday.
[2017-07-08] MEDS: cefTRIAXone 2 GM in D5W 50 ML BAG IV SCH (17:02)
[2017-07-09] MEDS: Butalb/Acetamin/Caff TAB* 1 TAB PO PRN (05:48)
[2017-07-09] MEDS: Heparin VIAL(*) 5000 UNITS/ML VIAL (FIVE THOUSAND) SUBCUT SCH ×3 (05:50→21:48)
[2017-07-09] MEDS: cefTRIAXone 2 GM in D5W 50 ML BAG IV SCH (05:52)
[2017-07-09] MEDS: Loperamide CAP* 2 MG PO PRN (08:24)
[2017-07-09] MEDS: Potassium Chlor TAB* 20 MEQ TAB.ER PO SCH (08:24)
[2017-07-09] MEDS: Lactobacillus Acidophilu (GG)* 1 CAP CAP PO SCH ×2 (08:24→21:42)
[2017-07-09] MEDS: predniSONE TAB* 10 MG PO SCH (08:24)
[2017-07-09] MEDS: Hydrocortisone 1% CREAM* 30 GM TUBE TOPICAL SCH ×2 (09:23→21:45)
[2017-07-09] MEDS ORDERED: NS 0.9% 1000 ML* 1,000 ML IV SCH (09:45)
[2017-07-09] MEDS: Petrolatum 5 GM* 5 GM PACKET TOPICAL SCH ×2 (10:52→21:47)
[2017-07-09] MEDS: Magic M W2 Ben/Maal/Nyst/Lido* 240 ML MOUTHWASH (alt formulation) SWISH SPIT SCH ×4 (10:52→21:44)
--- NOTE | 2017-07-09 12:10 | PN ---
Progress Note - Progress Note Date of Service: 07/09/17 Note: Nursing and therapy notes reviewed. Diarrhea 4x overnight. Headaches and dizziness/vertigo respond to prn fioricet. No chest pain, shortness of breath or abdominal pain. Acetaminophen (Tylenol Tab*) 650 mg PO Q6H PRN PRN Reason: FEVER/PAIN Last Admin: 07/08/17 17:43 Dose: 650 mg Acetaminophen/Butalbital/Caffeine (Fioricet Tab*) 1 tab PO Q6H PRN PRN Reason: HEADACHE Last Admin: 07/09/17 05:48 Dose: 1 tab Docusate Sodium (Colace Cap*) 100 mg PO BID PRN PRN Reason: CONSTIPATION Heparin Sodium (Porcine) (Heparin Vial(*)) 5,000 units SUBCUT Q8HR [facility] Last Admin: 07/09/17 05:50 Dose: 5,000 units Hydrocortisone (Hytone Cream 1%*) 1 applic TOPICAL BID [facility] Last Admin: 07/09/17 09:23 Dose: 1 applic Sodium Chloride (Ns 0.9% 1000 Ml*) 1,000 mls @ 75 mls/hr IV PER RATE [facility] Stop: 07/09/17 23:04 Last Admin: 07/09/17 10:51 Dose: 75 mls/hr Lactobacillus Rhamnosus (Culturelle*) 1 cap PO BID [facility] Last Admin: 07/09/17 08:24 Dose: 1 cap Loperamide HCl (Imodium Cap*) 2 mg PO DAILY PRN PRN Reason: DIARRHEA Last Admin: 07/09/17 08:24 Dose: 2 mg Magnesium Hydroxide (Milk Of Magnesia Liq*) 30 ml PO Q6H PRN PRN Reason: CONSTIPATION Multi-Ingredient Mouthwash/Gargle (Magic M W2 Rigo/Maal/Nyst/Lido*) 5 ml SWISH SPIT QID [facility] Last Admin: 07/09/17 10:52 Dose: 5 ml Petrolatum (Vaseline*) 5 gm TOPICAL BID [facility] Last Admin: 07/09/17 10:52 Dose: 5 gm Potassium Chloride (Klor Con Er Tab*) 40 meq PO DAILY [facility] Last Admin: 07/09/17 08:24 Dose: 40 meq Prednisone (Deltasone Tab*) 10 mg PO DAILY [facility] Last Admin: 07/09/17 08:24 Dose: 10 mg Senna (Senokot Tab*) 2 tab PO BEDTIME PRN PRN Reason: CONSTIPATION Vital Signs 07/08/17 07/08/17 07/08/17 16:25 20:00 23:18 Temperature 98.5 F Pulse Rate 77 Respiratory 20 20 Rate Blood Pressure 92/44 (mmHg) O2 Sat by Pulse 97 97 Oximetry 07/09/17 07/09/17 07/09/17 05:48 05:49 08:24 Temperature 99.0 F Pulse Rate 77 Respiratory 18 18 18 Rate Blood Pressure 98/47 (mmHg) O2 Sat by Pulse 98 Oximetry EXAM: GEN: No acute distress. Alert and appropriate. LUNGS: clear bilaterally. HEART: regular rate and rhythm ABDOMEN: soft, +BS, non-tender, non-distended. EXT: no edema. ASSESSMENT/PLAN: 77yo woman with RA and bacterial meningitis. 1. Strep Pneumoniae Meningitis/Sepsis: Completed 14 days of IV ceftriaxone. PT/ OT 2. Rheumatoid Arthritis: MTX/Humira on hold due to sepsis. On prednisone. Needs rheumatology follow-up 3. Antibiotic associated diarrhea: Completed antibiotics. culturelle and prn imodium 4. Headaches: fioricet prn 5. DVT Prophylaxis: heparin S/Q 6. Hypokalemia: on Potassium 7. Hypotension: Likely dehydration from diarrhea. Will restart IVF. Encourage po fluids 8. Question some cognitive impairment: Will have speech do cognitive eval. Was managing own finances and meds at home. 9. Advanced directives: has MOLST. DNR 10. Dispo: anticipate d/c 07/13, Tuesday.
[2017-07-10] MEDS: Heparin VIAL(*) 5000 UNITS/ML VIAL (FIVE THOUSAND) SUBCUT SCH ×3 (06:12→21:45)
[2017-07-10] MEDS: Butalb/Acetamin/Caff TAB* 1 TAB PO PRN (06:15)
[2017-07-10 06:24] LABS: EGFR Non-African American 82.3 (>60)
[2017-07-10] MEDS: predniSONE TAB* 10 MG PO SCH (08:06)
[2017-07-10] MEDS: Lactobacillus Acidophilu (GG)* 1 CAP CAP PO SCH ×2 (08:06→20:17)
[2017-07-10] MEDS: Potassium Chlor TAB* 20 MEQ TAB.ER PO SCH (08:06)
[2017-07-10] MEDS: Magic M W2 Ben/Maal/Nyst/Lido* 240 ML MOUTHWASH (alt formulation) SWISH SPIT SCH ×4 (10:23→20:18)
[2017-07-10] MEDS: Petrolatum 5 GM* 5 GM PACKET TOPICAL SCH ×2 (10:28→20:19)
--- NOTE | 2017-07-10 11:35 | PN ---
Progress Note - Progress Note Date of Service: 07/10/17 Note: Nursing and therapy notes reviewed. Diarrhea has slowed down. No headache this morning, so she is wondering if it was due to antibiotic. No chest pain, shortness of breath or abdominal pain. Family visiting. Acetaminophen (Tylenol Tab*) 650 mg PO Q6H PRN PRN Reason: FEVER/PAIN Last Admin: 07/08/17 17:43 Dose: 650 mg Acetaminophen/Butalbital/Caffeine (Fioricet Tab*) 1 tab PO Q6H PRN PRN Reason: HEADACHE Last Admin: 07/10/17 06:15 Dose: 1 tab Docusate Sodium (Colace Cap*) 100 mg PO BID PRN PRN Reason: CONSTIPATION Heparin Sodium (Porcine) (Heparin Vial(*)) 5,000 units SUBCUT Q8HR [facility] Last Admin: 07/10/17 06:12 Dose: 5,000 units Hydrocortisone (Hytone Cream 1%*) 1 applic TOPICAL BID [facility] Last Admin: 07/09/17 21:45 Dose: 1 applic Lactobacillus Rhamnosus (Culturelle*) 1 cap PO BID [facility] Last Admin: 07/10/17 08:06 Dose: 1 cap Loperamide HCl (Imodium Cap*) 2 mg PO DAILY PRN PRN Reason: DIARRHEA Last Admin: 07/09/17 08:24 Dose: 2 mg Magnesium Hydroxide (Milk Of Magnesia Liq*) 30 ml PO Q6H PRN PRN Reason: CONSTIPATION Multi-Ingredient Mouthwash/Gargle (Magic M W2 Rigo/Maal/Nyst/Lido*) 5 ml SWISH SPIT QID [facility] Last Admin: 07/10/17 10:23 Dose: 5 ml Petrolatum (Vaseline*) 5 gm TOPICAL BID [facility] Last Admin: 07/10/17 10:28 Dose: 5 gm Potassium Chloride (Klor Con Er Tab*) 40 meq PO DAILY [facility] Last Admin: 07/10/17 08:06 Dose: 40 meq Prednisone (Deltasone Tab*) 10 mg PO DAILY [facility] Last Admin: 07/10/17 08:06 Dose: 10 mg Senna (Senokot Tab*) 2 tab PO BEDTIME PRN PRN Reason: CONSTIPATION Vital Signs 07/09/17 07/09/17 07/09/17 14:18 14:19 16:13 Temperature 98.2 F Pulse Rate 71 Respiratory 18 18 16 Rate Blood Pressure 93/43 (mmHg) O2 Sat by Pulse 100 Oximetry 07/09/17 07/10/17 07/10/17 20:00 05:55 06:15 Temperature 98.6 F Pulse Rate 78 Respiratory 16 18 20 Rate Blood Pressure 114/51 (mmHg) O2 Sat by Pulse 99 Oximetry 07/10/17 08:08 Temperature Pulse Rate Respiratory 16 Rate Blood Pressure (mmHg) O2 Sat by Pulse Oximetry EXAM: GEN: No acute distress. Alert and appropriate. LUNGS: clear bilaterally. HEART: regular rate and rhythm ABDOMEN: soft, +BS, non-tender, non-distended. EXT: no edema. Laboratory Results - last 24 hr 07/10/17 05:59 Sodium 140 Potassium 4.1 Chloride 108 Carbon Dioxide 28 Anion Gap 4 BUN 18 Creatinine 0.69 Est GFR ( Amer) 105.8 Est GFR (Non-Af Amer) 82.3 BUN/Creatinine Ratio 26.1 H Glucose 92 Calcium 8.6 ASSESSMENT/PLAN: 77yo woman with RA and bacterial meningitis. 1. Strep Pneumoniae Meningitis/Sepsis: Completed 14 days of IV ceftriaxone. PT/ OT 2. Rheumatoid Arthritis: MTX/Humira on hold due to sepsis. On prednisone. Needs rheumatology follow-up 3. Antibiotic associated diarrhea: Completed antibiotics. culturelle and prn imodium 4. Headaches: fioricet prn. 5. DVT Prophylaxis: heparin S/Q 6. Hypokalemia: resolved on Potassium 7. Hypotension: Likely dehydration from diarrhea. Better with IVF. Encourage po fluids 8. Question some cognitive impairment: Will have speech do cognitive eval. Was managing own finances and meds at home. 9. Advanced directives: has MOLST. DNR 10. Dispo: anticipate d/c 07/13, Tuesday.
[2017-07-10] MEDS: Hydrocortisone 1% CREAM* 30 GM TUBE TOPICAL SCH ×2 (11:41→20:18)
[2017-07-10] MEDS: Loperamide CAP* 2 MG PO PRN (12:28)
[2017-07-11] MEDS: Heparin VIAL(*) 5000 UNITS/ML VIAL (FIVE THOUSAND) SUBCUT SCH ×3 (05:36→20:54)
[2017-07-11] MEDS: predniSONE TAB* 10 MG PO SCH (08:51)
[2017-07-11] MEDS: Lactobacillus Acidophilu (GG)* 1 CAP CAP PO SCH ×2 (08:51→20:49)
[2017-07-11] MEDS: Potassium Chlor TAB* 20 MEQ TAB.ER PO SCH (08:51)
[2017-07-11] MEDS: Hydrocortisone 1% CREAM* 30 GM TUBE TOPICAL SCH ×2 (08:51→20:50)
[2017-07-11] MEDS: Magic M W2 Ben/Maal/Nyst/Lido* 240 ML MOUTHWASH (alt formulation) SWISH SPIT SCH ×4 (08:53→20:54)
[2017-07-11] MEDS: Petrolatum 5 GM* 5 GM PACKET TOPICAL SCH ×2 (08:59→20:54)
[2017-07-11] MEDS: Loperamide CAP* 2 MG PO PRN (09:24)
--- NOTE | 2017-07-11 13:56 | PN ---
Progress Note - Progress Note Date of Service: 07/11/17 Note: Nursing and therapy notes reviewed. Diarrhea 2x this morning and got imodium. No headache last 2 mornings, so she is wondering if it was due to antibiotic. No chest pain, shortness of breath or abdominal pain. She does have some vertigo when changing positions that is better after she adjusts. Acetaminophen (Tylenol Tab*) 650 mg PO Q6H PRN PRN Reason: FEVER/PAIN Last Admin: 07/08/17 17:43 Dose: 650 mg Acetaminophen/Butalbital/Caffeine (Fioricet Tab*) 1 tab PO Q6H PRN PRN Reason: HEADACHE Last Admin: 07/10/17 06:15 Dose: 1 tab Docusate Sodium (Colace Cap*) 100 mg PO BID PRN PRN Reason: CONSTIPATION Heparin Sodium (Porcine) (Heparin Vial(*)) 5,000 units SUBCUT Q8HR [facility] Last Admin: 07/11/17 05:36 Dose: 5,000 units Hydrocortisone (Hytone Cream 1%*) 1 applic TOPICAL BID [facility] Last Admin: 07/11/17 08:51 Dose: 1 applic Lactobacillus Rhamnosus (Culturelle*) 1 cap PO BID [facility] Last Admin: 07/11/17 08:51 Dose: 1 cap Loperamide HCl (Imodium Cap*) 2 mg PO DAILY PRN PRN Reason: DIARRHEA Last Admin: 07/11/17 09:24 Dose: 2 mg Magnesium Hydroxide (Milk Of Magnesia Liq*) 30 ml PO Q6H PRN PRN Reason: CONSTIPATION Multi-Ingredient Mouthwash/Gargle (Magic M W2 Rigo/Maal/Nyst/Lido*) 5 ml SWISH SPIT QID [facility] Last Admin: 07/11/17 08:53 Dose: 5 ml Petrolatum (Vaseline*) 5 gm TOPICAL BID [facility] Last Admin: 07/11/17 08:59 Dose: 5 gm Potassium Chloride (Klor Con Er Tab*) 40 meq PO DAILY [facility] Last Admin: 07/11/17 08:51 Dose: 40 meq Prednisone (Deltasone Tab*) 10 mg PO DAILY [facility] Last Admin: 07/11/17 08:51 Dose: 10 mg Senna (Senokot Tab*) 2 tab PO BEDTIME PRN PRN Reason: CONSTIPATION Vital Signs 01/07/10/17 07/10/17 15:31 15:33 15:38 Temperature 98.1 F Pulse Rate 71 Respiratory 18 18 22 Rate Blood Pressure 93/46 (mmHg) O2 Sat by Pulse 98 Oximetry 07/11/17 07/11/17 07/11/17 05:40 05:46 09:24 Temperature 98.3 F Pulse Rate 72 Respiratory 18 18 16 Rate Blood Pressure 90/37 (mmHg) O2 Sat by Pulse 99 Oximetry 07/11/17 11:46 Temperature Pulse Rate Respiratory 16 Rate Blood Pressure (mmHg) O2 Sat by Pulse Oximetry I requested orthostatic VS which were done around noon: lying BP 118/62, sitting 136/54, standing 105/59 and HR 88. She denied lightheadedness. EXAM: GEN: No acute distress. Alert and appropriate. LUNGS: clear bilaterally. HEART: regular rate and rhythm ABDOMEN: soft, +BS, non-tender, non-distended. EXT: no edema. ASSESSMENT/PLAN: 77yo woman with RA and bacterial meningitis. 1. Strep Pneumoniae Meningitis/Sepsis: Completed 14 days of IV ceftriaxone. PT/ OT 2. Rheumatoid Arthritis: MTX/Humira on hold due to sepsis. On prednisone. Needs rheumatology follow-up 3. Antibiotic associated diarrhea: Completed antibiotics. culturelle and prn imodium 4. Headaches: fioricet prn, but has not needed last 2 days. Headaches may have been secondary to antibiotic. 5. DVT Prophylaxis: heparin S/Q 6. Hypokalemia: resolved on Potassium 7. Hypotension: Encourage po fluids. BP better this afternoon. 8. Question some cognitive impairment: speech doing cognitive eval today. Was managing own finances and meds at home. 9. Advanced directives: has MOLST. DNR 10. Dispo: anticipate d/c 07/13, Tuesday.
[2017-07-11] MEDS: Butalb/Acetamin/Caff TAB* 1 TAB PO PRN (21:09)
[2017-07-12] MEDS: Heparin VIAL(*) 5000 UNITS/ML VIAL (FIVE THOUSAND) SUBCUT SCH ×3 (05:26→22:15)
[2017-07-12] MEDS: Magic M W2 Ben/Maal/Nyst/Lido* 240 ML MOUTHWASH (alt formulation) SWISH SPIT SCH ×4 (08:20→20:26)
[2017-07-12] MEDS: Lactobacillus Acidophilu (GG)* 1 CAP CAP PO SCH ×2 (08:21→20:25)
[2017-07-12] MEDS: Potassium Chlor TAB* 20 MEQ TAB.ER PO SCH (08:21)
[2017-07-12] MEDS: predniSONE TAB* 10 MG PO SCH (08:21)
[2017-07-12] MEDS: Hydrocortisone 1% CREAM* 30 GM TUBE TOPICAL SCH ×2 (08:21→20:28)
[2017-07-12] MEDS: Petrolatum 5 GM* 5 GM PACKET TOPICAL SCH ×2 (08:23→20:28)
--- NOTE | 2017-07-12 12:56 | PMRUTEAM ---
PMRU: Goals Current Status: Nursing: Current Status Skin Deviations [Lip] Other Skin Deviations [Coccyx] Other Skin Deviations [Upper Back] Rash Skin Deviation Description [ cold sore - healing Lip] Skin Deviation Description [ Mepilex in place Coccyx] Skin Deviation Description [ hydrocortizone cream applied Upper Back] Bladder Current Status voiding. no incontinence Bowel Current Status bm this am Nutrition Current Status appetite good Medication Current Status needs reinforcement Physical Therapy: Current Status Bed Mobility Assistance Supervision Transfer Moblility Assistance Supervision Transfer/Bed Mobility Rolling Walker Recommended Devices Ambulation Assistance Supervision Ambulation Assistive Devices Rolling Walker Number of Feet Patient 150' Ambulated Ambulation Comment Pt. is able to perform a SPT using a 2 w/w S x 1. Stairs Assistance Supervision Stairs Recommended Devices One Rail,Two Rails Number of Stairs 5 Occupational Therapy: Current Status Upper Body Dressing Supervision Lower Body Dressing Supervision Bathing Supervision Toileting Supervision Toilet Transfer Supervision Shower Transfer Supervision Eating Ind with Adaptive Equip Eating Progress dentures Rec Therapy: Current Status Summary of Assessment and RT assessment complete and pt. is aware of RT Clinical Impression services. Pt. presents with latencies at in conversation but provides appropriate responses and is cooperative. Pt. identifies with interests and open to continued leisure visits. Treatment Goals Pt. will engage in leisure activities while on the unit. Treatment Plan Provide RT services and encourage involvement. Social Work: Current Status Discharge Plan return home with home care svs and family support Potential for Family Training pt's granddaughter will be attending family training today Anticipated Discharge Home Destination Discharge With home care svs and family support Nutrition: Current Status Monitoring full assesment planned 07/15. Pt is eating well ( avg ~75%) w/regular diet; lactose-free as requested by pt. Wt is lean but stable. Skin is intact w/low risk for breakdown. Pt having daily BMs. Initial goals are as outlined below. Goals: Physical Therapy: Initial Goals Bed Mobility Assistance Independent Transfer Mobility Assistance Independent Transfer/Bed Mobility None Recommended Devices Ambulation Independent Ambulation Recommended Devices None Stairs Assistance Independent Stair Recommended Devices One Rail Number of Stairs 5 Physical Therapy: Updated Goals Bed Mobility Assistance Independent Transfer Mobility Assistance Independent Transfer/Bed Mobility Rolling Walker Recommended Devices Ambulation Assistance Independent Ambulation Assistive Devices Rolling Walker Ambulation Distance (ft) 150 Stairs Assistance Independent Stairs Recommended Devices One Rail Number of Stairs 5 Occupational Therapy: Initial Goals Goals to be Completed in (Days 7-10 ) Upper Body Bathing Routine Independent Lower Body Bathing Routine Modified Independent with Upper Body Dressing Routine Independent Lower Body Dressing Routine Modified Independent with Toilet Hygeine and Clothing Modified Independent with Management Routine Toilet Transfer Routine Modified Independent with Step-In Shower Transfer Modified Independent with Routine Functional Transfers for ADL Modified Independent with Grooming Routine Modified Independent with Feeding Routine Modified Independent with Light Housekeeping Tasks Minimal Contact Assist Nursing: Goals Bladder Goal same Bowel Goal independent Nutrition Goal 100% of all meals Medication Goal supervision Nutrition: Goals Intervention Goals 1. adequate po intake to maintain stable wt, lean body mass, and skin integrity 2. adequate fluid intake; no clinical s/sx dehydration 3. maintain regular bowel pattern without constipation or diarrhea Speech: Goals Speech Goal 1 Expressive Language Goal 1 Comments Short-Term Goal: Pt will solve written money management problems with 90% accuracy given moderate skilled instruction and cueing. Long-Term Goal: Pt will solve written money management problems with 90% accuracy given minimal cueing. Speech Goal 2 Memory Speech Goal 2 Comments Short-Term Goal: Pt will use encode and retrieve 3/4 items given moderate skilled instruction to use memory enhancement strategies. Long-Term Goal: Pt will use encode and retrieve 4 /4 items given Minimal cueing to use memory enhancement strategies. Social Work: Goals Discharge Plan return home with home care svs and family support Potential for Family Training pt's granddaughter will be attending family training today Anticipated Discharge Home Destination Discharge With home care svs and family support Care Plan: Care Plan ADL's - Improve/Maintain Start: 07/05/17 23:14 Freq: DAILY Status: Active Target: Protocol: Activity Type Activity Date Activity User E-Sign Co-Sign Detail Recorded Client Recorded Date Recorded By Document 07/11/17 15:37 [id number] [id number] 07/11/17 15:37 [id number] 07/11/17 15:37 PMRU Outcome: ADL's/ADL Transfers Orders/Interventions Occupational Therapy Evaluation & Treatment Communication Tool in Patient Room Device Yes Address Deficits Secondary To: sepsis 2* meningitis Patient to receive OT 5x/wk for 60-120 Therex min/day Self Care Management Group Therapy UE/LE ADL's with Assist Yes: Sakina ADL Transfers with Assist Yes: Sakina Toileting: Transfers,Clothing Management Yes: Sakina ,Hygeine w/Assist Light Kitchen/Laundry w/Assist Yes: Nohemy Progression Toward Outcome/Goals Progressing Outcome/Goals Met Pt participated well, supervision/ setup for completion of ADL routine and transfers. Plan for family training next date. Communication-Improve/Maintain Start: 07/06/17 09:22 Freq: DAILY Status: Active Target: Protocol: Activity Type Activity Date Activity User E-Sign Co-Sign Detail Recorded Client Recorded Date Recorded By Document 07/12/17 03:05 [id number] [email or web address] 07/12/17 03:06 [id number] 07/12/17 03:05 PMRU Outcome: Communication/Cognitive Status Outcome/Goals Makes Needs Known Effectively Progression Toward Outcomes/Goals Progressing DVT Prophylaxis- Improve/Maintain Start: 07/06/17 09:22 Freq: DAILY Status: Active Target: Protocol: Activity Type Activity Date Activity User E-Sign Co-Sign Detail Recorded Client Recorded Date Recorded By Document 07/12/17 11:23 [id number] 07/12/17 11:25 [id number] 07/12/17 11:23 PMRU Outcome: DVT Prophylaxis Outcome/Goals Remains Free of DVT Demonstrates Knowledge of DVT Prevention/ Treatment TEDS Stockings on Every AM, Off at HS Progression Toward Outcome/Goals Progressing Discharge Planning - Improve/Maintain Start: 07/05/17 23:14 Freq: DAILY Status: Active Target: Protocol: Activity Type Activity Date Activity User E-Sign Co-Sign Detail Recorded Client Recorded Date Recorded By Document 07/12/17 03:05 [id number] 07/12/17 03:06 [id number] 07/12/17 03:05 PMRU Outcome: Discharge Planning Update Patient Family No Outcome/Goals Demonstrates Understanding of Discharge Plan Progression Toward Outcome/Goals Progressing Education-Improve/Maintain Start: 07/06/17 09:22 Freq: DAILY Status: Active Target: Protocol: Activity Type Activity Date Activity User E-Sign Co-Sign Detail Recorded Client Recorded Date Recorded By Document 07/12/17 11:23 [id number] 07/12/17 11:25 [id number] 07/12/17 11:23 PMRU Outcome: Education Outcome/Goals Encourage Questions Progression Toward Outcome/Goals Progressing /GI-Improve/Maintain Start: 07/06/17 09:22 Freq: DAILY Status: Active Target: Protocol: Activity Type Activity Date Activity User E-Sign Co-Sign Detail Recorded Client Recorded Date Recorded By Document 07/12/17 11:23 [id number] [email or web address] 07/12/17 11:25 [id number] 07/12/17 11:23 PMRU Outcome: Genitourinary/ Gastrointestinal Genitourinary- Outcome/Goals Maintain/ Achieve Urinary Continence Remain Free of Hospital- Acquired UTI Gastrointestinal-Outcome/Goals Maintain/ Achieve Bowel Regularity in Accordance with Pt's Baseline Prevent Constipation Laxatives as Ordered Progression Toward Outcome/Goals - Progressing Progression Toward Outcome/Goals - GI Progressing Medication Administration Start: 07/06/17 09:22 Freq: DAILY Status: Active Target: Protocol: Activity Type Activity Date Activity User E-Sign Co-Sign Detail Recorded Client Recorded Date Recorded By Document 07/12/17 11:23 [id number] 07/12/17 11:25 [id number] 07/12/17 11:23 PMRU Outcome: Medication Administration Assess Patient Knowledge/Teach Med Yes Education for all Meds Outcome/Goals Family/ Caregiver Administer Medications at Home Progression Towards Outcome/Goals Progressing Is Patient Going Home on Lovenox? No Mobility- Improve/Maintain Start: 07/05/17 23:14 Freq: DAILY Status: Active Target: Protocol: Activity Type Activity Date Activity User E-Sign Co-Sign Detail Recorded Client Recorded Date Recorded By Document 07/08/17 12:18 [id number] [email or web address] 07/08/17 12:18 [id number] 07/08/17 12:18 PMRU Outcome: Mobility Progression Toward Outcome/Goals Progressing Pain/Comfort- Improve/Maintain Start: 07/06/17 09:22 Freq: DAILY Status: Active Target: Protocol: Activity Type Activity Date Activity User E-Sign Co-Sign Detail Recorded Client Recorded Date Recorded By Document 07/12/17 11:23 [id number] 07/12/17 11:25 [id number] 07/12/17 11:23 PMRU Outcome: Pain/Comfort Outcome/Goals Demonstrates Knowledge and Use of Available Comfort Measures Achieves Acceptable Comfort/Pain Level as Determined by Patient/Condit Maintain Comfort Level Allowing Patient to Fully Participate in Rehab Other Outcome/Goals no c/o pain verbalized thus far. Progression Toward Outcome/Goals Progressing Safety- Improve/Maintain Start: 07/05/17 23:14 Freq: DAILY Status: Active Target: Protocol: Activity Type Activity Date Activity User E-Sign Co-Sign Detail Recorded Client Recorded Date Recorded By Document 07/12/17 11:23 [id number] [id number] 07/12/17 11:25 [id number] 07/12/17 11:23 PMRU Outcome: Safety Outcome/Goals Remain Free of Injury or Harm Prevent Falls/ Injury Progression Toward Outcome/Goals Progressing Outcome/Goals Met Comment PA in place Skin- Improve/Maintain Start: 07/05/17 23:14 Freq: DAILY Status: Active Target: Protocol: Activity Type Activity Date Activity User E-Sign Co-Sign Detail Recorded Client Recorded Date Recorded By Document 07/12/17 11:23 [id number] [id number] 07/12/17 11:25 [id number] 07/12/17 11:23 PMRU Outcome: Skin Skin Risk Level Medium Skin Orders Air Mattress Spenco Boots Heels Off Bed Turn/Position q2hr While in Bed Outcome/Goals Maintain/ Improve Skin Intergrity Free from Decubitus Progression Toward Outcome/Goals Progressing Medicine Note: Length of Stay: 1 day Anticipated Discharge Destination: Home Tentative Discharge Date: 07/13/17 Discharged to: Home
[2017-07-12] MEDS ORDERED: predniSONE TAB* 5 MG PO SCH (17:49)
--- NOTE | 2017-07-12 17:51 | PN ---
Progress Note - Progress Note Date of Service: 07/12/17 Note: Renee visited. She was discussed in interdisciplinary team rounds. She is doing better and will go home tomorrow. No headache today. Current Medications Acetaminophen (Tylenol Tab*) 650 mg PO Q6H PRN PRN Reason: FEVER/PAIN Last Admin: 07/08/17 17:43 Dose: 650 mg Acetaminophen/Butalbital/Caffeine (Fioricet Tab*) 1 tab PO Q6H PRN PRN Reason: HEADACHE Last Admin: 07/11/17 21:09 Dose: 1 tab Docusate Sodium (Colace Cap*) 100 mg PO BID PRN PRN Reason: CONSTIPATION Heparin Sodium (Porcine) (Heparin Vial(*)) 5,000 units SUBCUT Q8HR [facility] Last Admin: 07/12/17 14:27 Dose: 5,000 units Hydrocortisone (Hytone Cream 1%*) 1 applic TOPICAL BID [facility] Last Admin: 07/12/17 08:21 Dose: 1 applic Lactobacillus Rhamnosus (Culturelle*) 1 cap PO BID [facility] Last Admin: 07/12/17 08:21 Dose: 1 cap Loperamide HCl (Imodium Cap*) 2 mg PO DAILY PRN PRN Reason: DIARRHEA Last Admin: 07/11/17 09:24 Dose: 2 mg Magnesium Hydroxide (Milk Of Magnesia Liq*) 30 ml PO Q6H PRN PRN Reason: CONSTIPATION Multi-Ingredient Mouthwash/Gargle (Magic M W2 Rigo/Maal/Nyst/Lido*) 5 ml SWISH SPIT QID [facility] Last Admin: 07/12/17 17:45 Dose: 5 ml Petrolatum (Vaseline*) 5 gm TOPICAL BID [facility] Last Admin: 07/12/17 08:23 Dose: 5 gm Potassium Chloride (Klor Con Er Tab*) 40 meq PO DAILY [facility] Last Admin: 07/12/17 08:21 Dose: 40 meq Prednisone (Deltasone Tab*) 5 mg PO DAILY [facility] Senna (Senokot Tab*) 2 tab PO BEDTIME PRN PRN Reason: CONSTIPATION Vital Signs Temp Pulse Resp BP Pulse Ox 98.3 F 83 18 92/47 98 07/12/17 16:11 07/12/17 16:11 07/12/17 16:11 07/12/17 16:11 07/12/17 16:11 EXAM: HEENT: lips chapped LUNGS: scattered ronchi HEART: reg rhythm ABDOMEN: soft +BS ASSESSMENT/PLAN: 1. Strep Pneumoniae Meningitis/Sepsis: Ceftriaxone completed. PT/OT 2. Rheumatoid Arthritis: MTX/Humira on hold due to sepsis. On prednisone will lower to 5 mg. follow up w/ rheum 3. Antibiotic associated diarrhea: better 4. Headaches: fioricet helping; none today 5. DVT Prophylaxis: heparin S/Q 6. Hypokalemia: on Potassium 7. Advanced directives: has MOLST. DNR 8. Disposition: home 07/13/17
[2017-07-12] MEDS: Butalb/Acetamin/Caff TAB* 1 TAB PO PRN (20:25)
[2017-07-13] MEDS: Heparin VIAL(*) 5000 UNITS/ML VIAL (FIVE THOUSAND) SUBCUT SCH (04:55)
[2017-07-13 06:15] VITALS: BP 91/42
[2017-07-13 07:08] LABS: ABS Basophils 0 10^3/ul (0-0.2); ABS Eosinophils 0.1 10^3/ul (0-0.6); ABS Lymphocytes 2.4 10^3/ul (1.0-4.8); ABS Monocytes 0.5 10^3/ul (0-0.8); ABS Neutrophils 3.4 10^3/ul (1.5-7.7); ABS Nucleated RBC 0 10^3/ul; Eosinophil % 1.7 % (0-6); Hematocrit 34 % (35-47); Hemoglobin 11.6 g/dl (12.0-16.0); Lymphocyte % 37.1 % (25-47); Mean Corpuscular HGB Conc 34 g/dl (31-36); Mean Corpuscular Hemoglobin 35 pg (27-31); Mean Corpuscular Volume 103 fL (80-97); Mean Platelet Volume 8 um3 (7.4-10.4); Nucleated Red Blood Cells % 0; Platelet Count 269 10^3/ul (150-450); Red Blood Count 3.31 10^6/ul (4.0-5.4); Red Cell Distribution Width 15 % (10.5-15); White Blood Count 6.4 10^3/ul (3.5-10.8)
[2017-07-13 07:40] LABS: EGFR Non-African American 75.9 (>60)
[2017-07-13] MEDS: Potassium Chlor TAB* 20 MEQ TAB.ER PO SCH (08:05)
[2017-07-13] MEDS: Hydrocortisone 1% CREAM* 30 GM TUBE TOPICAL SCH (08:05)
[2017-07-13] MEDS: Lactobacillus Acidophilu (GG)* 1 CAP CAP PO SCH (08:05)
[2017-07-13] MEDS: Petrolatum 5 GM* 5 GM PACKET TOPICAL SCH (08:05)
[2017-07-13] MEDS: Magic M W2 Ben/Maal/Nyst/Lido* 240 ML MOUTHWASH (alt formulation) SWISH SPIT SCH (08:06)
[2017-07-13] MEDS: Loperamide CAP* 2 MG PO PRN (08:50)
--- NOTE | 2017-07-14 02:57 | DS ---
CC: Dr. Norm Strauss; Rosy Arora NP * DISCHARGE SUMMARY: DATE OF ADMISSION: 07/05/17 DATE OF DISCHARGE: 07/13/17 DISCHARGE DIAGNOSES: 1. Bacterial meningitis. 2. Rheumatoid arthritis. 3. Status post hysterectomy. 4. Antibiotic associated diarrhea. 5. Headaches. 6. Hypokalemia. HISTORY OF ILLNESS AND HOSPITAL COURSE: For complete history of the events leading up to her rehab stay, please see the history and physical dictated by me on 07/05/17. While on the rehab unit, the patient did complain of diarrhea. She was started on a probiotic and later was using Imodium with some improvement. When she completed her 14-day course of antibiotics, her diarrhea improved. The patient had significant headaches, which were felt to be due to her meningitis. These were treated with Fioricet with good results. She would normally take a Fioricet once a day. The patient did complete a 14-day course of ceftriaxone 2 g intravenously every 12 hours for her meningitis. She had grown out strep pneumoniae. The patient's medications for rheumatoid arthritis , her Humira and methotrexate, continue to be held because of her infection. The patient was seen by both Physical and Occupational Therapy and made good gains with both disciplines. With physical therapy at the time of admission, the patient required min assist to do a transfer. She was able to ambulate with minimal amount of assistance to 150 feet. She had significant difficulties with her balance. With occupational therapy, the patient required min assist for upper body dressing, min assist for lower body dressing, min assist for toileting. By the time of discharge, the patient was independent in ambulating , independent transfers, independently ambulating 150 feet. She was still requiring supervision for toileting and supervision for dressing. The patient was discharged home with her grandchildren. Also of note, the patient did receive speech therapy while on the rehab unit. She was noted at discharge to have mildly impaired attention and memory and difficulty with money management. As her grandchildren will be able to supervise her, she was discharged to home on 07/13/17. DISCHARGE DIET: Regular. DISCHARGE MEDICATIONS: Included: 1. Fioricet 1 tablet every 6 hours as needed, not to exceed 2 per day. 2. Potassium chloride 40 mEq daily. 3. Prednisone 5 mg daily. 4. Combigan eye drops 1 drop both eyes twice daily. 5. Plaquenil 200 mg twice daily. SERVICES AFTER DISCHARGE: Through [facility]. She will have home nursing, home physical therapy, and home health aide. Follow up with Dr. Norm Strauss, her primary care doctor, as well as oRsy Arora, her staff toxicologist. [id number]/[facility] #: [id number] VISHAL
== END 2017-07-13 10:22 | disposition home health service (06) | DRG 545 ==
LOC: PMRU 13:30
PROVIDERS: ADMIT Physical Medicine & Rehabilitation; ATTEND Physical Medicine & Rehabilitation
PROC: F07Z5ZZ Bed Mobility Treatment (ICD-10-PCS; principal; 2017-07-05)
PROC: F07Z9ZZ Gait Training/Functional Ambulation Treatment (ICD-10-PCS; 2017-07-05)
PROC: F07Z8ZZ Transfer Training Treatment (ICD-10-PCS; 2017-07-05)
PROC: F08Z0ZZ Bathing/Showering Techniques Treatment (ICD-10-PCS; 2017-07-05)
PROC: F08Z1ZZ Dressing Techniques Treatment (ICD-10-PCS; 2017-07-05)
PROC: F08Z3ZZ Feeding/Eating Treatment (ICD-10-PCS; 2017-07-05)
DX: M06.9 Rheumatoid arthritis, unspecified (principal); G00.1 Pneumococcal meningitis; I95.9 Hypotension, unspecified; E86.0 Dehydration; K52.1 Toxic gastroenteritis and colitis; T36.95XD Adverse effect of unspecified systemic antibiotic, subsequent encounter; Z66 Do not resuscitate; G44.89 Other headache syndrome; E87.6 Hypokalemia
CPT/HCPCS: 36415; 80048; 80053; 85025; A9270-GY; J0696; J1644; J7512

== ENCOUNTER 2021-12-10 12:15 | Inpatient (IN) ==
[~2021-12-10 12:15] MED LIST: Buffered Lidocaine 1% SYRIN 1 ml INTRADERM ONE; Lactated Ringers 1000 ml BAG 1,000 ML IV SCH
[2021-12-10] MEDS ORDERED: ceFAZolin 2 GM in NS PREMIX 2 GM/100 ML BAG IVPB ONE (12:47)
[2021-12-10] MEDS ORDERED: Naloxone 0.4 mg VIAL 0.4 mg/ml 1 ml VIAL IV PRN (13:16)
[2021-12-10] MEDS ORDERED: Prochlorperazine 5 mg/ml 2 ml VIAL (10 mg) IV PRN (13:16)
[2021-12-10] MEDS ORDERED: fentaNYL 100 mcg/2 ml 50 MCG/ML VIAL IV PRN (13:16)
[2021-12-10] MEDS ORDERED: HYDROcodone/ACETAMIN 5/325 mg TAB PO PRN (13:16)
[2021-12-10] MEDS ORDERED: Hydrocortisone INJ 100 MG/2ML 2 ML VIAL IV ONE (13:19)
[2021-12-10] MEDS ORDERED: Rocuronium 50 mg VIAL 10 mg/ml 5 ml VIAL (50 mg) ONE (13:25)
[2021-12-10] MEDS ORDERED: Dexamethasone IV 4 MG/ML VIAL 1 ml VIAL ONE (13:25)
[2021-12-10] MEDS ORDERED: Ondansetron 4 mg VIAL 2 MG/ML 2 ml VIAL ONE (13:25)
[2021-12-10] MEDS ORDERED: Thrombin 5,000 UNITS 1 APPLIC KIT - topical use - TOPICAL ONE (13:26)
[2021-12-10] MEDS ORDERED: Lidocaine 2% PF 5 ML VIAL ONE (13:26)
[2021-12-10] MEDS ORDERED: Lidocaine 1% w EPI 1:200,000 SDV 30 ML VIAL ONE (13:26)
[2021-12-10] MEDS ORDERED: Gelfoam Sponge SIZE 100 SPONGE ONE (13:27)
[2021-12-10] MEDS ORDERED: ceFAZolin VIAL VIAL ONE ×2 (13:27→14:44)
[2021-12-10] MEDS ORDERED: Hydrocortisone INJ 100 MG/2ML 2 ML VIAL ONE (13:38)
[2021-12-10] MEDS ORDERED: fentaNYL 100 mcg/2 ml 50 MCG/ML VIAL ONE (14:49)
[2021-12-10] MEDS: HYDROcodone/ACETAMIN 5/325 mg TAB PO PRN (20:11)
[2021-12-10] MEDS ORDERED: Bimatoprost 0.01% OPHTH (NF) 2.5 ML BTL BOTH EYES SCH (21:00)
[2021-12-10] MEDS ORDERED: Brimonidine/Timolol 0.2%/0.5% OPTH(NF) SOL 5 ML BOTH EYES SCH (21:00)
[2021-12-10] MEDS: Timolol 0.5% OPTH.SOL BTL BOTH EYES SCH (22:00)
[2021-12-10] MEDS: CMC:Brimonidine P 0.15%(NF) OPH SOL 5 ML BTL BOTH EYES SCH (22:08)
[2021-12-10] MEDS: ceFAZolin 1 GM ADVAN 1 GM in NS 0.9% 50 ML 50 ML IVPB SCH (22:08)
[2021-12-10] MEDS: Latanoprost 0.005% 2.5 ml BTL BOTH EYES SCH (22:10)
[2021-12-11] MEDS: HYDROcodone/ACETAMIN 5/325 mg TAB PO PRN ×5 (00:17→21:12)
[2021-12-11] MEDS: ceFAZolin 1 GM ADVAN 1 GM in NS 0.9% 50 ML 50 ML IVPB SCH ×2 (06:25→13:07)
[2021-12-11] MEDS: Timolol 0.5% OPTH.SOL BTL BOTH EYES SCH ×2 (08:30→21:07)
[2021-12-11] MEDS: CMC:Brimonidine P 0.15%(NF) OPH SOL 5 ML BTL BOTH EYES SCH ×2 (08:30→21:07)
[2021-12-11] MEDS ORDERED: Vancomycin 1,000 MG in NS 0.9% 250 ml 250 ML IVPB ONE (10:07)
[2021-12-11] MEDS ORDERED: Vancomycin per Pharmacy 1 EA NOTE FOLLOW UP PRN (11:51)
[2021-12-11] MEDS: Latanoprost 0.005% 2.5 ml BTL BOTH EYES SCH (21:08)
[2021-12-12] MEDS: HYDROcodone/ACETAMIN 5/325 mg TAB PO PRN ×3 (03:43→19:25)
[2021-12-12 05:49] LABS: ABS Eosinophils 0.1 10^3/ul (0-0.6); ABS Lymphocytes 1.2 10^3/ul (1.0-4.8); ABS Monocytes 0.5 10^3/ul (0-0.8); ABS Neutrophils 4.3 10^3/ul (1.5-7.7); Eosinophil % 1.1 %; Hematocrit 35 % (35-47); Hemoglobin 11.6 g/dL (12.0-16.0); Lymphocyte % 19.3 %; Mean Corpuscular HGB Conc 33 g/dL (31-36); Mean Corpuscular Hemoglobin 33 pg (27-31); Mean Corpuscular Volume 99 fL (80-97); Mean Platelet Volume 8.1 fL (7.4-10.4); Platelet Count 185 10^3/uL (150-450); Red Blood Count 3.57 10^6 /uL (3.70-4.87); Red Cell Distribution Width 14 % (10-15); White Blood Count 6.1 10^3/uL (3.5-10.8)
[2021-12-12] MEDS: Vancomycin 500 MG in NS 0.9% 250 ML IVPB SCH ×2 (06:08→17:47)
[2021-12-12 06:12] LABS: Calcium 8.3 mg/dL (8.6-10.3); Magnesium 1.9 mg/dL (1.9-2.7); Potassium 4.1 mmol/L (3.5-5.0); eGFR CKD-EPI 84.8 (>60)
[2021-12-12] MEDS: Timolol 0.5% OPTH.SOL BTL BOTH EYES SCH ×2 (08:17→21:30)
[2021-12-12] MEDS: CMC:Brimonidine P 0.15%(NF) OPH SOL 5 ML BTL BOTH EYES SCH ×2 (08:17→21:30)
[2021-12-12] MEDS ORDERED: Magnesium Hydroxide LIQ 30 ML UDC PO PRN (10:29)
[2021-12-12 13:35] LABS: Activated Partial Thrombo Time 28.3 seconds (26.0-38.0); INR 0.98 (0.86-1.15)
[2021-12-12] MEDS: Magnesium Hydroxide LIQ 30 ML UDC PO SCH (21:30)
[2021-12-12] MEDS: Heparin 5000 UNITS/ML 1 mL VIAL SUBCUT SCH (21:31)
[2021-12-12] MEDS: Latanoprost 0.005% 2.5 ml BTL BOTH EYES SCH (21:31)
[2021-12-13] MEDS ORDERED: Vancomycin Trough Check NOTE FOLLOW UP ONE (05:30)
[2021-12-13 05:32] LABS: ABS Eosinophils 0.1 10^3/ul (0-0.6); ABS Lymphocytes 1.3 10^3/ul (1.0-4.8); ABS Monocytes 0.4 10^3/ul (0-0.8); Hematocrit 40 % (35-47); Hemoglobin 13.2 g/dL (12.0-16.0); Lymphocyte % 22.7 %; Mean Corpuscular HGB Conc 33 g/dL (31-36); Mean Corpuscular Hemoglobin 32 pg (27-31); Mean Corpuscular Volume 97 fL (80-97); Nucleated Red Blood Cells % 0.1; Platelet Count 196 10^3/uL (150-450); Red Blood Count 4.08 10^6 /uL (3.70-4.87); Red Cell Distribution Width 14 % (10-15); White Blood Count 5.9 10^3/uL (3.5-10.8)
[2021-12-13 05:51] LABS: Vancomycin Trough 8.4 mcg/mL; eGFR CKD-EPI 89.2 (>60)
[2021-12-13] MEDS: HYDROcodone/ACETAMIN 5/325 mg TAB PO PRN ×3 (06:02→20:20)
[2021-12-13] MEDS: Vancomycin 500 MG in NS 0.9% 250 ML IVPB SCH (06:02)
[2021-12-13 06:36] LABS: Calcium 8.4 mg/dL (8.6-10.3); Potassium 3.8 mmol/L (3.5-5.0); eGFR CKD-EPI 90.3 (>60)
[2021-12-13] MEDS: Magnesium Hydroxide LIQ 30 ML UDC PO SCH ×2 (08:20→20:19)
[2021-12-13] MEDS: Timolol 0.5% OPTH.SOL BTL BOTH EYES SCH ×2 (08:24→20:22)
[2021-12-13] MEDS: Heparin 5000 UNITS/ML 1 mL VIAL SUBCUT SCH ×2 (08:25→20:21)
[2021-12-13] MEDS: CMC:Brimonidine P 0.15%(NF) OPH SOL 5 ML BTL BOTH EYES SCH ×2 (08:27→20:36)
[2021-12-13] MEDS: Vancomycin 750 MG in NS 0.9% 250 ML IVPB SCH (17:33)
[2021-12-13] MEDS: Latanoprost 0.005% 2.5 ml BTL BOTH EYES SCH (20:57)
[2021-12-14] MEDS: Vancomycin 750 MG in NS 0.9% 250 ML IVPB SCH ×2 (05:24→17:35)
[2021-12-14] MEDS: Magnesium Hydroxide LIQ 30 ML UDC PO SCH ×2 (08:26→20:43)
[2021-12-14] MEDS: Timolol 0.5% OPTH.SOL BTL BOTH EYES SCH ×2 (08:28→20:25)
[2021-12-14] MEDS: Heparin 5000 UNITS/ML 1 mL VIAL SUBCUT SCH ×2 (08:29→20:24)
[2021-12-14] MEDS: HYDROcodone/ACETAMIN 5/325 mg TAB PO PRN ×2 (08:39→15:50)
[2021-12-14] MEDS: CMC:Brimonidine P 0.15%(NF) OPH SOL 5 ML BTL BOTH EYES SCH ×2 (08:41→20:43)
[2021-12-14] MEDS: Latanoprost 0.005% 2.5 ml BTL BOTH EYES SCH (20:48)
[2021-12-15] MEDS: HYDROcodone/ACETAMIN 5/325 mg TAB PO PRN ×2 (03:05→20:59)
[2021-12-15] MEDS ORDERED: Vancomycin Trough Check NOTE FOLLOW UP ONE (05:30)
[2021-12-15 05:42] LABS: ABS Eosinophils 0.1 10^3/ul (0-0.6); ABS Lymphocytes 1.2 10^3/ul (1.0-4.8); ABS Monocytes 0.4 10^3/ul (0-0.8); ABS Neutrophils 3.2 10^3/ul (1.5-7.7); Eosinophil % 2.8 %; Hematocrit 34 % (35-47); Hemoglobin 11.2 g/dL (12.0-16.0); Lymphocyte % 23.8 %; Mean Corpuscular HGB Conc 33 g/dL (31-36); Mean Corpuscular Hemoglobin 32 pg (27-31); Mean Corpuscular Volume 98 fL (80-97); Mean Platelet Volume 7.9 fL (7.4-10.4); Platelet Count 193 10^3/uL (150-450); Red Blood Count 3.48 10^6 /uL (3.70-4.87); Red Cell Distribution Width 15 % (10-15)
[2021-12-15] MEDS: Vancomycin 750 MG in NS 0.9% 250 ML IVPB SCH ×2 (06:39→18:14)
[2021-12-15] MEDS: Magnesium Hydroxide LIQ 30 ML UDC PO SCH ×2 (07:00→20:46)
[2021-12-15] MEDS: Timolol 0.5% OPTH.SOL BTL BOTH EYES SCH ×2 (08:02→20:41)
[2021-12-15] MEDS: CMC:Brimonidine P 0.15%(NF) OPH SOL 5 ML BTL BOTH EYES SCH ×2 (08:02→20:44)
[2021-12-15] MEDS: Heparin 5000 UNITS/ML 1 mL VIAL SUBCUT SCH ×2 (08:02→20:42)
[2021-12-15] MEDS: Latanoprost 0.005% 2.5 ml BTL BOTH EYES SCH (20:50)
[2021-12-16] MEDS: Vancomycin 750 MG in NS 0.9% 250 ML IVPB SCH ×2 (05:58→18:28)
[2021-12-16] MEDS: Magnesium Hydroxide LIQ 30 ML UDC PO SCH ×2 (08:41→22:45)
[2021-12-16] MEDS: Heparin 5000 UNITS/ML 1 mL VIAL SUBCUT SCH ×2 (08:41→22:38)
[2021-12-16] MEDS: Timolol 0.5% OPTH.SOL BTL BOTH EYES SCH ×2 (08:42→22:34)
[2021-12-16] MEDS: CMC:Brimonidine P 0.15%(NF) OPH SOL 5 ML BTL BOTH EYES SCH ×2 (08:42→22:40)
[2021-12-16] MEDS: HYDROcodone/ACETAMIN 5/325 mg TAB PO PRN ×2 (15:07→22:37)
[2021-12-16] MEDS: Latanoprost 0.005% 2.5 ml BTL BOTH EYES SCH (22:45)
[2021-12-17] MEDS ORDERED: Vancomycin Trough Check NOTE FOLLOW UP ONE (05:30)
[2021-12-17] MEDS: Vancomycin 750 MG in NS 0.9% 250 ML IVPB SCH ×2 (06:07→17:16)
[2021-12-17 06:20] LABS: Vancomycin Trough 15.9 mcg/mL; eGFR CKD-EPI 87.5 (>60)
[2021-12-17] MEDS: Magnesium Hydroxide LIQ 30 ML UDC PO SCH ×2 (07:29→21:29)
[2021-12-17] MEDS: Timolol 0.5% OPTH.SOL BTL BOTH EYES SCH ×2 (08:26→21:26)
[2021-12-17] MEDS: Heparin 5000 UNITS/ML 1 mL VIAL SUBCUT SCH ×2 (08:27→21:27)
[2021-12-17] MEDS: HYDROcodone/ACETAMIN 5/325 mg TAB PO PRN ×2 (08:27→21:27)
[2021-12-17] MEDS: CMC:Brimonidine P 0.15%(NF) OPH SOL 5 ML BTL BOTH EYES SCH ×2 (08:34→21:29)
[2021-12-17] MEDS ORDERED: Hydrocortisone INJ 100 MG/2ML 2 ML VIAL IV SCH (14:00)
[2021-12-17] MEDS ORDERED: NS 0.9% 500 ml BAG 500 ML IV ONE (17:36)
[2021-12-17] MEDS ORDERED: NS 0.9% 1000 ml BAG 1,000 ML IV SCH (17:45)
[2021-12-17] MEDS: Latanoprost 0.005% 2.5 ml BTL BOTH EYES SCH (21:38)
[2021-12-18] MEDS: Vancomycin 750 MG in NS 0.9% 250 ML IVPB SCH ×2 (05:57→18:32)
[2021-12-18 05:58] LABS: ABS Eosinophils 0.1 10^3/ul (0-0.6); ABS Lymphocytes 1.2 10^3/ul (1.0-4.8); ABS Monocytes 0.5 10^3/ul (0-0.8); ABS Neutrophils 4.5 10^3/ul (1.5-7.7); Eosinophil % 1.4 %; Hematocrit 31 % (35-47); Hemoglobin 10.3 g/dL (12.0-16.0); Lymphocyte % 19.2 %; Mean Corpuscular HGB Conc 33 g/dL (31-36); Mean Corpuscular Hemoglobin 33 pg (27-31); Mean Corpuscular Volume 98 fL (80-97); Mean Platelet Volume 7.9 fL (7.4-10.4); Platelet Count 190 10^3/uL (150-450); Red Blood Count 3.13 10^6 /uL (3.70-4.87); Red Cell Distribution Width 15 % (10-15); White Blood Count 6.3 10^3/uL (3.5-10.8)
[2021-12-18 06:37] LABS: Albumin 3.2 g/dL (3.2-5.2); Albumin/Globulin Ratio 1.5 (1-3); Calcium 7.8 mg/dL (8.6-10.3); Globulin 2.1 g/dL (2-4); Potassium 3.6 mmol/L (3.5-5.0); Total Bilirubin 0.2 mg/dL (0.2-1.0); Total Protein 5.3 g/dL (6.4-8.9); eGFR CKD-EPI 90.3 (>60)
[2021-12-18] MEDS: Heparin 5000 UNITS/ML 1 mL VIAL SUBCUT SCH ×2 (08:26→21:18)
[2021-12-18] MEDS: HYDROcodone/ACETAMIN 5/325 mg TAB PO PRN (08:26)
[2021-12-18] MEDS: Magnesium Hydroxide LIQ 30 ML UDC PO SCH ×2 (08:27→21:18)
[2021-12-18] MEDS: Timolol 0.5% OPTH.SOL BTL BOTH EYES SCH ×2 (08:27→21:19)
[2021-12-18] MEDS: CMC:Brimonidine P 0.15%(NF) OPH SOL 5 ML BTL BOTH EYES SCH ×2 (08:27→21:20)
[2021-12-18] MEDS ORDERED: NS 0.9% 500 ml BAG 500 ML IV ONE (13:15)
[2021-12-18] MEDS ORDERED: Cosyntropin 0.25 MG VIAL IV ONE (13:45)
[2021-12-18 19:39] LABS: Urine Appearance Clear; Urine Bilirubin Negative (Negative); Urine Blood Negative (Negative); Urine Color Straw; Urine Glucose Negative (Negative); Urine Ketones Negative (Negative); Urine Nitrite Negative (Negative); Urine Protein Negative (Negative); Urine Urobilinogen Negative (Negative)
[2021-12-18] MEDS: Latanoprost 0.005% 2.5 ml BTL BOTH EYES SCH (21:20)
[2021-12-19] MEDS: Vancomycin 750 MG in NS 0.9% 250 ML IVPB SCH ×2 (06:20→18:04)
[2021-12-19] MEDS: HYDROcodone/ACETAMIN 5/325 mg TAB PO PRN ×2 (09:31→21:15)
[2021-12-19] MEDS: Magnesium Hydroxide LIQ 30 ML UDC PO SCH ×2 (09:32→21:10)
[2021-12-19] MEDS: Heparin 5000 UNITS/ML 1 mL VIAL SUBCUT SCH ×2 (09:32→21:10)
[2021-12-19] MEDS: CMC:Brimonidine P 0.15%(NF) OPH SOL 5 ML BTL BOTH EYES SCH ×2 (09:32→21:17)
[2021-12-19] MEDS: Timolol 0.5% OPTH.SOL BTL BOTH EYES SCH ×2 (09:32→21:18)
[2021-12-19] MEDS: Latanoprost 0.005% 2.5 ml BTL BOTH EYES SCH (21:18)
[2021-12-20] MEDS: Vancomycin 750 MG in NS 0.9% 250 ML IVPB SCH ×2 (05:38→16:03)
[2021-12-20] MEDS: CMC:Brimonidine P 0.15%(NF) OPH SOL 5 ML BTL BOTH EYES SCH (08:06)
[2021-12-20] MEDS: Timolol 0.5% OPTH.SOL BTL BOTH EYES SCH (08:06)
[2021-12-20] MEDS: Heparin 5000 UNITS/ML 1 mL VIAL SUBCUT SCH (08:07)
[2021-12-20] MEDS: HYDROcodone/ACETAMIN 5/325 mg TAB PO PRN ×2 (08:07→16:34)
[2021-12-20] MEDS: Magnesium Hydroxide LIQ 30 ML UDC PO SCH (08:08)
[2021-12-20 16:28] VITALS: BP 117/62
== END 2021-12-20 18:00 | disposition home health service (06) | DRG 902 ==
LOC: AA 12:15 → SSU 18:52
PROVIDERS: ADMIT Neurological Surgery; ATTEND Neurological Surgery